=== PATIENT | female | born 1970 | race Caucasian/White ===

== ENCOUNTER 2020-04-28 15:59 | Outpatient (REF) | payer MEDICAID, SELFPAY ==
--- NOTE | ~2020-04-28 | MM_ITS ---
EXAMINATION: MM SCREENING DIGITAL BREAST TOMOSYNTHESIS, BILATERAL CLINICAL INFORMATION: Screening. Asymptomatic. The lifetime risk of breast cancer based on the Tyrer-Cuzick Model is 9%. COMPARISON: Mammography: 04/23/2019, 03/06/2018 TECHNIQUE: Digital breast tomosynthesis is performed in both the craniocaudal and mediolateral oblique views along with computer-aided detection (CAD). Synthesized 2D images are generated from the tomosynthesis. FINDINGS: The breasts are heterogeneously dense, which may obscure small masses (ACR BI-RADS breast composition Category c). The left CC view has subtle parenchymal asymmetry inner quadrant 5.5 cm from nipple. There is no correlate on MLO view. Finding may be related to incompletely compressed glandular tissue and/or summation artifact. Patient will be recalled for additional imaging. The remainder of the bilateral breasts are unremarkable with no significant changes right breast shows no developing density or interval mass. Neither breast shows abnormal calcifications. The low right axillary node on MLO view is stable from 2018. The skin contours are smooth. MM/MM tomosynthesis screening BI IMPRESSION: 1. Left: Asymmetric density inner quadrant on CC view, possibly summation artifact or incompletely compressed glandular tissue. 2. Right: No mammographic evidence of malignancy. ASSESSMENT: BI-RADS 0: Incomplete - Need Additional Imaging Evaluation RECOMMENDATION: 1. Additional views of the left breast (3-D spot CC, 3-D rolled CC x2). 2. Targeted ultrasound if warranted after review of the additional views. 3. Radiology department staff will contact the patient for additional imaging. This patient's information was entered into a reminder system with a target due date for their next mammogram.
== END 2020-04-28 16:00 | disposition home or self-care (01) ==
LOC: HO.MAMMO 15:59
PROVIDERS: PCP Internal Medicine; Visit Provider Internal Medicine
DX: Z12.31 Encounter for screening mammogram for malignant neoplasm of breast (principal)
CPT/HCPCS: 77063; 77067

== ENCOUNTER 2020-05-31 14:32 | Outpatient (REF) | payer MEDICAID, SELFPAY ==
--- NOTE | ~2020-05-31 | MM_ITS ---
EXAMINATION: MM DIAGNOSTIC DIGITAL BREAST TOMOSYNTHESIS, LEFT CLINICAL INFORMATION: Recall from screening for subtle asymmetric density inner left breast on CC view, possibly summation artifact or incompletely compressed glandular tissue. COMPARISON: Mammography: 04/28/2020, 04/23/2019, 03/06/2018 TECHNIQUE: Digital breast tomosynthesis is performed. 2D images are generated from the tomosynthesis. The following views are obtained: Spot CC, rolled CC x2. FINDINGS: The breasts are heterogeneously dense, which may obscure small masses (ACR BI-RADS breast composition Category c). Additional views show no persistent asymmetric density. There is no developing density or interval mass or architectural abnormality. No significant changes. Results are discussed with the patient at time of visit. MM/MM tomosynthesis added views L IMPRESSION: Additional views show no persistent asymmetric density. No significant changes. ASSESSMENT: BI-RADS 1: Negative RECOMMENDATION: Routine annual mammography screening. This patient's information was entered into a reminder system with a target due date for their next mammogram.
== END 2020-05-31 14:33 | disposition home or self-care (01) ==
LOC: HO.MAMMO 14:32
PROVIDERS: PCP Internal Medicine; Visit Provider Internal Medicine
DX: N64.89 Other specified disorders of breast (principal)
CPT/HCPCS: 77061; 77065

== ENCOUNTER 2021-07-17 13:04 | Outpatient (REF) | payer OTHER, MEDICAID, SELFPAY ==
--- NOTE | ~2021-07-17 | MM_ITS ---
EXAMINATION: MM SCREENING DIGITAL BREAST TOMOSYNTHESIS, BILATERAL CLINICAL INFORMATION: Screening. Asymptomatic. The lifetime risk of breast cancer based on the Tyrer-Cuzick Model is 9%. COMPARISON: Mammography: 05/31/2020, 04/28/2020, 04/23/2019, 03/06/2018 TECHNIQUE: Digital breast tomosynthesis is performed in both the craniocaudal and mediolateral oblique views along with computer-aided detection (CAD). Synthesized 2D images are generated from the tomosynthesis. FINDINGS: The breasts are heterogeneously dense, which may obscure small masses (ACR BI-RADS breast composition Category c). There are no significant masses, abnormal calcifications, or other abnormalities. Breast tissue composition borders on average fibroglandular. Parenchymal pattern is similar to prior studies. The axilla and skin contours are unremarkable. MM/MM tomosynthesis screening BI IMPRESSION: No mammographic evidence of malignancy. ASSESSMENT: BI-RADS 1: Negative RECOMMENDATION: Routine annual mammography screening. This patient's information was entered into a reminder system with a target due date for their next mammogram.
== END 2021-07-17 13:05 | disposition home or self-care (01) ==
LOC: HO.MAMMO 13:04
PROVIDERS: PCP Internal Medicine; Visit Provider Internal Medicine
DX: Z12.31 Encounter for screening mammogram for malignant neoplasm of breast (principal)
CPT/HCPCS: 77063; 77067

== ENCOUNTER 2022-01-07 09:51 | Day surgery (SDC) | payer OTHER, MEDICAID, SELFPAY ==
[2022-01-03 09:28] VITALS: BMI 25.3
[2022-01-07 10:18] VITALS: BP 129/89; PULSE 64; RESP 16; TEMP 36.3; O2SAT 99
[2022-01-07] MEDS: Lactated Ringers 1,000 ML 100 ML IVCONT (10:25)
[2022-01-07 10:28] LABS: UPreg QC Valid YES; Urine Pregnancy NEGATIVE (NEGATIVE)
--- NOTE | 2022-01-07 11:06 | HO.ANESPROP2 ---
HPI - Anesthesia Eval Consult details Narrative: Colon surveillance [facility] Past Medical History Medical History delivery delivered Family History Family History Father Pre-diabetes HTN (hypertension) Maternal Grandmother Lung cancer Mother AC (acromioclavicular) arthritis Maternal Grandfather Colon cancer Family history of problems with anesthesia: No Surgical History Surgical History Hx of section Hx of eye surgery History of Problems with Anesthesia: No Social History Social History Household Members: Spouse Alcohol intake: current Alcohol intake frequency: does not drink Patient Tobacco Use Status: Never used Tobacco e-Cigarette/Vaping Use: Never Used Second Hand Smoke Exposure: No Use of substances other than those prescribed or required for medical reasons: No Are you DNR?: No Advance Directives: No Advance Directives Information Provided: Yes Advance Directives on File: No Meds Allergies Allergy/AdvReac Type Severity Reaction Status Date / Time No Known Allergies Allergy Verified 08/30/21 15:00 Active Medications: Current Medications Lactated Ringer's (Lr) 1,000 mls @ 100 mls/hr IVCONT .Q10H TINY Last Admin: 01/07/22 10:25 Dose: 100 mls/hr Home Medications Medication Instructions Recorded Confirmed Last Taken Type buspirone 10 mg tablet 10 mg PO BID 08/30/21 Unknown History fluticasone propionate 110 2 puff PO BID 08/30/21 Unknown History mcg/actuation HFA aerosol inhaler (Flovent HFA) fluticasone propionate 50 2 spray intranasal DAILY 08/30/21 Unknown History mcg/actuation nasal spray,suspension hydrochlorothiazide 25 mg tablet 25 mg PO DAILY 08/30/21 Unknown History trazodone 50 mg tablet 50 mg PO BEDTIME 08/30/21 Unknown History Exam Exam Date and Time: January 07, 2022 1106 Height,Weight and Vital Signs: Height 5 ft 7 in Weight 73.482 kg Last Vital Signs Temp 97.4 F 01/07/22 10:18 Pulse 64 01/07/22 10:18 Resp 16 01/07/22 10:18 BP 129/89 01/07/22 10:18 Pulse Ox 99 01/07/22 10:18 O2 Del Method 01/07/22 10:18 Pertinent Lab Results Pertinent Lab Results: Laboratory Tests 01/07/22 10:03 Urine Test NEGATIVE Airway Mallampati Class: II TM Dist: >3cm Neck ROM: Full Loose/Missing/Broken Teeth: No Heart: [id number] Lungs: cta b/l Assessment and Plan Assessment Anesthesia Assessment: Anesthesia Plan Discussed and Chart Reviewed Final Anesthetic Review Family History of Problems with Anesthesia: No History of Problems with Anesthesia: No NPO: Yes ASA Class: II Final Preanesthetic Review: No Changes in Pt Med Stat, Meds/Allgs Chart Reviewed, Consent Obtained/Reviewed and Anes Risks/Benef Reviewed Patient Risk: Intermediate Procedure Risk: Low Assessment/Block/Sedation in SS: Assess/Block/Sedation-SS Anesthetic Plan Anesthetic Plan: MAC: and Agree w/ Assess. and Plan Disposition: Standard PACU
--- NOTE | 2022-01-07 11:24 | MHC.SHP ---
Pre-Procedural Eval Section A Date of Service: 01/07/22 Section B Chief Complaint: screening Details of Present Illness: Colon cancer screening Relevant Family History (Specify if Yes): No Relevant Social History: None Present Medications: see Short Stay Collaborative assessment Medical History: No relevant PMH History of Previous Operations: Relevant previous surgery/procedure and date(s) (Hx of section Hx of eye surgery) Allergies: Allergies Allergy/AdvReac Type Severity Reaction Status Date / Time No Known Allergies Allergy Verified 08/30/21 15:00 Review of Systems Sugical H&P ROS: Negative: Constitution, Cardiovascular, Respiratory and Gastrointestinal Exam Surgical H&P Exam: Normal: Heart, Normal: Lungs, Normal: Extremities and Normal: Abdomen Plan Diagnosis/Plan: Unchanged I have reviewed the history and physical and performed a pertinent physical examination on my patient. No changes have occurred unless specified.
--- NOTE | 2022-01-07 11:28 | P.BOP_ITS ---
Brief Operative Note Date of Service: 01/07/22 Pre-op diagnosis: Colon cancer screening, FH of colon cancer - Patient reports paternal grandfather diagnosed with colorectal cancer in late 50s.? Patient reports that he only lived for around 9 months after the diagnosis.? Post-op diagnosis: other (Diverticulosis, hemorrhoids) Procedure: COLONOSCOPY TO CECUM Surgeon: Saige Watts MD Anesthesia: MAC Was an Wax Machine Operator used for this Procedure?: Yes Wax Machine Operator: Zaire Calvo Estimated blood loss (mL): 0 Pathology: none sent Condition: stable Disposition: PACU
--- NOTE | 2022-01-07 11:28 | W.PM.OPN ---
Operative Note Operative Note Date of Service: 01/07/22 Narrative: Pre-op diagnosis: Colon cancer screening, FH of colon cancer -?Patient reports paternal grandfather diagnosed with colorectal cancer in late 50s.? Patient reports that he only lived for around 9 months after the diagnosis.? Post-op diagnosis:?other (Diverticulosis, hemorrhoids) Surgeon: Saige Watts MD Anesthesia:?MAC COLONOSCOPY TILL CECUM Consent: Indications for the procedure and potential complications of bleeding, perforation, reaction to medications and missed diagnosis were discussed with the patient and informed consent was obtained. Instrument: Olympus PCF H 190 L variable stiffness pediatric colonoscope Monitoring: Vital signs and clinical assessment, intermittent blood pressure monitoring, continuous EKG monitoring, Pulse oximetry and Carbon Dioxide monitoring were done throughout the procedure. Colon withdrawl time was 18 minutes. Procedure: The patient was placed in the left lateral decubitis position and pre-procedure medications were administered. After a digital rectal examination of the ano-rectum, the video colonoscope was inserted into the rectum and advanced through the colon to the cecum. The colonoscope was slowly withdrawn in a retrograde panoramic fashion and the colon mucosa was carefully examined including a retroflexed view of the rectum. Findings and interventions are described below. Procedure Difficulty: Without difficulty Findings: Terminal Ileum: Not evaluated Cecum: Normal Ascending Colon: Normal Transverse Colon: Normal Descending Colon: Normal Sigmoid Colon: Moderate diverticulosis Rectum: Normal Ano-rectum: Small internal hemorrhoids Colon preparation: Good Impression and Post Procedure Diagnosis: Colonoscopy Findings: No polyps were detected Moderate diverticulosis seen in the sigmoid colon Small hemorrhoids on retroflexed exam. Plan: Patient has an appointment on 01/21/22 in the [facility] with Carolyn Pozo FNP-BC - advised to cancel since no polyps were removed . Repeat Colonoscopy in 5 years due to positive family hx. Above findings were reviewed with the patient and diverticulosis handout was given in the discharge area
[2022-01-07 12:05] VITALS: BP 104/65; PULSE 68; RESP 16; TEMP 36.1; O2SAT 98
[2022-01-07 12:11] VITALS: BP 104/65; PULSE 68; RESP 18; TEMP 36.1; O2SAT 98
[2022-01-07 12:26] VITALS: BP 125/83; PULSE 62; RESP 18; TEMP 36.1; O2SAT 98
== END 2022-01-07 13:07 | disposition home or self-care (01) ==
PROVIDERS: Anesthesiology; PCP Internal Medicine; Visit Provider Internal Medicine Gastroenterology
PROC: 0DJD8ZZ Inspection of Lower Intestinal Tract, Via Natural or Artificial Opening Endoscopic (ICD-10-PCS; CPT 45378; principal; 2022-01-07 11:00)
DX: Z12.11 Encounter for screening for malignant neoplasm of colon (principal); K57.30 Diverticulosis of large intestine without perforation or abscess without bleeding; K64.8 Other hemorrhoids
CPT/HCPCS: 45378; 81025

== ENCOUNTER 2022-07-23 12:49 | Outpatient (REF) | payer MEDICAID, SELFPAY ==
--- NOTE | ~2022-07-23 | MM_ITS ---
EXAMINATION: MM SCREENING DIGITAL BREAST TOMOSYNTHESIS, BILATERAL CLINICAL INFORMATION: Screening. Asymptomatic. The lifetime risk of breast cancer based on the Tyrer-Cuzick Model is 10%. COMPARISON: Mammography: 07/17/2021, 05/31/2020, 04/28/2020, 04/23/2019 TECHNIQUE: Digital breast tomosynthesis is performed in both the craniocaudal and mediolateral oblique views along with computer-aided detection (CAD). Synthesized 2D images are generated from the tomosynthesis. FINDINGS: The breasts are heterogeneously dense, which may obscure small masses (ACR BI-RADS breast composition Category c). There are no significant masses, abnormal calcifications, or other abnormalities. Parenchymal pattern is similar to prior studies. There is no developing density or architectural abnormality. The axilla and skin contours are unremarkable. No significant changes. MM/MM tomosynthesis screening BI IMPRESSION: No mammographic evidence of malignancy. ASSESSMENT: BI-RADS 1: Negative RECOMMENDATION: Routine annual mammography screening. This patient's information was entered into a reminder system with a target due date for their next mammogram.
== END 2022-07-23 12:50 | disposition home or self-care (01) ==
LOC: HO.MAMMO 12:49
PROVIDERS: PCP Internal Medicine; Visit Provider Internal Medicine
DX: Z12.31 Encounter for screening mammogram for malignant neoplasm of breast (principal)
CPT/HCPCS: 77063; 77067

== ENCOUNTER 2023-04-10 16:00 | Outpatient (RCR) | payer OTHER, SELFPAY | END 2023-04-22 13:37 | disposition home or self-care (01) | LOC: HO.PT 16:00 | PROVIDERS: PCP Internal Medicine; Visit Provider Internal Medicine | DX: M25.552 Pain in left hip (principal) | CPT/HCPCS: 97110; 97112; 97140; 97162 ==

== ENCOUNTER 2023-07-14 06:26 | Outpatient (REF) | payer OTHER, SELFPAY ==
[2023-07-14 06:48] LABS: MANUAL DIFF FLAG NO
[2023-07-14 07:53] LABS: Basophils Absolute Auto 0.1 X10*3/uL (0.0-0.2); Eosinophils Absolute Auto 0.2 X10*3/uL (0.0-0.4); Eosinophils Percent Auto 3.3 % (0-4); Hematocrit 37.2 % (37.0-47.0); Hemoglobin 12.3 g/dl (12.0-16.0); Imm Gran Abs Auto 0.01 X10*3/uL (0.00-0.03); Imm Gran Pct Auto 0.2 % (0.0-0.4); Lymphocytes Absolute Auto 1.3 X10*3/uL (1.2-4.9); Lymphocytes Percent Auto 25.5 % (20-40); Mean Corpuscular HGB Conc 33.1 g/dl (31.0-35.0); Mean Corpuscular Hemoglobin 28.3 pg (27.0-33.0); Mean Corpuscular Volume 85.5 fL (80.0-98.0); Mean Platelet Volume 10.2 fL (9.4-12.3); Monocytes Absolute Auto 0.4 X10*3/uL (0.1-1.2); Monocytes Percent Auto 8.1 % (2-11); Neutrophils Percent Auto 61.9 % (45-73); Platelet Count 358 X10*3/uL (160-400); Red Blood Count 4.35 X10*6/uL (4.20-5.50); Red Cell Distribution Width 13.1 % (11.0-16.0); White Blood Count 4.9 X10*3/uL (4.8-10.8)
[2023-07-14 08:31] LABS: Alanine Aminotransferase 16 U/L (0-31); Albumin Level 4.2 g/dL (3.5-5.0); Alkaline Phosphatase 49 U/L (39-117); Anion Gap 12 (12-20); Aspartate Amino Transferase 26 U/L (5-31); Bilirubin Direct 0.1 mg/dL (0.0-0.5); Bilirubin Total 0.4 mg/dL (0.0-1.0); Blood Urea Nitrogen 15 mg/dL (9-16); Calcium 9.9 mg/dL (8.4-10.2); Carbon Dioxide 26 mmol/L (22-29); Chloride 107 mmol/L (96-108); Cholesterol 171 mg/dL (<200); Estimated Glomerular Filt Rate > 60; Glucose Random 93 mg/dL (60-115); HDL Cholesterol 52 mg/dL (>40); LDL Cholesterol Calculated 102 mg/dL (<100); Potassium 3.5 mmol/L (3.3-5.1); Sodium 141 mmol/L (135-145); Total Protein 7.2 g/dL (6.5-8.0); Triglycerides 85 mg/dL (<150)
== END 2023-07-14 06:27 | disposition home or self-care (01) ==
LOC: HO.LAB 06:26
PROVIDERS: PCP Internal Medicine; Visit Provider Internal Medicine
DX: I10 Essential (primary) hypertension (principal)
CPT/HCPCS: 36415; 80048; 80061; 80076; 85025

== ENCOUNTER 2023-08-25 15:11 | Outpatient (REF) | payer OTHER, SELFPAY | END 2023-08-25 15:12 | disposition home or self-care (01) | LOC: HO.MAMMO 15:11 | PROVIDERS: PCP Internal Medicine; Visit Provider Internal Medicine | DX: Z12.31 Encounter for screening mammogram for malignant neoplasm of breast (principal) | CPT/HCPCS: 77063; 77067 ==

== ENCOUNTER → 2023-08-25 15:15 | Outpatient (BNV) | payer OTHER, SELFPAY | PROVIDERS: PCP Internal Medicine; Visit Provider Radiology Diagnostic Radiology | DX: Z12.31 Encounter for screening mammogram for malignant neoplasm of breast (principal) | CPT/HCPCS: 77063; 77067 ==

== ENCOUNTER → 2023-09-15 12:53 | Outpatient (REF) | payer OTHER, SELFPAY | LOC: HO.SL 12:53 | PROVIDERS: PCP Internal Medicine; Visit Provider Internal Medicine | DX: R06.83 Snoring (principal); R06.81 Apnea, not elsewhere classified | CPT/HCPCS: 95806 ==

== ENCOUNTER → 2023-09-15 19:00 | Outpatient (BNV) | payer OTHER, SELFPAY | PROVIDERS: PCP Internal Medicine; Visit Provider Internal Medicine | DX: R06.83 Snoring (principal) | CPT/HCPCS: 95806 ==

== ENCOUNTER 2023-11-19 12:34 | Emergency (ER) | payer OTHER, SELFPAY ==
--- NOTE | ~2023-11-19 | CT_ITS ---
EXAMINATION: CT HEAD WITHOUT CONTRAST CT FACIAL BONES WITHOUT CONTRAST CT CERVICAL SPINE WITHOUT CONTRAST CLINICAL INFORMATION: Fall. Head strike. COMPARISON: None. TECHNIQUE: Imaging was performed from the skull base to vertex without intravenous administration of contrast. In addition, helical noncontrast CT imaging was acquired through the cervical spine and facial bones and source images were reviewed along with axial reconstructions and sagittal and coronal MPRs. [This CT examination was performed using dose optimization techniques as appropriate, variously including the following: *Automated exposure control *Adjustment of mA and/or kV according to patient size (this includes techniques or standardized protocols for targeted exams where dose is matched to indication/reason for exam; i.e. extremities or head) *Use of iterative reconstruction technique] DLP: 263+258+692 mGy-cm FINDINGS: HEAD: No intracranial mass, hemorrhage, or midline shift is visualized. The ventricles and sulci are normal. No extra-axial collections are identified. FACIAL BONES: There is no evidence of an acute facial bone fracture. The orbits are unremarkable in appearance. Moderate mucosal thickening in the inferior left maxillary sinus. CERVICAL SPINE: There is no evidence of acute cervical spine fracture. Vertebral bodies remain normal in height. Mild to moderate degenerative spondylosis of disc height narrowing, vertebral endplate spurring and facet joint arthrosis. No pre- or paravertebral soft tissue abnormality is identified. Limited assessment of the lung apices is unremarkable. CT/CT head/brain wo IV con IMPRESSION: 1. No acute intracranial process or discrete facial bone fracture. 2. No acute cervical spine fracture or traumatic subluxation. Electronically signed by: Vijay Genao MD 11/19/2023 03:53 PM EDT
--- NOTE | ~2023-11-19 | CT_ITS ---
EXAMINATION: CT HEAD WITHOUT CONTRAST CT FACIAL BONES WITHOUT CONTRAST CT CERVICAL SPINE WITHOUT CONTRAST CLINICAL INFORMATION: Fall. Head strike. COMPARISON: None. TECHNIQUE: Imaging was performed from the skull base to vertex without intravenous administration of contrast. In addition, helical noncontrast CT imaging was acquired through the cervical spine and facial bones and source images were reviewed along with axial reconstructions and sagittal and coronal MPRs. [This CT examination was performed using dose optimization techniques as appropriate, variously including the following: *Automated exposure control *Adjustment of mA and/or kV according to patient size (this includes techniques or standardized protocols for targeted exams where dose is matched to indication/reason for exam; i.e. extremities or head) *Use of iterative reconstruction technique] DLP: 263+258+692 mGy-cm FINDINGS: HEAD: No intracranial mass, hemorrhage, or midline shift is visualized. The ventricles and sulci are normal. No extra-axial collections are identified. FACIAL BONES: There is no evidence of an acute facial bone fracture. The orbits are unremarkable in appearance. Moderate mucosal thickening in the inferior left maxillary sinus. CERVICAL SPINE: There is no evidence of acute cervical spine fracture. Vertebral bodies remain normal in height. Mild to moderate degenerative spondylosis of disc height narrowing, vertebral endplate spurring and facet joint arthrosis. No pre- or paravertebral soft tissue abnormality is identified. Limited assessment of the lung apices is unremarkable. CT/CT facial bones wo IV con IMPRESSION: 1. No acute intracranial process or discrete facial bone fracture. 2. No acute cervical spine fracture or traumatic subluxation. Electronically signed by: Vijay Genao MD 11/19/2023 03:53 PM EDT
--- NOTE | ~2023-11-19 | CT_ITS ---
EXAMINATION: CT HEAD WITHOUT CONTRAST CT FACIAL BONES WITHOUT CONTRAST CT CERVICAL SPINE WITHOUT CONTRAST CLINICAL INFORMATION: Fall. Head strike. COMPARISON: None. TECHNIQUE: Imaging was performed from the skull base to vertex without intravenous administration of contrast. In addition, helical noncontrast CT imaging was acquired through the cervical spine and facial bones and source images were reviewed along with axial reconstructions and sagittal and coronal MPRs. [This CT examination was performed using dose optimization techniques as appropriate, variously including the following: *Automated exposure control *Adjustment of mA and/or kV according to patient size (this includes techniques or standardized protocols for targeted exams where dose is matched to indication/reason for exam; i.e. extremities or head) *Use of iterative reconstruction technique] DLP: 263+258+692 mGy-cm FINDINGS: HEAD: No intracranial mass, hemorrhage, or midline shift is visualized. The ventricles and sulci are normal. No extra-axial collections are identified. FACIAL BONES: There is no evidence of an acute facial bone fracture. The orbits are unremarkable in appearance. Moderate mucosal thickening in the inferior left maxillary sinus. CERVICAL SPINE: There is no evidence of acute cervical spine fracture. Vertebral bodies remain normal in height. Mild to moderate degenerative spondylosis of disc height narrowing, vertebral endplate spurring and facet joint arthrosis. No pre- or paravertebral soft tissue abnormality is identified. Limited assessment of the lung apices is unremarkable. CT/CT cervical spine wo IV con IMPRESSION: 1. No acute intracranial process or discrete facial bone fracture. 2. No acute cervical spine fracture or traumatic subluxation. Electronically signed by: Vijay Genao MD 11/19/2023 03:53 PM EDT
[2023-11-19 13:12] VITALS: BP 137/90; PULSE 53; RESP 17; TEMP 36.3; O2SAT 99; BMI 22.9
--- NOTE | 2023-11-19 13:15 | ECG_ITS ---
Test Reason : CP Blood Pressure : / mmHG Vent. Rate : 052 BPM Atrial Rate : 052 BPM P-R Int : 160 ms QRS Dur : 080 ms QT Int : 506 ms P-R-T Axes : 042 034 011 degrees QTc Int : 470 ms Sinus bradycardia Nonspecific T wave abnormality Prolonged QT Abnormal ECG No previous ECGs available Referred By: Amador Kern Electronically Signed By:ROSS CID
--- NOTE | 2023-11-19 13:15 | ED_ITS ---
HPI - General Adult General Chief complaint: Fall Stated complaint: Fall T-1 doesnt remember it Time Seen by Provider: 11/19/23 14:18 Related Data Home Medications ?Medication ?Instructions ?Recorded ?Confirmed buspirone 10 mg tablet 10 mg PO BID 08/30/21 fluticasone propionate 110 2 puff PO BID 08/30/21 mcg/actuation HFA aerosol inhaler (Flovent HFA) fluticasone propionate 50 2 spray intranasal DAILY 08/30/21 mcg/actuation nasal spray,suspension hydrochlorothiazide 25 mg tablet 25 mg PO DAILY 08/30/21 trazodone 50 mg tablet 50 mg PO BEDTIME 08/30/21 Allergies Allergy/AdvReac Type Severity Reaction Status Date / Time No Known Allergies Allergy Verified 11/19/23 13:15 PMFSH Past Medical History Medical History delivery delivered Surgical History Hx of colonoscopy Hx of section Hx of eye surgery Family History Family History Father Pre-diabetes HTN (hypertension) Maternal Grandmother Lung cancer Mother AC (acromioclavicular) arthritis Maternal Grandfather Colon cancer Social History Social History Household Members: Spouse Alcohol intake: current Alcohol intake frequency: does not drink Patient Tobacco Use Status: Never used Tobacco e-Cigarette/Vaping Use: Never Used Second Hand Smoke Exposure: No Advance Directives: No Do you have a plan to hurt others: No Plan Physical Exam ED Vital Signs: Vital Signs - 24 hr 11/19/23 13:12 11/19/23 14:18 Temperature 97.3 F Pulse Rate 53 55 Respiratory Rate 17 18 Blood Pressure 137/90 H 149/85 H Pulse Oximetry 99 100 Oxygen Delivery Method Room Air Room Air BMI result Body Mass Index 22.9 Course Course Course Narrative: This is an RME done by PHILLIP Kern: Additional HPI, ROS, PE not included below will be deferred to primary provider. 52 yo f denies pmhx presents sp fall vs syncope yesterday. Reports she woke up on the bathroom floor and doesnt recall going into the bathroom. Recently covid + and just not feeling well. Not on thinners. Appearance: Alert.? Oriented X3.? No acute cardiopulmonary distress distress.? Head: Normocephalic, + TTP to nose, w/ mild swelling CVS: Pulses normal.? Respiratory: No respiratory distress.? Abdomen: Soft and nontender.? Skin: ? Normal skin color. Extremities: 5/5 strength to bilateral upper and lower extremities Neuro: Oriented X 3.? No motor deficit.? No sensory deficit. No focal neuro deficits. Ambulatory into triage Medications Administered Discontinued Medications Generic Name Dose Route Start Last Admin Trade Name Freq PRN Reason Stop Dose Admin Sodium Chloride 1,000 mls @ 999 mls/hr 11/19/23 14:45 11/19/23 15:11 Ns IV 11/19/23 15:45 999 mls/hr .Q1H1M TINY Administration Medical Decision Making Lab Data 11/19/23 13:46 11/19/23 13:46 Labs: Lab Results 11/19/23 Range/Units 13:46 WBC 4.0 L (4.8-10.8) X10*3/uL RBC 4.74 (4.20-5.50) X10*6/uL Hgb 13.7 (12.0-16.0) g/dl Hct 40.6 (37.0-47.0) % MCV 85.7 (80.0-98.0) fL MCH 28.9 (27.0-33.0) pg MCHC 33.7 (31.0-35.0) g/dl RDW 12.5 (11.0-16.0) % Plt Count 347 (160-400) X10*3/uL MPV 10.0 (9.4-12.3) fL Immature Gran % (Auto) 0.3 (0.0-0.4) % Neut % (Auto) 67.5 (45-73) % Lymph % (Auto) 23.4 (20-40) % [place] % (Auto) 6.5 (2-11) % Eos % (Auto) 2.0 (0-4) % Baso % (Auto) 0.3 (0-2) % Lymph # (Auto) 0.9 L (1.2-4.9) X10*3/uL [place] # (Auto) 0.3 (0.1-1.2) X10*3/uL Eos # (Auto) 0.1 (0.0-0.4) X10*3/uL Baso # (Auto) 0.0 (0.0-0.2) X10*3/uL Abs Immat Gran (auto) 0.01 (0.00-0.03) X10*3/uL Absolute Neuts (auto) 2.7 (2.0-8.3) x10*3/uL Absolute Nucleated RBC 0.000 (0.0-0.012) X10*3/uL Nucleated RBC % (auto) 0.0 (0.0-0.2) /100WBC Sodium 143 (135-145) mmol/L Potassium 3.1 L (3.3-5.1) mmol/L Chloride 104 (96-108) mmol/L Carbon Dioxide 29 (22-29) mmol/L Anion Gap 13 (12-20) BUN 18 H (9-16) mg/dL Creatinine 0.92 (0.5-1.4) mg/dL Estim Creat Clear Calc 71.1 Estimated GFR > 60 Random Glucose 124 H (60-115) mg/dL Calcium 10.0 (8.4-10.2) mg/dL Magnesium 2.3 (1.6-2.6) mg/dL Total Bilirubin 0.3 (0.0-1.0) mg/dL AST 20 (5-31) U/L ALT 14 (0-31) U/L Alkaline Phosphatase 56 (39-117) U/L Total Creatine Kinase 132 (26-140) U/L Troponin I High Sens < 2.7 (<3.5-17.0) ng/L Total Protein 7.7 (6.5-8.0) g/dL Albumin 4.3 (3.5-5.0) g/dL Influenza Type A (PCR) NEGATIVE (Negative) Influenza Type B (PCR) NEGATIVE (Negative) RSV RNA Qual (PCR) NEGATIVE (Negative) SARS-CoV-2 RNA (RT-PCR) POSITIVE A (Negative) Discharge Plan Discharge Clinical Impression: Syncope, Head injury, COVID Patient Disposition: Home, Self-Care Instructions: Syncope (DC), Head Injury (ED), COVID-19 (Coronavirus Disease 2019) (ED) Prescriptions: No Action buspirone 10 mg tablet 10 mg PO BID trazodone 50 mg tablet 50 mg PO BEDTIME hydrochlorothiazide 25 mg tablet 25 mg PO DAILY fluticasone propionate [Flovent HFA] 110 mcg/actuation HFA aerosol inhaler 2 puff PO BID fluticasone propionate 50 mcg/actuation spray,suspension 2 spray intranasal DAILY Referrals: Nilam Henry MD [Primary Care Provider] - 11/21/23 Print Language: [place]ian
[2023-11-19 13:52] LABS: MANUAL DIFF FLAG NO
[2023-11-19 13:54] LABS: Basophils Percent Auto 0.3 % (0-2); Eosinophils Absolute Auto 0.1 X10*3/uL (0.0-0.4); Hematocrit 40.6 % (37.0-47.0); Hemoglobin 13.7 g/dl (12.0-16.0); Imm Gran Abs Auto 0.01 X10*3/uL (0.00-0.03); Imm Gran Pct Auto 0.3 % (0.0-0.4); Lymphocytes Absolute Auto 0.9 X10*3/uL (1.2-4.9); Lymphocytes Percent Auto 23.4 % (20-40); Mean Corpuscular HGB Conc 33.7 g/dl (31.0-35.0); Mean Corpuscular Hemoglobin 28.9 pg (27.0-33.0); Mean Corpuscular Volume 85.7 fL (80.0-98.0); Monocytes Absolute Auto 0.3 X10*3/uL (0.1-1.2); Monocytes Percent Auto 6.5 % (2-11); Neutrophils Absolute Auto 2.7 x10*3/uL (2.0-8.3); Neutrophils Percent Auto 67.5 % (45-73); Platelet Count 347 X10*3/uL (160-400); Red Blood Count 4.74 X10*6/uL (4.20-5.50); Red Cell Distribution Width 12.5 % (11.0-16.0)
[2023-11-19 14:09] LABS: Alanine Aminotransferase 14 U/L (0-31); Albumin Level 4.3 g/dL (3.5-5.0); Alkaline Phosphatase 56 U/L (39-117); Anion Gap 13 (12-20); Aspartate Amino Transferase 20 U/L (5-31); Bilirubin Total 0.3 mg/dL (0.0-1.0); Blood Urea Nitrogen 18 mg/dL (9-16); Carbon Dioxide 29 mmol/L (22-29); Chloride 104 mmol/L (96-108); Creatinine Clr Calc Pharmacy 71.1; Estimated Glomerular Filt Rate > 60; Glucose Random 124 mg/dL (60-115); Magnesium 2.3 mg/dL (1.6-2.6); Potassium 3.1 mmol/L (3.3-5.1); Sodium 143 mmol/L (135-145); Total Protein 7.7 g/dL (6.5-8.0)
[2023-11-19 14:18] VITALS: BP 149/85; PULSE 55; RESP 18; O2SAT 100
[2023-11-19 14:21] LABS: Troponin-I High Sensitivity < 2.7 ng/L (<3.5-17.0)
[2023-11-19 14:34] LABS: Influenza A PCR NEGATIVE (Negative); Influenza B PCR NEGATIVE (Negative); Resp Syncy Virus RNA Qual PCR NEGATIVE (Negative); SARS COV2 PCR INHOUSE POSITIVE (Negative)
--- NOTE | 2023-11-19 14:46 | ED_ITS ---
HPI - Fall General Chief Complaint: Fall Stated Complaint: Fall T-1 doesnt remember it Time Seen by Provider: 11/19/23 14:18 History of Present Illness HPI Narrative: Patient is a 52-year-old female presented today with having generalized malaise weakness. Patient had some coughing congestion also have some diarrhea. Tested positive for COVID on Friday night. Started on Paxlovid on Friday. Patient on Friday night into Friday had an episode she was found on the ground. She might have hit her head and complaining of pain to her face and her nose. Patient did not come to the ED. Got some rest and elected to come to the ED on Friday. Patient positive generalized malaise. Denies any focal weakness. Denies any diaphoresis. Denies any chest pain. Positive subjective fever on and off. Patient from home. Positive history of hypertension currently is on amlodipine and hydrochlorothiazide. Positive history of anxiety. Not on blood thinners. No history of high cholesterol, smoking, mi. no family history of MO. no leg swelling. No history of blood clots. Related Data Home Medications ?Medication ?Instructions ?Recorded ?Confirmed buspirone 10 mg tablet 10 mg PO BID 08/30/21 fluticasone propionate 110 2 puff PO BID 08/30/21 mcg/actuation HFA aerosol inhaler (Flovent HFA) fluticasone propionate 50 2 spray intranasal DAILY 08/30/21 mcg/actuation nasal spray,suspension hydrochlorothiazide 25 mg tablet 25 mg PO DAILY 08/30/21 trazodone 50 mg tablet 50 mg PO BEDTIME 08/30/21 Allergies Allergy/AdvReac Type Severity Reaction Status Date / Time No Known Allergies Allergy Verified 11/19/23 13:15 Review of Systems 2 Review of Systems: Positive generalized malaise weakness positive swelling to the bridge of the nose and to the lips. Yes all other systems are reviewed and are negative PMFSH Past Medical History Attestation statement: The following information was validated with the patient. Medical History delivery delivered Surgical History Hx of colonoscopy Hx of section Hx of eye surgery Family History Family History Father Pre-diabetes HTN (hypertension) Maternal Grandmother Lung cancer Mother AC (acromioclavicular) arthritis Maternal Grandfather Colon cancer Social History Social History Household Members: Spouse Alcohol intake: current Alcohol intake frequency: does not drink Patient Tobacco Use Status: Never used Tobacco e-Cigarette/Vaping Use: Never Used Second Hand Smoke Exposure: No Advance Directives: No Do you have a plan to hurt others: No Plan Physical Exam 2 Vital Signs: Vital Signs: Last Vital Signs Temp 97.3 F 11/19/23 13:12 Pulse 55 11/19/23 14:18 Resp 18 11/19/23 14:18 BP 149/85 H 11/19/23 14:18 Pulse Ox 100 11/19/23 14:18 O2 Del Method Room Air 11/19/23 14:18 BMI result Body Mass Index 22.9 Appearance: Alert. Oriented X3. No acute distress. Eyes: Pupils equal, round and reactive to light. ENT: Pharynx normal. There is no midface tenderness. There is no malocclusion. There is mild swelling to the bilateral upper and lower lips. There is no grewal sign is no raccoon eyes. Neck: Normal inspection. Neck supple. No lymph nodes noted. No crepitus CVS: Normal heart rate and rhythm. Pulses normal. Normal S1 and S2 Respiratory: Clear bilaterally to auscultation Abdomen: Soft and nontender. No rigidity. No distention. good BS x4 Skin: Skin warm and dry. Normal skin color. Normal skin turgor. Extremities: No lower extremity edema. Neurovascular intact to all extremities. No Lacerations. No Rash Neuro: Oriented X 3. No motor deficit. No sensory deficit. Moving all extermities. No slurred speech Medications Administered Generic Name Dose Route Start Last Admin Trade Name Freq PRN Reason Stop Dose Admin Sodium Chloride 1,000 mls @ 999 mls/hr 11/19/23 14:45 11/19/23 15:11 Ns IV 11/19/23 15:45 999 mls/hr .Q1H1M TINY Administration Medical Decision Making Medical Decision Making MDM Narrative: Patient's COVID test came back positive. My interpretation of patient's EKG showed a sinus rhythm heart rate is 50 [place] QRS QTC normal no acute ST segment elevation neurologically patient is intact. Question etiology of the fall more likely vasovagal although 1 can not be sure. Enzymes ordered there were negative. Patient's EKG showed no signs of ACS. Has no risk for PE. Patient's electrolytes are normal. LFTs are normal. COVID test is positive. IV fluids ordered. No acute distress O2 sat is 99-100% on room air lung exam is clear. Differential Diagnosis Differential Diagnoses: The differential diagnosis associated with the presentation includes Arrhythmia, syncope, ACS, dehydration, COVID Admission/Observation Consideration of admission/observation: Escalation of care including admission/observation considered Lab Data MDM Lab Attestation statement: I reviewed the patient's lab results. 11/19/23 13:46 11/19/23 13:46 Labs: Lab Results 11/19/23 Range/Units 13:46 WBC 4.0 L (4.8-10.8) X10*3/uL RBC 4.74 (4.20-5.50) X10*6/uL Hgb 13.7 (12.0-16.0) g/dl Hct 40.6 (37.0-47.0) % MCV 85.7 (80.0-98.0) fL MCH 28.9 (27.0-33.0) pg MCHC 33.7 (31.0-35.0) g/dl RDW 12.5 (11.0-16.0) % Plt Count 347 (160-400) X10*3/uL MPV 10.0 (9.4-12.3) fL Immature Gran % (Auto) 0.3 (0.0-0.4) % Neut % (Auto) 67.5 (45-73) % Lymph % (Auto) 23.4 (20-40) % Latimer % (Auto) 6.5 (2-11) % Eos % (Auto) 2.0 (0-4) % Baso % (Auto) 0.3 (0-2) % Lymph # (Auto) 0.9 L (1.2-4.9) X10*3/uL [place]imer # (Auto) 0.3 (0.1-1.2) X10*3/uL Eos # (Auto) 0.1 (0.0-0.4) X10*3/uL Baso # (Auto) 0.0 (0.0-0.2) X10*3/uL Abs Immat Gran (auto) 0.01 (0.00-0.03) X10*3/uL Absolute Neuts (auto) 2.7 (2.0-8.3) x10*3/uL Absolute Nucleated RBC 0.000 (0.0-0.012) X10*3/uL Nucleated RBC % (auto) 0.0 (0.0-0.2) /100WBC Sodium 143 (135-145) mmol/L Potassium 3.1 L (3.3-5.1) mmol/L Chloride 104 (96-108) mmol/L Carbon Dioxide 29 (22-29) mmol/L Anion Gap 13 (12-20) BUN 18 H (9-16) mg/dL Creatinine 0.92 (0.5-1.4) mg/dL Estim Creat Clear Calc 71.1 Estimated GFR > 60 Random Glucose 124 H (60-115) mg/dL Calcium 10.0 (8.4-10.2) mg/dL Magnesium 2.3 (1.6-2.6) mg/dL Total Bilirubin 0.3 (0.0-1.0) mg/dL AST 20 (5-31) U/L ALT 14 (0-31) U/L Alkaline Phosphatase 56 (39-117) U/L Total Creatine Kinase 132 (26-140) U/L Troponin I High Sens < 2.7 (<3.5-17.0) ng/L Total Protein 7.7 (6.5-8.0) g/dL Albumin 4.3 (3.5-5.0) g/dL Influenza Type A (PCR) NEGATIVE (Negative) Influenza Type B (PCR) NEGATIVE (Negative) RSV RNA Qual (PCR) NEGATIVE (Negative) SARS-CoV-2 RNA (RT-PCR) POSITIVE A (Negative) Independent Interpretation I performed an independent interpretation of an: EKG (Sinus heart rate is 50 [place] QRS QTC within normal limits there is diffuse T-wave flattening noted.) Independent Historian Clinical information obtained from an independent historian. History obtained from or confirmed by: Spouse Chronic Conditions History of hypertension and anxiety Discharge Plan Discharge Clinical Impression: Syncope, Head injury, COVID Patient Disposition: Still a Patient Instructions: Syncope (DC), Head Injury (ED), COVID-19 (Coronavirus Disease 2019) (ED) Prescriptions: No Action buspirone 10 mg tablet 10 mg PO BID trazodone 50 mg tablet 50 mg PO BEDTIME hydrochlorothiazide 25 mg tablet 25 mg PO DAILY fluticasone propionate [Flovent HFA] 110 mcg/actuation HFA aerosol inhaler 2 puff PO BID fluticasone propionate 50 mcg/actuation spray,suspension 2 spray intranasal DAILY Referrals: Nilam Henry MD [Primary Care Provider] - 11/21/23 Print Language: Bahamian
[2023-11-19] MEDS: 0.9 % Sodium Chloride 1,000 ML 999 ML IV ×2 (15:11→16:09)
[2023-11-19 16:48] VITALS: BP 130/80; PULSE 61; RESP 18; TEMP 37; O2SAT 97
== END 2023-11-19 16:51 | disposition home or self-care (01) ==
PROVIDERS: Physician Assistant; Emergency Provider Emergency Medicine Emergency Medical Services; PCP Internal Medicine
DX: U07.1 COVID-19 (principal); R55 Syncope and collapse; S09.90XA Unspecified injury of head, initial encounter; W19.XXXA Unspecified fall, initial encounter; Y93.9 Activity, unspecified; Y92.9 Unspecified place or not applicable; Y99.9 Unspecified external cause status; R53.1 Weakness; R53.81 Other malaise; R05.9 Cough, unspecified; R19.7 Diarrhea, unspecified; R07.9 Chest pain, unspecified
CPT/HCPCS: 0241U; 36415; 70450; 70486; 72125; 80053; 82550; 83735; 84484; 85025; 93005; 96360; 96361; 99284

== ENCOUNTER 2024-01-21 14:51 | Outpatient (REF) | payer OTHER, SELFPAY ==
--- NOTE | 2024-01-21 14:54 | EMG_ITS ---
Chief complaint: Left hand pain Reason for referral: Evaluate for Carpal Tunnel Syndrome Referred by: Dr. Hopper Procedure done: Left upper extremity NCS/EMG Precautions and/or limitations: None The limb temperature was monitored continuously and remained between 32-36 degrees C during the performance of the NCS. Nerve Conduction Studies Anti Sensory Summary Table ?Stim Site NR Onset (ms) Norm Onset (ms) Peak (ms) Norm Peak (ms) O-P Amp (?V) Norm O-P Amp Site1 Site2 Delta-0 (ms) Dist (cm) Alen (m/s) Norm Alen (m/s) Left Median Anti Sensory (2nd Digit) Wrist ? 3.9 4.9 <3.6 2.9 >10 Wrist 2nd Digit 3.9 14.0 36 Left Radial Anti Sensory (Thumb) Forearm ? 1.4 2.5 <3.1 13.0 Forearm Thumb 1.4 0.0 Left Ulnar Anti Sensory (5th Digit) Wrist ? 0.3 3.7 <3.7 16.4 >15.0 Wrist 5th Digit 0.3 14.0 467 Motor Summary Table ?Stim Site NR Onset (ms) Norm Onset (ms) O-P Amp (mV) Norm O-P Amp iAmp (mV) Amp (1st) (%) Site1 Site2 Delta-0 (ms) Dist (cm) Alen (m/s) Norm Alen (m/s) Left Median Motor (Abd Poll Brev) Wrist ? 4.7 <3.9 6.9 >4.5 8.1 100.0 Elbow Wrist 5.0 20.5 41 >45 Elbow ? 9.7 6.4 7.6 92.8 Left Ulnar Motor (Abd Dig Minimi) Wrist ? 2.4 <3.0 5.0 >5 6.3 100.0 B Elbow Wrist 3.9 18.0 46 >45 B Elbow ? 6.3 3.6 5.1 78.3 A Elbow B Elbow 1.7 10.0 59 >45 A Elbow ? 8.0 5.2 7.3 113.0 EMG ?Side Muscle Nerve Root Ins Act Fibs Psw Amp Dur Poly Recrt Int Pat Comment Left 1stDorInt Ulnar C8-T1 Nml Nml Nml Nml Nml 0 Nml Complete Left FlexCarRad Median C6-7 Nml Nml Nml Nml Nml 0 Nml Complete Left Biceps Musculocut C5-6 Nml Nml Nml Nml Nml 0 Nml Complete Left Triceps Radial C6-7-8 Nml Nml Nml Nml Nml 0 Nml Complete Left Deltoid Axillary C5-6 Nml Nml Nml Nml Nml 0 Nml Complete FINDINGS: Left median motor nerve showed prolonged distal latency, normal amplitude and slow conduction velocity. Left median sensory nerve showed prolonged peak latency and small amplitude. All other nerves tested were within normal. Concentric needle EMG was performed in selected muscles of the left upper extremity. Study did not reveal signs of electric abnormalities as shown in the table above. IMPRESSION: 1. This is an abnormal study. 2. There is electrodiagnostic evidence for left moderate-severe median neuropathy at the wrist, consistent with carpal tunnel syndrome. 3. There is no electrodiagnostic evidence for ulnar neuropathy, brachial plexopathy, or cervical radiculopathy. Thank you for your kind referral. Soumya Hernandes MD, HAROON Board Certified, [place] [employer] and [employer] (ABPMR) Board Certified, [place] Board [employer] Electro[employer]ostic [employer] (ABEM) [place] [id number] [facility]
== END 2024-01-21 14:52 | disposition home or self-care (01) ==
LOC: HO.NEURO 14:51
PROVIDERS: PCP Internal Medicine; Visit Provider Internal Medicine
DX: R20.0 Anesthesia of skin (principal); R20.2 Paresthesia of skin
CPT/HCPCS: 95886; 95909

== ENCOUNTER → 2024-01-21 14:54 | Outpatient (BNV) | payer OTHER, SELFPAY | PROVIDERS: PCP Internal Medicine; Visit Provider Physical Medicine & Rehabilitation | DX: G56.02 Carpal tunnel syndrome, left upper limb (principal) | CPT/HCPCS: 95886; 95909 ==

== ENCOUNTER 2024-05-13 17:39 | Outpatient (REF) | payer MEDICAID, SELFPAY ==
--- OUTSIDE RECORDS SUMMARY | 2024-05-13 19:39 | XMS_ITS | Encounter Summary ---
Author Organization [employer] Address [address] [facility] [address] [place] [address] Care Team Providers Care Machinist General Name Role Phone Nilam Henry MD Primary Care Provide r Encounter Details Date Type Department Care Team (Late st Contact Info) Description 05/13/2024 1:20 PM EST Office Visit [facility] [address] [place] [address] Kristen Cooper DO [address] [place] [address] Labial lesion (Primary Dx) Social History Tobacco Use Types Packs/Day Years Used Date Smoking Tobacco: Never Passive Smoke Exposure: Never Smokeless Tobacco: Never Alcohol Use Standard Drinks/Week Comments Never 0 (1 standard drink = 0.6 oz pur e alcohol) Alcohol Answer Date Recorded Frequency of Alcohol Consumption Not on file 12/29/2023 Average Number of Drinks Not on file 024 Frequency of Binge Drinking Not on file 12/09 Score 0 12/29/2023 Depression Answer Date Recorded Patient Health Questionnaire-9 Score 12 11/27/2023 Patient Health Questionnaire-9 Score 12 11/27/2023 Last PHQ-9: Questionnaire Data Not on file 0 11/27/2023 Housing Stability Answer Date Recorded What is your housing situation today? I have anjalichato rehman 10/29/[address] you li ve. Do you have problems with any of the following? Mold 10/29/2023 Food Insecurity Answer Date Recorded Within the past 12 months, y ou worried that your food would run out before you got money to buy more: Never True 10/29/2023 Within the past 12 months,th e food you bought just didn't last and you didn't have enough money to get more: Never True Transportation Answer Date Recorded In the past 12 months, has l ack of transportation kept you from medical appts, meetings, work or from getting things needed for daily living? No 10/29/2023 Utilities Answer Date Recorded In the past 12 months, has t he electric, gas, oil or water company threatened to shut off services in your home? No 10/29/2023 Depression Answer Date Recorded Patient Health Questionnaire-2 Score 3 11/27/2023 Internet Access Answer Date Recorded Internet Access Q1 Yes 11/07/2023 Internet Access Q2 Not on file 11/07/2023 Comments Unknown Sex and Gender Information Value Date Recorded Sex Assigned at Female 01/07/2022 10:33 AM EDT Legal Sex Female 10:33 AM EDT Gender Identity Female 01/07/2022 10:33 AM EDT Sexual Orientation Straight 01/07/2022 10 :33 AM EDT documented as of this encounter Last Filed Vital Signs Vital Sign Reading Time Taken Comments Blood Pressure 124/88 05/13/2024 1:15 PM EST Pulse 84 05/13/2024 1:15 PM EST Temperature 37.1 ??C (98.7 ??F) 05/13/2024 1:15 PM ES T Respiratory Rate 19 05/13/2024 1:15 PM EST Oxygen Saturation 98% 05/13/2024 1:15 PM EST Inhaled Oxygen Concentration - - Weight 67.3 kg (148 lb 6 oz) 05/13/2024 1:15 PM EST Height 170.2 cm (5' 7 ) 05/13/2024 1:15 PM EST Body Mass Index 23.24 05/13/2024 1:15 PM EST documented in this encounter Progress Notes * Kristen Cooper, DO - 05/13/2024 1:20 PM EST JEANETH Fabian Melara is a 53 y.o. female who presents for Sick Visit. She presents to [place] today c/o vaginal blisters. She says that the blisters started about 5 days ago. She has never had vaginal blisters or lesions previously. She says that she took and shower last night and felt the bumps so she had her take a look. She says that he told her that there were 6 blisters with white center and a red ring around the outside of each. She has not noticed any bleeding or discharge from the blisters. She denies any pain or burning at the blister site. 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 She says that the blisters burn when she urinates. She does not feel that she has a UTI. She drinksa lot of water. She denies any urinary frequency. No hematuria or frequency. She denies any abnormal vaginal discharge. She does shave but has not done so in a couple of weeks. She and her were sexually active while they were in [place] on vacation last week. Her blisters appeared a couple days after returning home. She denies any other lifetime sexual partners and her has told her the same. 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 The problem is unchanged. The affected locations include the groin. The rash is characterized by burning and blistering. She was exposed to nothing. Pertinent negatives include no cough, diarrhea, fever, shortness of breath or vomiting. Past treatments include nothing. Review of Systems Constitutional: Negative for activity change, appetite change, chills, fever and unexpected weight change. Respiratory: Negative for cough and shortness of breath. Cardiovascular: Negative for chest pain, palpitations and leg swelling. Gastrointestinal: Negative for abdominal pain, diarrhea, nausea and vomiting. Genitourinary: Positive for dysuria and genital sores. Skin: Positive for rash. Neurological: Negative for weakness and headaches. Patient Active Problem List Diagnosis Allergic rhinitis Anxiety Apnea Essential hypertension Hypertensive disorder Insomnia Mild intermittent asthma Mood disorder (CMS/HCC) Persistent hypersomnia Recurrent major depression (CMS/HCC) Snoring Visual impairment Numbness and tingling in left hand Encounter for physical examination Left hip pain Chronic sinusitis Discoloration of skin No Known Allergies OBJECTIVE Visit Vitals BP 124/88 (BP Location: Right arm, Patient Position: Sitting, BP Cuff Size: Adult) Pulse 84 Temp 98.7 ??F (37.1 ??C) (Oral) Resp 19 Ht 5' 7 (1.702 m) Wt 148 lb 6 oz (67.3 kg) SpO2 98% BMI 23.24 kg/m?? Smoking Status Never BSA 1.78 m?? Physical Exam Constitutional: General: She is not in acute distress. Appearance: Normal appearance. Cardiovascular: Rate and Rhythm: Normal rate and regular rhythm. Heart sounds: Normal heart sounds. No murmur heard. Pulmonary: Effort: Pulmonary effort is normal. Breath sounds: Normal breath sounds. No wheezing or rhonchi. Genitourinary: Labia: Right: Lesion present. Comments: Multiple small round vesicles lower R labia minora with couple unroofed Neurological: General: No focal deficit present. Mental Status: She is alert and oriented to person, place, and time. Cranial Nerves: No cranial nerve deficit. Motor: No weakness. Gait: Gait normal. Psychiatric: Mood and Affect: Mood normal. 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 -send herpes culture -reviewed HSV epidemiology and infection with pt -she defers treatment with valtrex, given onset of sx >5 days ago -encouraged vaseline use to keep open lesions covered -consider STI/HIV testing -advised contact [facility] if sx change or do not resolve, she agrees with plans --Follow-up with PCP as scheduled or sooner prn-- Current Outpatient Medications: amLODIPine (Norvasc) 2.5 MG tablet, TAKE 1 TABLET BY MOUTH EVERY DAY, Disp: 90 tablet, Rfl: 1 busPIRone (Buspar) 15 MG tablet, Take 1 tablet by mouth 2 times daily., Disp: , Rfl: hydroCHLOROthiazide (HYDRODiuril) 25 MG tablet, TAKE 1 TABLET BY MOUTH EVERY DAY IN THE MORNING, Disp: 90 tablet, Rfl: 1 loratadine (Claritin) 10 MG tablet, TAKE 1 TABLET BY MOUTH EVERY MORNING, Disp: 90 tablet, Rfl: 3 fymarhbs-kefmdgvjfz-bfnepcjeo (Neosporin) 5-400-5000 ointment, Apply topically if needed in the morning, at noon, and at bedtime for irritation., Disp: 28 g, Rfl: 2 Scribe Attestation: Rory Browne, am serving as a scribe to document services personally performed by Kristen Patino, based on the patient's response to questions by provider and provider's statements to me. 05/13/24 3:00 PM Physicians Attestation: Kristen Browne DO, have reviewed the information by the scribe, Rory Briceno, for accuracy and agree with its content. documented in this encounter Plan of Treatment Scheduled Orders Name Type Priority Associated Diagnoses Orde r Schedule Herpes Simplex Virus Culture with Reflex Typing Microbiology Routine Labial lesion Expected: 05/13/2024, Expires: 05/13/2025 documented as of this encounter Visit Diagnoses Diagnosis Labial lesion- Primary Other specified noninflammatory disorder of vulva and perineum documented in this encounter Additional Health Concerns Assessment Noted Time PHQ-9 Depression Total Score: 12 11/26/ 024 11:11 AM EDT documented as of this encounter Care Teams Machinist General Relationship Specialty Start Date End Date Nilam Henry MD [address] [place] [address] PCP - General Family Medicine 02/26/19 documented as of this encounter
--- OUTSIDE RECORDS SUMMARY | 2024-05-13 19:39 | XMS_ITS | Encounter Summary ---
Author Organization [employer] Address [address] [facility] [address] [place] [address] Care Team Providers Care Hub Lead Name Role Phone Nilam Henry MD Primary Care Provide r Reason for Visit * Reason Comments Med Refill Encounter Details Date Type Department Care Team (Late st Contact Info) Description 12/03/2023 Refill [facility] [address] [place] [address] Nilam Henry MD [address] [place] [address] Essential hypertension Social History Tobacco Use Types Packs/Day Years Used Date Smoking Tobacco: Never Passive Smoke Exposure: Never Smokeless Tobacco: Never Alcohol Use Standard Drinks/Week Comments Never 0 (1 standard drink = 0.6 oz pur e alcohol) Depression Answer Date Recorded Patient Health Questionnaire-9 [...] AM EDT documented as of this encounter Plan of Treatment Not on file documented as of this encounter Visit Diagnoses Diagnosis Essential hypertension Unspecified essential hypertension documented in this encounter Additional Health Concerns Assessment Noted Time PHQ-9 Depression Total Score: 12 024 11:11 AM EDT documented as of this encounter Care Teams Hub Lead Relationship Specialty Start Date End Date Nilam Henry MD [address] [place] [address] PCP - General Family Medicine 02/26/19 documented as of this encounter
--- OUTSIDE RECORDS SUMMARY | 2024-05-13 19:39 | XMS_ITS | Clinical Summary ---
Author Organization [employer] Address [address] [facility] [address] [place] [address] Care Team Providers Care Labor Service Representative Name Role Phone Nilam Henry MD Primary Care Provide r Allergies No known active allergies Medications loratadine (Claritin) 10 MG tablet TAKE 1 TABLET BY MOUTH EVERY MORNING 90 tablet 3 11/13/19 23 Active hydroCHLOROthia zide (HYDRODiuril) 25 MG tabletIndicatio ns:Essential hypertension TAKE 1 TABLET BY MOUTH EVERY DAY IN THE MORNING 90 tablet 1 12/18/19 24 Active busPIRone (Buspar) 15 MG tablet Take 1 tablet by mouth 2 times daily. 12/05/19 24 Active amLODIPine (Norvasc) 2.5 MG tabletIndicatio ns:Essential hypertension TAKE 1 TABLET BY MOUTH EVERY DAY 90 tablet 1 03/11/19 25 Active neomycin-bacitr acin-polymyxin (Neosporin) 5-400-5000 ointment Apply topically if needed in the morning, at noon, and at bedtime for irritation. 28 g 2 05/14/19 25 Active Dextromethorpha n-guaiFENesin (Mucinex DM) 30-600 MG tablet sustained-relea se 12 hour Use 1 tab TID 28 tablet 11/17/19 24 025 Discontinued Paxlovid, 300/100, 20 x 150 MG & 10 x 100MG tablet therapy pack TAKE 3 TABLETS BY MOUTH TWICE DAILY DIRECTED ON BOX FOR 5 DAYS 30 each 11/17/19 24 025 Discontinued(Th erapy completed) Active Problems Problem Noted Date Diagnosed Date Discoloration of skin 07/22/2023 Chronic sinusitis 06/20/2023 Left hip pain 02/19/2023 Encounter for physical examination 09/17/2022 Assessment & Plan (12/29/2023 4:39 PM EDT): No concern at this visit Patient update on covid and flu vaccine Next physical assessment 2024 Assessment & Plan (09/17/2022 10:13 AM EDT): Pelvic exam done, samples send to lab patient will be contacted with results RTC 1 year PE Numbness and tingling in left hand 07/19/2022 Assessment & Plan (12/29/2023 4:34 PM EDT): Awaiting for nerve conduction studies Wear wrist brace as recommended Assessment & Plan (02/19/2023 4:52 PM EST): Waiting for nerve conduction studies Wrist brace recommended Assessment & Plan (09/17/2022 10:13 AM EDT): Patient will be contacted with results Allergic rhinitis 07/18/2022 Assessment & Plan (07/22/2023 2:07 PM EDT): C/w loratadine daily Apnea 07/18/2022 Essential hypertension 07/18/2022 Assessment & Plan (07/22/2023 2:07 PM EDT): - Aerobic exercise to reduce BP. Initial goal of 30 min walk 3-5x/week. Increase as tolerated. - low-sodium diet (goal: <2g/day) and heart healthy diet such as DASH to reduce BP and prevent ASCVD. - Home BP monitoring 1-2 x day with goal of <140/90. - Seek immediate medical attention for chest pain, palpitations, SOB, syncope, or sudden changes in mental status. - Do not change or discontinue current prescriptions without first consulting health care provider Assessment & Plan (06/20/2023 4:22 PM EDT): I advise: - Aerobic exercise to reduce BP. Initial goal of 30 min walk 3-5x/week. Increase as tolerated. - low-sodium diet (goal: <2g/day) and heart healthy diet such as DASH to reduce BP and prevent ASCVD. - Home BP monitoring 1-2 x day with goal of <140/90. - Seek immediate medical attention for chest pain, palpitations, SOB, syncope, or sudden changes in mental status. - Do not change or discontinue current prescriptions without first consulting health care provider Assessment & Plan (02/19/2023 4:52 PM EST): - Aerobic exercise to reduce BP. Initial goal of 30 min walk 3-5x/week. Increase as tolerated. - low-sodium diet (goal: <2g/day) and heart healthy diet such as DASH to reduce BP and prevent ASCVD. - Home BP monitoring 1-2 x day with goal of <140/90. - Seek immediate medical attention for chest pain, palpitations, SOB, syncope, or sudden changes in mental status. - Do not change or discontinue current prescriptions without first consulting health care provider Assessment & Plan (07/19/2022 12:28 PM EDT): Maintenance: BMP: ordered Lipid Panel: ordered ASCVD Risk: Calculate pending updated labs - Aerobic exercise to reduce BP. Initial goal of 30 min walk 3-5x/week. Increase as tolerated. - low-sodium diet (goal: <2g/day) and heart healthy diet such as DASH to reduce BP and prevent ASCVD. - Home BP monitoring 1-2 x day with goal of <140/90. - Seek immediate medical attention for chest pain, palpitations, SOB, syncope, or sudden changes in mental status. -I re-start hydrochlorothiazide - Do not change or discontinue current prescriptions without first consulting health care provider Insomnia 07/18/2022 Mild intermittent asthma 07/18/2022 Mood disorder 07/18/2022 Persistent hypersomnia 07/18/2022 Snoring 07/18/2022 Assessment & Plan (07/22/2023 2:07 PM EDT): Awaiting for sleep studies Visual impairment 07/18/2022 Hypertensive disorder 11/07/2017 Anxiety 04/07/2017 Recurrent major depression 04/07/2017 Encounters Date Type Department Care Team Description 05/13/2024 1:20 PM EST Office Visit [facility] [address] [place] [address] Kristen Cooper DO Labial lesion (Primary Dx) 03/11/2024 Refill [facility] [address] [place], [place] [phone] Nilam Henry MD Essential hypertension from Last 3 Months Immunizations Name Administration Dates Next Due INFLUENZA VACCINE QUADRIVALE NT RECOMBINANT PRESERVATIVE FREE RIV4 01/05/2019 Influenza Injectable Quadriv alant Preservative Free IIV4 MDCK 01/30/2021,01/04/2020 Influenza injectable quadriv alent preservative free 11/14/2022,12/16/2021,03/05/2018 Influenza, seasonal, injecta ble, preservative free 12/19/2023 Pfizer Covid-19 Vaccine 12+ 12/19/2023 Tdap 04/07/2017 Family History Medical History Relation Name Comments Pulmonary embolism Mother Relation Name Status Comments Mother Social History Tobacco Use Types Packs/Day Years Used Date Smoking Tobacco: Never Passive Smoke Exposure: Never Smokeless Tobacco: Never Tobacco Cessation:Counseling Given: Not Answered Alcohol Use Standard Drinks/Week Comments Never 0 [...] is your housing situation today? I have anjali rehman 10/29/[address] you [...] Orientation Straight 01/07/2022 10 :33 AM EDT Last Filed Vital Signs Vital Sign Reading [...] Mass Index 23.24 05/13/2024 1:15 PM EST Plan of Treatment Health Maintenance Due Date Last Done Comments CT Colonography 1972 FIT DNA/Cologuard 1972 FIT 1972 FOBT 1972 HIV Screening 1972 Sigmoidoscopy 1972 Family Planning (PISQ) 12/09/1987 Hepatitis C Screening 1990 Hepatitis B Vaccines (1 of 3 - 19+ 3-dose series) 12/09/1991 Pneumococcal Vaccine: 50+ Years (1 of 2 - PCV) 12/09/1991 Zoster Vaccines (1 of 2) 2022 Depression Monitoring (PHQ-9) 05/26/2024 11/27/2023, 11/27/2023 Mammogram 08/24/2024 08/25/2023, 07/08, 07/23/2022, Additional history exists SDOH Screening 10/28/2024 10/29/2023 Depression Screening 11/26/2024 11/27/2023, 11/27/19 24 Alcohol/Substance Use Screening 12/28/2024 12/29/2023 Tobacco Screening 05/13/2025 05/13/2024 Colonoscopy 01/07/2027 Colorectal Cancer Screening 01/07/2027 DTaP/Tdap/Td Vaccines (2 - Td or Tdap) 04/07/2027 04/07/2017 Cervical Cancer Screening 09/18/2027 HPV/Cotest 09/18/2027 09/17/2022, 11/07/2017 Pap Smear 09/18/2027 09/17/2022 Lipid Panel 07/13/2028 07/14/2023, 07/08, 07/06/2021 RSV Patients and Patients Aged 60 years or older (1 - 1-dose 75+ series) 12/09/2047 COVID-19 Vaccine Completed 12/19/2023, 12/2021, 05/05/2020, Additional history exists Influenza Vaccine Completed 12/19/2023, , 12/16/2021, Additional history exists HIB Vaccines Aged Out No longer eligi ble based on patient's age to complete this topic HPV Vaccines Aged Out No longer eligi ble based on patient's age to complete this topic Hepatitis A Vaccines Aged Out No long er eligible based on patient's age to complete this topic IPV Vaccines Aged Out No longer eligi ble based on patient's age to complete this topic Meningococcal Vaccine Aged Out No flavia varinder eligible based on patient's age to complete this topic RSV under 20 months Aged Out No longe r eligible based on patient's age to complete this topic Rotavirus Vaccines Aged Out No longer eligible based on patient's age to complete this topic Procedures Procedure Name Priority Date/Time Associated Diagnosis Comments BI MAMMOGRAM SCREENING TOMOSYNTHESIS BILATERAL Routine 08/25/2023 3:45 PM EDT LIPID PANEL, STANDARD Routine 07/14/2023 6:44 AM EDT Essential hypertension HM PAP/HPV Routine 09/17/2022 from Last 3 Months or Most Recently Relevant to Health Maintenance Results * BI Mammogram Screening Tomosynthesis Bilateral (08/25/2023 3:45 PM EDT) Anatomical Region Laterality Modality Breast Bilateral Mammography 08/25/2023 3:45 PM EDT Narrative 09/22/2023 4:43 PM EDT ? [facility] ? [address] ?[place] [address] ? Mammography Report ? Signed ? Patient: Venkata Julio ?MR#: M ?? [id number] ? : 1970 ?Acct:[id number] ? Age/Sex: 52 / F ?ADM Date: 08/24/ ? Loc: HO.MAMMO ? Attending Dr: Nilam Hopper MD ? Ordering Physician: Nilam Henry MD ?Results: ?? 1Negative ? Date of Service: 08/24/ ?Follow Up: 1 Year From Orig ?? inal Mammogram ? Procedure(s): MM tomosynthesis screening BI ?? Accession Number(s): [id number] ? cc: Nilam Henry MD ? EXAMINATION: ?? MM SCREENING DIGITAL BREAST TOMOSYNTHESIS, BILATERAL ? CLINICAL INFORMATION: ? Screening. Asymptomatic. ? COMPARISON: ?? Mammography: This study is compared with prior exams dating back to ?? 2019. ? TECHNIQUE: ?? Digital breast tomosynthesis is performed in both the craniocaudal and ?? mediolateral oblique views along with computer-aided detection (CAD). ?? Synthesized 2D images are generated from the tomosynthesis. ? FINDINGS: ?? The breasts are heterogeneously dense, which may obscure small masses ?? (ACR BI-RADS breast composition Category c). ? There are no significant masses, abnormal calcifications, or other ?? abnormalities. ? MM/MM tomosynthesis screening BI ?? IMPRESSION: ?? No mammographic evidence of malignancy. ? ASSESSMENT: ? BI-RADS BI-RADS 1 - Negative ? RECOMMENDATION: ?? Routine annual mammography screening. ? 1 year F/U ? This examination should not preclude the clinical evaluation of a ?? suspicious palpable abnormality. ? This patient's information was entered into a reminder system with a ?? target due date for their next mammogram. ? Dictated By: ?Kandice Mckeon MD ? Signed By: ?<Electronically signed by Kandice Mckeon MD in OV> ? 09/22/23 1640 ? DD/ 1545 ? TD/TT: ? Tape Recording Machine Operator: ? Procedure Note Alisa, Image - 09/22/2023 [facility] [facility] [address] [place] [address] [place] [address] Mammography Report Signed Patient: Venkata Julio MMR#: M [id number] : 1970Acct:[id number] Age/Sex: 52 / FADM Date: 08/25/23 Loc: MAMMO Attending Dr: Nilam Hopper MD Ordering Physician: Nilam Henry MDResults: 1Negative Date of Service: 08/25/23Follow Up: 1 Year From Orig inal Mammogram Procedure(s): MM tomosynthesis screening BI Accession Number(s): [id number] cc: Nilam Henry MD EXAMINATION: MM SCREENING DIGITAL BREAST TOMOSYNTHESIS, BILATERAL CLINICAL INFORMATION: Screening. Asymptomatic. COMPARISON: Mammography: This study is compared with prior exams dating back to 2019. TECHNIQUE: Digital breast tomosynthesis is performed in both the craniocaudal and mediolateral oblique views along with computer-aided detection (CAD). Synthesized 2D images are generated from the tomosynthesis. FINDINGS: The breasts are heterogeneously dense, which may obscure small masses (ACR BI-RADS breast composition Category c). There are no significant masses, abnormal calcifications, or other abnormalities. MM/MM tomosynthesis screening BI IMPRESSION: No mammographic evidence of malignancy. ASSESSMENT: BI-RADS BI-RADS 1 - Negative RECOMMENDATION: Routine annual mammography screening. 1 year F/U This examination should not preclude the clinical evaluation of a suspicious palpable abnormality. This patient's information was entered into a reminder system with a target due date for their next mammogram. Dictated By: Kandice Mckeon MD Signed By: <Electronically signed by Kandice Mckeon MD in OV> 09/22/23 1640 DD/ 1545 TD/TT: Tape Recording Machine Operator: Nilam Hopper MD IMG BI PROCEDURES Fin al Result * (ABNORMAL) Lipid Panel, Standard (07/14/2023 6:44 AM EDT) Triglycerides 85 <150 mg/dL [facility] Comment:Desirable Triglyceri de: less than 150 mg/dLBorderline High Triglyceride 150-199 mg/dLHigh Triglyceride: 200-499 mg/dLVery High Triglyceride: greater than or equal to 5OO mg/dL Cholesterol 171 <200 mg/dL [facility] Comment:Desirable Cholestero l: less than 200 mg/dLBorderline High Cholesterol: 200-239 mg/dLHigh Cholesterol: greater than 239 mg/dL LDL Cholesterol Calculated 102(H) <100 mg/dL [facility] Comment:Desirable LDL: less than 100 mg/dLNear Optimal/Above Optimal LDL: 110- 129 mg/dLBorderline High LDL: 130-159 mg/dLHigh LDL: 160-189 mg/dLVery High LDL: greater than or equal to 190 mg/dL HDL Cholesterol 52 >40 mg/dL [facility] Comment:Desirable HDL: great er than 40 mg/dL Note: This HDL assay may give artificially low results in patients with liver disease. Blood Venous blood specimen / Unknown 07/14/2023 6:44 AM EDT 07/14/2023 6:46 AM EDT Nilam Hopper MD LAB BLOOD ORDERABLES Final Result [facility] [address] [place] [address] [phone] * Pap Smear (09/17/2022) Pap Negative for intraephithelial lesion or malignancy Negative for intraephithelial lesion or malignancy, Other HPV Undetected Undetected, Indeterminate, Quantitative, Not Detected Historical Provider HEALTH MAINTENANCE Final Result from Last 3 Months or Most Recently Relevant to Health Maintenance Insurance [facility] , [address] [place] [address] [place] [phone] * Guarantor: Venkata Julio Account Type Relation to Patient Date of Phone Billing Address Personal/Family Self [address] Care Teams Labor Service Representative Relationship Specialty Start Date End Date Nilam Henry MD [address] [place] [id number] PCP - General Family Medicine 02/26/19
--- OUTSIDE RECORDS SUMMARY | 2024-05-13 19:39 | XMS_ITS | Continuity of Care Document ---
Author Organization [place] - [facility], Allergy Address [address] [place] [address] Care Team Providers Care Corn Cutter Operator Name Role Phone SHIRADarlin SINCERE ELY Primary Care Provider [phone] Assessment Encounter Date Assessment Date Assessment LastModified by Organization Details LastModified Time 04/23/2024 04/23/2024 Visit With: KM Bradley Use of Antihistamine s: Yes If yes: Vial Test Change in medications: No If yes ? ? ? Increase in asthma symptoms If yes, inhaler use: Reaction to last injections: No If yes: ? ? ? Allergy Symptoms: Other: ? ? ? Missed: Dose Aware of Vial Test Notes:? ? ? [email or web address] Not available 04/23/2024 10:51:57 Plan of Treatment Reminders Order Date Submit Date Provider Last Modified By Organization Details Last Modified Time Details Appointments [facility]- Allergy f-up 6mon 2024 09:30A M EMILI MILES MD Not available Not available Not available Lab None recorded . Referral None recorded . Procedures None recorded . Surgeries None recorded . Imaging None recorded . Medication Orders None recorded . Patient TargetsNo targets recorded. Patient InstructionsNo instructions recorded. Reason for Referral None Reported. Problems Name Problem SNOMED Code Status Onset Date Resolution Date Notes Provider Name and Address Organization Details Recorded Time Nasal congestion 71823448 Active 2023 EMILI MILES MD [address] [place] [address], [phone] [place] - [facility] 4 14:36:00 Allergic rhinitis 56487698 Active 2023 EMILI MILES MD [address] [place] [address] 100, [place], [address], [place] [facility] [place] 4 14:36:09 Mild intermittent asthma 257499214 Active 2023 EMILI MILES MD 100 [facility] [place], [place], [address], [place] [facility] [place] 4 14:36:25 Chronic rhinitis 96349693 Active 2023 EMILI MILES MD 100 [facility],[address], [place], [address], [place] [facility] [place] 4 08:53:38 Perennial allergic rhinitis 692175998 Active 2023 ALMA AHN, [facility] [address] [facility] [place], [place], [address], [place] [facility] [place] 4 09:37:53 Problem Notes None recorded. Procedures Surgical History Date Name Laterality Status Provider Name and Address Organization Details Recorded Time 05/07/19 25 Allergy Immunotherapy Injections completed BECCA EVANS RN 100 [facility],[address], [address], [facility] - [facility] [place] 05/07/2024 11:12:00 04/27/19 25 Allergy Immunotherapy Injections completed BECCA EVANS RN 100 [facility],[address], [address], [facility] - [facility] [place] 04/27/2024 13:26:05 04/23/19 25 Allergy Immunotherapy Injections completed ALMA AHN [facility] [address] [facility] [place] [address], [place], [address], [facility] - [facility] [place] 04/23/2024 10:51:49 04/16/19 25 Allergy Immunotherapy Injections completed ALMA AHN A [address],[place] [address], [place], [address], [facility] - [facility] [place] 04/16/2024 12:50:47 04/09/19 25 Allergy Immunotherapy Injections completed BECCA EVANS RN [address] [address], [place], [address], [place] [facility] [place] 04/09/2024 09:50:33 04/02/19 25 Allergy Immunotherapy Injections completed BECCA EVANS RN [address],[place] [address], [place], [address], [place] [facility] [place] 04/02/2024 10:46:40 03/26/19 25 Allergy Immunotherapy Injections completed ALMA AHN, RMA [address],[place] [address], [place], [address], [place] [facility] [place] 03/26/2024 10:16:19 03/16/19 25 Allergy Immunotherapy Injections completed MAMIE ACEA [address],[place] [address], [place], [address], [place] [facility] [place] 03/16/2024 12:04:12 03/09/20 24 Allergy Immunotherapy Injections completed KM ACE [address],[place] [address] [place] [address], [address], [place] [facility] 03/09/2024 10:26:16 03/02/20 24 Allergy Immunotherapy Injections completed MAMIE ACEA [address],[place] [address] [place] [address], [address], [facility] - [facility] [place] 03/02/2024 12:04:34 02/24/20 24 Allergy Immunotherapy Injections completed ALMA AHN, RMA [address],[place] [address], [place], [address], [facility] - [facility] 02/24/2024 11:20:06 02/16/20 24 Allergy Immunotherapy Injections completed ALMA AHN, RMA [address],[place] [address] [place] [address], [address], [place] [facility] [place] 02/16/2024 09:38:03 01/02/20 24 Allergy Testing-Full completed ALMA AHN, RMA [address],[place] [address], [place], [address], [place] [facility] 01/02/2024 14:13:04 12/05/19 24 JMSNasal/Sinus Endoscopy completed EMILI ELMORE MD 100 [facility],[place] [address], [place], [address], [facility] - [facility] 12/05/2023 14:35:53 Imaging Results None recorded. Procedure Notes None recorded. Medical Equipment None Reported. Allergies No known drug allergies Medications Name Sig Start Date Stop Date Status Note LastModified by Organization Details LastModified Time amoxicillin 500 mg capsule TAKE 1 CAPSULE BY MOUTH 3 TIMES A DAY FOR 7 DAYS 12/04 completed Not Available Not Available Not Available trazodone 50 mg tablet TAKE 1 TABLET BY MOUTH EVERY DAY AT BEDTIME NEEDED FOR SLEEP active Not Available Not Available No t Available amlodipine 2.5 mg tablet TAKE 1 TABLET BY MOUTH EVERY DAY active Not Available Not Available No t Available montelukast 10 mg tablet TAKE 1 TABLET BY MOUTH EVERY DAY active Not Available Not Available No t Available hydrochloro thiazide 25 mg tablet TAKE 1 TABLET BY MOUTH EVERY DAY IN THE MORNING active Not Available Not Available No t Available azelastine 137 mcg (0.1 %) nasal spray [place] 2 sprays twice a day by intranasa l route for 30 days. active Not Available Not Available No t Available epinephrine 0.3 mg/0.3 mL injection, auto-inject or Take 1 auto by injection route for 180 days, for anaphylax is. active Not Available Not Available No t Available loratadine 10 mg tablet TAKE 1 TABLET BY MOUTH DAILY IN THE MORNING active Not Available Not Available No t Available buspirone 15 mg tablet TAKE 1 TABLET BY MOUTH TWICE A DAY active Not Available Not Available No t Available chlorhexidi ne gluconate 0.12 % mouthwash SWISH AND SPIT 15 ML'S BY MOUTH FOR ABOUT A MINUTE THEN SPIT TWICE A DAY active Not Available Not Available No t Available Paxlovid 300 mg (150 mg x 2)-100 mg tablets in a dose pack TAKE 3 TABLETS BY MOUTH TWICE DAILY DIRECTED ON BOX FOR 5 DAYS 12/04 completed Not Available Not Available Not Available Vitals None Recorded Social History None recorded. Functional Status None recorded. Mental Status None recorded. Family History Nothing Reported. Medical History Condition Response Allergies/Hayfever Y Heart Problems N Anxiety Y Tonsil Infections N Emphysema N Migraines N Thyroid Problems N Glaucoma N Depression Y COPD N Developmental Delay N Nasal or Sinus Problems Y Anemia N Immune System Disorder N Anesthesia Complications N Heart Attack ([place]) N Other Skin Condition N Diabetes N Rhinitis N Bleeding Disorder N Food Allergy N Arthritis N Hearing Loss N Hyperlipidemia N Cancer N Stroke N Dementia N Nasal polyps N Asthma Y Sleep Disorder Y GERD/Reflux N High Cholesterol Y Liver Disease N Headaches Y Fibromyalgia N Hypertension Y Speech Delay N Kidney Disease N Gynecological HistoryNo gynecological history recorded. Obstetrics History GPAL:G 0 P 0 0 0 0 Past Encounters Encounter ID Performer Location Encounter Start Date Encounter Closed Date Diagnosis/Indication Diagnosis SNOMED-CT Code Diagnosis ICD10 Code Diagnosis Note [id number] KM BRADLEY Allergy [address] [place] [address],[place] [address] [place] [address] 03/26/2024 10:15:02 03/26/2024 10:17:04 Perennial allergic rhinitis 084827275 J30.89 Patient presents to begin immunother apy injections . Reviewed injection hours, importance of compliance and of reporting any changes in medication s. Also reviewed importance of reporting any local reactions to immunother apy injections . For patients of child bearing age, reviewed importance of reporting . Follow up with MD made in 6 months. [id number] BECCA EVANS RN Allergy [address] [place] [address], [address] [place] [address] 04/02/2024 10:45:59 04/02/2024 11:00:20 Perennial allergic rhinitis [id number] J30.89 [id number] BECCA EVANS RN Allergy [address] [place] [address],[place] [address] [place] [address] 04/09/2024 09:47:25 04/09/2024 09:51:32 Perennial allergic rhinitis [id number] J30.89 [id number] KM BRADLEY All[facility] [address] [place] [address],[place] [address] [place] [address] 04/16/2024 12:49:55 04/16/2024 12:51:18 Perennial allergic rhinitis 113567429 J30.89 Patient presents to begin immunother apy injections . Reviewed injection hours, importance of compliance and of reporting any changes in medication s. Also reviewed importance of reporting any local reactions to immunother apy injections . For patients of child bearing age, reviewed importance of reporting . Follow up with MD made in 6 months. [id number] KM BRADLEY Allergy 100 [facility] 100 [facility] [place] [address] 04/23/2024 10:51:04 04/23/2024 11:09:05 Perennial allergic rhinitis 870972960 J30.89 Patient presents to begin immunother apy injections . Reviewed injection hours, importance of compliance and of reporting any changes in medication s. Also reviewed importance of reporting any local reactions to immunother apy injections . For patients of child bearing age, reviewed importance of reporting . Follow up with MD made in 6 months. Health Concerns Section Related Observation LastModified by Organization Detai ls LastModified Time None Recorded Concern Status LastModified by Organization Details LastModified Time None Recorded Payers Encounter Date Sequence Insurance Name Policy Number Policy Pardo Covered Member ID Pardo Member ID Guarantor Name 04/23/2024 1 [place] Venkata Fabian [id number] Venkata Melara 04/23/2024 2 [place] [facility] (MEDICAID) Venkata Fabian [id number] Venkata Melara OBGyn Episode No OBEpisode recorded.
--- OUTSIDE RECORDS SUMMARY | 2024-05-13 19:40 | XMS_ITS | Encounter Summary ---
Author Organization [employer] Address [address] [place] [address] Care Team Providers Care Test Bore Helper Name Role Phone Nilam Henry MD Primary Care Provide r Encounter Details Date Type Department Care Team (Late st Contact Info) Description 02/05/2023 Abstract [facility] [address] [place] [address] Nilam Henry MD [address] [place] [address] Social History Tobacco Use Types Packs/Day Years Used Date Smoking Tobacco: Never Passive Smoke Exposure: Never Smokeless Tobacco: Never Alcohol Use Standard Drinks/Week Comments Never 0 (1 standard drink = 0.6 oz pur e alcohol) Depression Answer Date Recorded Patient Health Questionnaire-9 Score 0 07/19/2022 Housing Stability Answer Date Recorded What is your housing situation today? I have anjalichato rehman 01/01/[address] you li ve. Do you have problems with any of the following? None of the above 01/01/2023 Food Insecurity Answer Date Recorded Within the past 12 months, y ou worried that your food would run out before you got money to buy more: Never True 01/01/2023 Within the past 12 months,th e food you bought just didn't last and you didn't have enough money to get more: Never True Transportation Answer Date Recorded In the past 12 months, has l ack of transportation kept you from medical appts, meetings, work or from getting things needed for daily living? No 01/01/2023 Utilities Answer Date Recorded In the past 12 months, has t he electric, gas, oil or water company threatened to shut off services in your home? No 01/01/2023 Depression Answer Date Recorded Patient Health Questionnaire-2 Score 0 07/19/2022 Comments Unknown Sex and Gender Information Value Date Recorded Sex Assigned at Female 01/07/2022 10:33 AM EDT Legal Sex Female 10:33 AM EDT Gender Identity Female 01/07/2022 10:33 AM EDT Sexual Orientation Straight 01/07/2022 10 :33 AM EDT documented as of this encounter Plan of Treatment Not on file documented as of this encounter Procedures Procedure Name Priority Date/Time Associated Diagnosis Comments PAP/HPV Routine 09/17/2022 documented in this encounter Results * Pap Smear (09/17/2022) Pap Negative for intraephithelial lesion or malignancy Negative for intraephithelial lesion or malignancy, Other HPV Undetected Undetected, Indeterminate, Quantitative, Not Detected us Historical Provider HEALTH MAINTENANCE Final Result documented in this encounter Visit Diagnoses Not on filedocumented in this encounter Additional Health Concerns Assessment Noted Time PHQ-9 Depression Total Score: 0 07/20/19 23 11:28 AM EDT documented as of this encounter Care Teams Test Bore Helper Relationship Specialty Start Date End Date Nilam Henry MD [address] [place] [address] PCP - General Family Medicine 02/26/19 documented as of this encounter
--- OUTSIDE RECORDS SUMMARY | 2024-05-13 19:40 | XMS_ITS | Encounter Summary ---
Author Organization [employer] Address [address] [place] [address] Care Team Providers Care Heel Coverer Name Role Phone Nilam Henry MD Primary Care Provide r Encounter Details Date Type Department Care Team (Latest Contact Info) Description 10/30/2018 Abstract [facility] CONVERSIONS Dental, Provider, DDS Social History Tobacco Use Types Packs/Day Years Used Date Smoking Tobacco: Never Assessed Comments Unknown Sex and Gender Information Value Date Recorded Sex Assigned at Female 01/07/2022 10:33 AM EDT Legal Sex Female 10:33 AM EDT Gender Identity Female 01/07/2022 10:33 AM EDT Sexual Orientation Straight 01/07/2022 10 :33 AM EDT documented as of this encounter Plan of Treatment Not on file documented as of this encounter Visit Diagnoses Not on filedocumented in this encounter Care Teams Heel Coverer Relationship Specialty Start Date End Date Nilam Henry MD [address] [place] [address] PCP - General Family Medicine 02/26/19 documented as of this encounter
--- OUTSIDE RECORDS SUMMARY | 2024-05-13 19:40 | XMS_ITS | Continuity of Care Document ---
Author Organization [place] - [facility], Allergy Address [address] [place] [address] Care Team Providers Care Exercise Equipment Repair Technician Name Role Phone ELSIE ELYSINCERE Primary Care Provider Assessment Encounter Date Assessment Date Assessment LastModified by Organization Details LastModified Time 04/27/2024 04/27/2024 Visit With: Becca Evans RN Use of Antihistamine s: Yes If yes: Vial Test Change in medications: No If yes ? ? ? Increase in asthma symptoms No If yes, inhaler use: Reaction to last injections: No If yes: ? ? ? Allergy Symptoms: Other: ? ? ? Missed: Dose Aware of Vial Test Notes:? ? ? [email or web address] Not available 04/27/2024 13:26:19 Plan of Treatment Reminders Order Date Submit Date Provider Last Modified By Organization Details Last Modified Time Details Appointments [facility]- Allergy f-up 6mon 2024 09:30A M EMILI [...] Address Organization Details Recorded Time Nasal congestion 24932776 Active 2023 EMILI MILES MD [address] [place] [address], [address] [place] [facility] 4 14:36:00 Allergic rhinitis 77898136 Active 2023 EMILI MILES MD [address] [place] [address] 100, [place], [address], [place] [facility] [place] 4 14:36:09 Mild intermittent asthma 349569425 Active 2023 EMILI MILES MD 100 [facility],[address], [place], [address], [place] [facility] [place] 4 14:36:25 Chronic rhinitis 58911340 Active 2023 EMILI MILES MD 100 [facility],[address], [place], [address], [place] [facility] [place] 4 08:53:38 Perennial allergic rhinitis 852517766 Active 2023 ALMA AHN, [facility] [address] [facility] [place],[address], [place], [address], [place] [facility] [place] 4 09:37:53 Problem Notes None recorded. Procedures Surgical History Date Name Laterality Status Provider Name and Address Organization Details Recorded Time 05/07/19 25 Allergy Immunotherapy Injections completed BECCA EVANS RN 100 [facility],[address], [address], [facility] - [facility] [place] 05/07/2024 11:12:00 04/27/19 25 Allergy Immunotherapy Injections completed BECCA EVANS RN 100 [facility],[address], [address], [facility] - [facility] [place] 04/27/2024 13:26:05 04/23/19 25 Allergy Immunotherapy Injections completed ALMA AHN [facility] 100 [facility],[place] [address], [place], [address], [facility] - [facility] [place] 04/23/2024 10:51:49 04/16/19 25 Allergy Immunotherapy Injections completed ALMA AHN A [address],[place] [address], [place], [address], [facility] - [facility] [place] 04/16/2024 12:50:47 04/09/19 25 Allergy Immunotherapy Injections completed BECCA EVANS RN [address], [place], [address], [place] [facility] [place] 04/09/2024 09:50:33 04/02/19 25 Allergy Immunotherapy Injections completed BECCA EVANS RN [address],[place] [address], [place], [address], [place] [facility] [place] 04/02/2024 10:46:40 03/26/19 25 Allergy Immunotherapy Injections completed ALMA AHN, RMA [address],[place] [address], [place], [address], [place] [facility] [place] 03/26/2024 10:16:19 03/16/19 25 Allergy Immunotherapy Injections completed MAMIE ACEA [address],[place] [address], [place], [address], [place] [facility] [place] 03/16/2024 12:04:12 03/09/20 24 Allergy Immunotherapy Injections completed KM ACE [address],[place] [address] [place] [address], [address], [place] [facility] 03/09/2024 10:26:16 03/02/20 24 Allergy Immunotherapy Injections completed MAMIE ACEA [address],[place] [address] [place] [address], [address], [facility] - [facility] [place] 03/02/2024 12:04:34 02/24/20 24 Allergy Immunotherapy Injections completed ALMA AHN, RMA [address],[place] [address], [place], [address], [facility] - [facility] 02/24/2024 11:20:06 02/16/20 24 Allergy Immunotherapy Injections completed ALMA AHN, RMA [address],[place] [address] [place] [address], [address], [place] [facility] [place] 02/16/2024 09:38:03 01/02/20 24 Allergy Testing-Full completed ALMA AHN, RMA [address],[place] [address], [place], [address], [place] [facility] 01/02/2024 14:13:04 12/05/19 24 JMSNasal/Sinus Endoscopy completed EMILI ELMORE MD 100 [facility],[place] [address], [place], [address], [facility] - [facility] 12/05/2023 14:35:53 Imaging Results None recorded. [...] azelastine 137 mcg (0.1 %) nasal spray [place] 2 sprays twice a day by intranasa [...] Disorder N Anesthesia Complications N Heart Attack ([place]) N Other Skin Condition N Diabetes N Rhinitis N Bleeding Disorder N Food Allergy N Arthritis N Hearing Loss N Hyperlipidemia N Cancer N Stroke N Dementia N Nasal polyps N Asthma Y High Cholesterol Y Sleep Disorder Y GERD/Reflux N Liver Disease N Headaches Y Fibromyalgia N Hypertension Y Speech Delay N Kidney Disease N Gynecological HistoryNo gynecological history recorded. Obstetrics History GPAL:G 0 P 0 0 0 0 Past Encounters Encounter ID Performer Location Encounter Start Date Encounter Closed Date Diagnosis/Indication Diagnosis SNOMED-CT Code Diagnosis ICD10 Code Diagnosis Note [id number] BECCA EVANS RN Allergy [address] [place] [address],[place] [address] [place] [address] 04/02/2024 10:45:59 04/02/2024 11:00:20 Perennial allergic rhinitis [id number] J30.89 [id number] BECCA EVANS RN Allergy [address] [place] [address],[place] [address] [place] [address] 04/09/2024 09:47:25 04/09/2024 09:51:32 Perennial allergic rhinitis [id number] J30.89 [id number] ALMA PAPPAS, [facility] Allergy [address] [place] [address],[place] [address] [place] [address] 04/16/2024 12:49:55 04/16/2024 12:51:18 Perennial allergic rhinitis 605443875 J30.89 Patient presents to begin immunother apy injections . Reviewed injection hours, importance of compliance and of reporting any changes in medication s. Also reviewed importance of reporting any local reactions to immunother apy injections . For patients of child bearing age, reviewed importance of reporting . Follow up with MD made in 6 months. [id number] ALMA PAPPAS, [facility] Allergy [address] [place] [address],[place] [address] [place] [address] 04/23/2024 10:51:04 04/23/2024 11:09:05 Perennial allergic rhinitis 124445435 J30.89 Patient presents to begin immunother apy injections . Reviewed injection hours, importance of compliance and of reporting any changes in medication s. Also reviewed importance of reporting any local reactions to immunother apy injections . For patients of child bearing age, reviewed importance of reporting . Follow up with MD made in 6 months. [id number] BECCA EVANS RN Allergy 100 [facility] 100 [facility] [place] [address] 04/27/2024 13:25:28 04/27/2024 13:26:35 Perennial allergic rhinitis 170388578 J30.89 Health Concerns Section Related Observation LastModified by Organization Detai ls LastModified Time None Recorded Concern Status LastModified by Organization Details LastModified Time None Recorded Payers Encounter Date Sequence Insurance Name Policy Number Policy Pardo Covered Member ID Pardo Member ID Guarantor Name 04/27/2024 1 [place] [facility] Venkata Fabian [id number] Venkata Melara 04/27/2024 2 [place] [facility] (MEDICAID) Venkata Fabian [id number] Venkata Melara OBGyn Episode No OBEpisode recorded.
--- OUTSIDE RECORDS SUMMARY | 2024-05-13 19:40 | XMS_ITS | Continuity of Care Document ---
Author Organization [place] - [facility], Allergy Address [address] [place] [address] Care Team Providers Care Construction Representative Name Role Phone SINCERE VALLE Primary Care Provider [phone] Assessment Encounter Date Assessment Date Assessment LastModified by Organization Details LastModified Time 04/16/2024 04/16/2024 Visit With: KM Bradley Use of Antihistamine s: Yes If yes: Vial Test Change in medications: No If yes ? ? ? Increase in asthma symptoms If yes, inhaler use: Reaction to last injections: No If yes: ? ? ? Allergy Symptoms: Other: ? ? ? Missed: Dose Aware of Vial Test Notes:? ? ? [email or web address] Not available 04/16/2024 12:50:56 Plan of Treatment Reminders Order Date Submit Date Provider Last Modified By Organization Details Last Modified Time Details Appointments [facility]- Allergy f-up 6mon 2024 09:30A M EMILI [...] Address Organization Details Recorded Time Nasal congestion 10372805 Active 2023 EMILI MILES MD [address] [place] [address], [address] [facility] [place] - [facility] 14:36:00 Allergic rhinitis 90899997 Active 2023 EMILI MILES MD [address] [place] [address] 100, [place], [address], [place] - [facility] [place] 4 14:36:09 Mild intermittent asthma 477103880 Active 2023 EMILI MILES MD [address] [facility], [place], [address], [place] [facility] [place] 4 14:36:25 Chronic rhinitis 84471669 Active 2023 EMILI MILES MD 100 [facility],[address], [place], [address], [place] [facility] [place] 4 08:53:38 Perennial allergic rhinitis 720758625 Active 2023 ALMA AHN, [facility] [address] [facility], [place], [address], [place] [facility] [place] 4 09:37:53 Problem Notes None recorded. Procedures Surgical History Date Name Laterality Status Provider Name and Address Organization Details Recorded Time 05/07/19 25 Allergy Immunotherapy Injections completed BECCA EVANS RN 100 [facility],[address], [address], [facility] - [facility] [place] 05/07/2024 11:12:00 04/27/19 25 Allergy Immunotherapy Injections completed BECCA EVANS RN 100 [facility],[address], [address], [facility] - [facility] [place] 04/27/2024 13:26:05 04/23/19 25 Allergy Immunotherapy Injections completed ALMA AHN [facility] [address] [facility],[place] [address], [place], [address], [facility] - [facility] [place] 04/23/2024 10:51:49 04/16/19 25 Allergy Immunotherapy Injections completed ALMA AHN A [address],[place] [address], [place], [address], [facility] - [facility] [place] 04/16/2024 12:50:47 04/09/19 25 Allergy Immunotherapy Injections completed BECCA EVANS RN [address] [address], [place], [address], [place] [facility] 04/09/2024 09:50:33 04/02/19 25 Allergy Immunotherapy Injections completed BECCA EVANS RN [address],[place] [address], [place], [address], [place] [facility] 04/02/2024 10:46:40 03/26/19 25 Allergy Immunotherapy Injections completed ALMA AHN, RMA [address],[place] [address], [place], [address], [place] [facility] 03/26/2024 10:16:19 03/16/19 25 Allergy Immunotherapy Injections completed MAMIE ACEA [address],[place] [address], [place], [address], [place] [facility] 03/16/2024 12:04:12 03/09/20 24 Allergy Immunotherapy Injections completed KM ACE [address],[place] [address] [place] [address], [address], [place] [facility] 03/09/2024 10:26:16 03/02/20 24 Allergy Immunotherapy Injections completed MAMIE ACEA [address],[place] [address] [place] [address], [address], [facility] - [facility] [place] 03/02/2024 12:04:34 02/24/20 24 Allergy Immunotherapy Injections completed ALMA AHN, RMA [address],[place] [address], [place], [address], [facility] - [facility] 02/24/2024 11:20:06 02/16/20 24 Allergy Immunotherapy Injections completed ALMA AHN, RMA [address],[place] [address] [place] [address], [address], [place] [facility] 02/16/2024 09:38:03 01/02/20 24 Allergy Testing-Full completed ALMA AHN, RMA [address],[place] [address], [place], [address], [place] [facility] 01/02/2024 14:13:04 12/05/19 24 JMSNasal/Sinus Endoscopy completed EMILI ELMORE MD 100 [facility],[place] [address], [place], [address], [facility] - [facility] 12/05/2023 14:35:53 Imaging Results None recorded. [...] azelastine 137 mcg (0.1 %) nasal spray [place] 2 sprays twice a day by intranasa [...] Migraines N Thyroid Problems N Glaucoma N Developmental Delay N Depression Y COPD N Nasal or Sinus Problems Y Anemia N Immune System Disorder N Anesthesia Complications N Heart Attack ([place]) N Other Skin Condition N Diabetes N Rhinitis N Bleeding Disorder N Food Allergy N Hearing Loss N Arthritis N Hyperlipidemia N Cancer N Stroke N Dementia N Nasal polyps N Asthma Y Sleep Disorder Y High Cholesterol Y GERD/Reflux N Liver Disease N Headaches Y Fibromyalgia N Hypertension Y Speech Delay N Kidney Disease N Gynecological HistoryNo gynecological history recorded. Obstetrics History GPAL:G 0 P 0 0 0 0 Past Encounters Encounter ID Performer Location Encounter Start Date Encounter Closed Date Diagnosis/Indication Diagnosis SNOMED-CT Code Diagnosis ICD10 Code Diagnosis Note [id number] MARITA HARTLEY [facility] Allergy [address] [place] [address] 100 [facility] [place] [address] 03/16/2024 12:03:10 03/16/2024 12:04:45 Perennial allergic rhinitis 588978810 J30.89 [id number] ALMA PAPPAS [facility] Allergy [address] [place] [address] 100 [facility] [place] [address] 03/26/2024 10:15:02 03/26/2024 10:17:04 Perennial allergic rhinitis 510720104 J30.89 Patient presents to begin immunother apy injections . Reviewed injection hours, importance of compliance and of reporting any changes in medication s. Also reviewed importance of reporting any local reactions to immunother apy injections . For patients of child bearing age, reviewed importance of reporting . Follow up with MD made in 6 months. [id number] BECCA EVANS RN Allergy [address] [place] [address] 100 [facility] [place] [address] 04/02/2024 10:45:59 04/02/2024 11:00:20 Perennial allergic rhinitis 169796536 J30.89 [id number] BECCA EVANS RN Allergy [address] [place] [address] 100 [facility] [place] [address] 04/09/2024 09:47:25 04/09/2024 09:51:32 Perennial allergic rhinitis 394789276 J30.89 [id number] ALMA PAPPAS [facility] Allergy [address] [place] [address], it 100 [facility] [place] [address] 04/16/2024 12:49:55 04/16/2024 12:51:18 Perennial allergic rhinitis 031372607 J30.89 Patient presents to begin immunother apy [...] Member ID Pardo Member ID Guarantor Name 04/16/2024 1 [place] [facility] Venkata Fabian [id number] Venkata Melara 04/16/2024 2 [place] [facility] (MEDICAID) Venkata Fabian [id number] Venkata Melara OBGyn Episode No OBEpisode recorded.
--- OUTSIDE RECORDS SUMMARY | 2024-05-13 19:40 | XMS_ITS | Encounter Summary ---
Author Organization [employer] Address [address] [place] [address] Care Team Providers Care Licensed Electrician Name Role Phone Nilam Henry MD Primary Care Provide r Reason for Visit * Reason Comments Med Refill Encounter Details Date Type Department Care Team (Late st Contact Info) Description 07/15/2023 Refill [facility] MEDICINE [address] [place] [address] Nilam Henry MD [address] [place] [address] Essential hypertension Social History Tobacco Use Types [...] documented as of this encounter Care Teams Licensed Electrician Relationship Specialty Start Date End Date Nilam Henry MD [address] [place] [address] PCP - General Family Medicine 02/26/19 documented as of this encounter
--- OUTSIDE RECORDS SUMMARY | 2024-05-13 19:40 | XMS_ITS | Data Portability ---
Author Organization [place] - [facility], Allergy Address [address] [place] [address] Care Team Providers Care City Carrier Assistant Name Role Phone SINCERE VALLE Primary Care Provider Assessment Encounter Date Assessment Date Assessment LastModified by Organization Details LastModified Time 04/09/2024 04/09/2024 Visit With: Becca Evans RN Use of Antihistamine s: Yes If yes: Daily Vial Test Change in medications: No If yes ? ? ? Increase in asthma symptoms No If yes, inhaler use: Reaction to last injections: Yes If yes: ? ? ?R lower 10mm Allergy Symptoms: Other: ? ? ? Missed: Dose Decreased Aware of Vial Test Notes:? ? ? [email or web address] Not available 04/09/2024 09:51:10 04/16/2024 04/16/2024 Visit With: KM Bradley Use of Antihistamine s: Yes If yes: Vial Test Change in medications: No If yes ? ? ? Increase in asthma symptoms If yes, inhaler use: Reaction to last injections: No If yes: ? ? ? Allergy Symptoms: Other: ? ? ? Missed: Dose Aware of Vial Test Notes:? ? ? greg Not available 04/16/2024 12:50:56 04/23/2024 04/23/2024 Visit With: KM Bradley Use of Antihistamine s: Yes If yes: Vial Test Change in medications: No If yes ? ? ? Increase in asthma symptoms If yes, inhaler use: Reaction to last injections: No If yes: ? ? ? Allergy Symptoms: Other: ? ? ? Missed: Dose Aware of Vial Test Notes:? ? ? greg Not available 04/23/2024 10:51:57 04/27/2024 04/27/2024 Visit With: Becca Evans RN [...] ? ? [email or web address] Not available 04/27/2024 13:26:19 05/07/2024 05/07/2024 Visit With: KM Bradley Use of Antihistamine s: Yes If yes: Vial Test Change in medications: No If yes ? ? ? Increase in asthma symptoms No If yes, inhaler use: Reaction to last injections: No If yes: ? ? ? Allergy Symptoms: Other: ? ? ? Missed: Dose Aware of Vial Test Notes:? ? ? [email or web address] Not available 05/07/2024 11:12:11 Plan of Treatment Reminders Order Date Submit Date Provider Last Modified By Organization Details Last Modified Time Details Appointments [facility] Allergy f-up 6mon 2024 09:30A M EMILI [...] Address Organization Details Recorded Time Nasal congestion 39665608 Active 2023 EMILI MILES MD [address] [place] [address], [place], [address], [facility] - [facility] [place] 4 14:36:00 Allergic rhinitis 69995813 Active 2023 EMILI MILES MD [address] [place] [address], [place], [address], [facility] - [facility] 4 14:36:09 Mild intermittent asthma 399868674 Active 2023 EMILI MILES MD [address] [place] [address], [place], [address], [facility] - [facility] [place] 4 14:36:25 Chronic rhinitis 67690167 Active 2023 EMILI MILES MD 100 [facility], [address], [place], [address], [facility] - [facility] [place] 4 08:53:38 Perennial allergic rhinitis 062076054 Active 2023 [facility], [facility] 100 [facility], [address], [place], [address], [facility] - [facility] [place] 09:37:53 Problem Notes None recorded. Procedures Surgical History Date Name Laterality Status Provider Name and Address Organization Details Recorded Time 05/07/19 25 Allergy Immunotherapy Injections completed BECCA EVANS RN 100 [facility],[address], [address], [facility] - [facility] [place] 05/07/2024 11:12:00 04/27/19 25 Allergy Immunotherapy Injections completed BECCA EVANS RN 100 [facility],[address], [address], [facility] - [facility] [place] 04/27/2024 13:26:05 04/23/19 25 Allergy Immunotherapy Injections completed ALMA AHN, [facility] 100 [facility] [place],[address], [address], [facility] - [facility] [place] 04/23/2024 10:51:49 04/16/19 25 Allergy Immunotherapy Injections completed ALMA AHN [facility] 100 [facility],[address], [address], [facility] - [facility] [place] 04/16/2024 12:50:47 04/09/19 25 Allergy Immunotherapy Injections completed BECCA EVANS RN 100 [facility],[address], [address], [facility] - [facility] [place] 04/09/2024 09:50:33 04/02/19 25 Allergy Immunotherapy Injections completed BECCA EVANS RN 100 [facility],[address], [address], [place] - [facility] [place] [facility] 04/02/2024 10:46:40 03/26/19 25 Allergy Immunotherapy Injections completed ALMA ANABELLE, RMA [address],[place] [address] [place] [address], [address], [facility] - [facility] 03/26/2024 10:16:19 03/16/19 25 Allergy Immunotherapy Injections completed MARITA HARTLEY RMA [address],[place] [address], [place], [address], [place] [facility] 03/16/2024 12:04:12 03/09/20 24 Allergy Immunotherapy Injections completed MARITA HARTLEY RMA 100 [facility] [address], [place], [address], [place] [facility] 03/09/2024 10:26:16 03/02/20 24 Allergy Immunotherapy Injections completed MARITA HARTLEY RMA 100 [facility],[place] [address] [place] [address], [address], [facility] - [facility] 03/02/2024 12:04:34 02/24/20 24 Allergy Immunotherapy Injections completed ALMA ELYSEC, RMA 100 [facility],[place] [address] [place] [address], [address], [facility] - [facility] 02/24/2024 11:20:06 02/16/20 24 Allergy Immunotherapy Injections completed ALMA FREYJOLENEC, RMA 100 [facility] [address],[place] [address] [place] [address], [address], [facility] - [facility] 02/16/2024 09:38:03 01/02/20 Allergy Testing-Full completed ALMA ELYSEC, RMA 100 [facility],[place] [address] [place] [address], [address], [facility] - [facility] 01/02/2024 14:13:04 12/05/19 JMSNasal/Sinus Endoscopy completed EMILI ELMORE MD [address],[place] [address] [place] [address], [address], [facility] - [facility] 12/05/2023 14:35:53 Imaging Results None recorded. Procedure [...] azelastine 137 mcg (0.1 %) nasal spray [place] 2 sprays twice a day by intranasa [...] Disorder N Anesthesia Complications N Heart Attack ([place]) N Other Skin Condition N Diabetes N [...] SNOMED-CT Code Diagnosis ICD10 Code Diagnosis Note [id number] EMILI MENEZES MD [facility] 100 [place] [address] 12/05/2023 13:55:58 12/05/2023 14:57:50 Nasal congestion 28008954 R09.81 Allergic rhinitis 465319 04 J30.9 Mild inter mittent asthma 511725767 J45.20 [id number] [facility] Allergy [address] [place] [address],[facility] 100 [place] [address] 12/05/2023 14:39:15 12/05/2023 15:38:00 Mild intermittent asthma 861198444 J45.20 [id number] [facility], [facility] Allergy [address] [place] [address],[facility] 100 [place] [address] 01/02/2024 12:55:00 01/02/2024 14:16:16 Allergic rhinitis 62504384 J30.9 [id number] EMILI MENEZES MD [facility] 100 [place] [address] 01/30/2024 08:27:23 01/30/2024 08:56:28 Allergic rhinitis 48504952 J30.89 We discussed that given the significan t environmen yonny exposures at home with the And her severe cat allergy, I would strongly recommend considerat ion for immunother apy. We discussed there is a risk of reactions from the injections and that this is a long-term process. I do also consider starting with the addition of Astelin nasal spray. I think the risk of nasal steroids is quite small but we can add that as a last resort. We also discussed the role of immunother apy. I explained that this is instituted for the most significan t of allergies and involves the introducti on of increasing ly graduated dosages of the appropriat e allergens by subcutaneo us injection to facilitate tolerance. I explained about the likelihood of some improvemen t usually within a three to six month time period provided that the patient is compliant with therapy. It may take substantia lly longer for patients with severe allergy. We spoke about the duration of therapy, which typically lasts from three to five years though at times can be indefinite . We also discussed the risk of anaphylaxi s with therapy. Use of an Epipen discussed. Nasal congestion 2467241 0 R09.81 Chronic rhinitis 7445546 6 J31.0 [id number] ALMA AHN A Allergy 100 [facility],[place] [address] [place], [place] [address] 02/16/2024 09:25:53 02/16/2024 09:39:29 Perennial allergic rhinitis 647149871 J30.89 Patient presents to begin immunother apy injections . Reviewed injection hours, importance of compliance and of reporting any changes in medication s. Also reviewed importance of reporting any local reactions to immunother apy injections . For patients of child bearing age, reviewed importance of reporting . Follow up with MD made in 6 months. [id number] ALMA PAPPAS [facility] Allergy [address] [place] [address], [address] [place] [address] 02/24/2024 11:19:07 02/24/2024 11:20:43 Perennial allergic rhinitis 091809895 J30.89 Patient presents to begin immunother apy injections . Reviewed injection hours, importance of compliance and of reporting any changes in medication s. Also reviewed importance of reporting any local reactions to immunother apy injections . For patients of child bearing age, reviewed importance of reporting . Follow up with MD made in 6 months. [id number] KM ACE Allergy [address] [place] [address],[place] [address] [place] [address] 03/02/2024 12:02:58 03/02/2024 12:05:15 Perennial allergic rhinitis 958488145 J30.89 [id number] MARITA HARTLEY A Allergy [address] [place] [address],[place] [address] [place] [address] 03/09/2024 10:13:13 03/09/2024 10:51:08 Perennial allergic rhinitis 975888927 J30.89 [id number] MARITA HARTLEY A Allergy [address] [place] [address],[place] [place] [address] 03/16/2024 12:03:10 03/16/2024 12:04:45 Perennial allergic rhinitis 504681984 J30.89 [id number] ALMA AHN [facility] 100 [facility],[place] [address] [place] [address] 03/26/2024 10:15:02 03/26/2024 10:17:04 Perennial allergic rhinitis 632979287 J30.89 Patient presents to begin immunother apy injections . Reviewed injection hours, importance of compliance and of reporting any changes in medication s. Also reviewed importance of reporting any local reactions to immunother apy injections . For patients of child bearing age, reviewed importance of reporting . Follow up with MD made in 6 months. [id number] BECCA EVANS RN Allergy [address] [place] [address],[place] [address] [place] [address] 04/02/2024 10:45:59 04/02/2024 11:00:20 Perennial allergic rhinitis 502059193 J30.89 [id number] BECCA EVANS RN Allergy [address] [place] [address], [address] [place] [address] 04/09/2024 09:47:25 04/09/2024 09:51:32 Perennial allergic rhinitis 971576611 J30.89 [id number] ALMA PAPPAS [facility] Allergy 100 [facility],[place] [address] [place] [address] 04/16/2024 12:49:55 04/16/2024 12:51:18 Perennial allergic rhinitis 163595765 J30.89 Patient presents to begin immunother apy injections . Reviewed injection hours, importance of compliance and of reporting any changes in medication s. Also reviewed importance of reporting any local reactions to immunother apy injections . For patients of child bearing age, reviewed importance of reporting . Follow up with MD made in 6 months. [id number] ALMA PAPPAS [facility] Allergy 100 [facility],[place] [address] [place] [address] 04/23/2024 10:51:04 04/23/2024 11:09:05 Perennial allergic rhinitis 289913940 J30.89 Patient presents to begin immunother apy injections . Reviewed injection hours, importance of compliance and of reporting any changes in medication s. Also reviewed importance of reporting any local reactions to immunother apy injections . For patients of child bearing age, reviewed importance of reporting . Follow up with MD made in 6 months. [id number] BECCA EVANS RN Allergy 100 [facility],[place] [address] [place] [address] 04/27/2024 13:25:28 04/27/2024 13:26:35 Perennial allergic rhinitis 835575786 J30.89 [id number] BECCA EVANS RN Allergy 100 [facility], [address] [place] [address] 05/07/2024 11:11:07 05/07/2024 11:12:27 Perennial allergic rhinitis 169961410 J30.89 Patient presents to begin immunother apy [...] by Organization Details LastModified Time None Recorded Advance Directives Directive None Recorded Payers Encounter Date Sequence Insurance Name Policy Number Policy Pardo Covered Member ID Pardo Member ID Guarantor Name 04/09/2024 1 [place] [facility] Venkata Fabian [id number] Irza Bigas Melara 04/09/2024 2 [place] [facility] (MEDICAID) Irza Bigas [id number] Irza Bigas Melara 04/16/2024 1 [place] [facility] Venkata Rod Bigas [id number] Irza Bigas Melara 04/16/2024 2 [place] [facility] ([place]) Irza Bigas [id number] Irza Bigas Melara 04/23/2024 1 [place] [facility] Venkata Rod Bigas [id number] Irza Bigas Melara 04/23/2024 2 [place] [facility] ([place]ICAID) Irza Bigas [id number] Irza Bigas Melara 04/27/2024 1 [place] [facility] Venkata Rod Bigas [id number] Irza Bigas Melara 04/27/2024 2 MEDICAID-[facility] (MEDICAID) Venkata Fabian [id number] Venkata Melara 05/07/2024 1 [place] [facility] Venkata Fabian [id number] Venkata Melara 05/07/2024 2 [place] [facility] (MEDICAID) Venkata Fabian [id number] Venkata Melara OBGyn Episode No OBEpisode recorded.
--- OUTSIDE RECORDS SUMMARY | 2024-05-13 19:40 | XMS_ITS | Continuity of Care Document ---
Author Organization [place] - [facility], Allergy Address [address] [place] [address] Care Team Providers Care Longwall Shearer Operator Name Role Phone SINCERE VALLE Primary Care Provider Assessment Encounter Date Assessment Date Assessment LastModified by Organization Details LastModified Time 05/07/2024 05/07/2024 Visit With: KM Bradley Use [...] Organization Details Last Modified Time Details Appointments [facility]- Allergy f-up 6mon 2024 09:30A M EMILI [...] Address Organization Details Recorded Time Nasal congestion 91875465 Active 2023 EMILI MILES MD [address] [place] [address], [address] [place] [facility] 4 14:36:00 Allergic rhinitis 83457568 Active 2023 EMILI MILES MD [address] [place] [address] 100, [place], [address], [place] [facility] [place] 4 14:36:09 Mild intermittent asthma 727008067 Active 2023 EMILI MILES MD 100 [facility], [facility] [place], [address], [place] [facility] [place] 4 14:36:25 Chronic rhinitis 14013298 Active 2023 EMILI MILES MD 100 [facility],[address], [place], [address], [place] [facility] [place] 4 08:53:38 Perennial allergic rhinitis 471403714 Active 2023 ALMA AHN, [facility] 100 [facility], [facility] [place], [address], [place] [facility] [place] 4 09:37:53 Problem Notes None recorded. Procedures Surgical History Date Name Laterality Status Provider Name and Address Organization Details Recorded Time 05/07/19 25 Allergy Immunotherapy Injections completed BECCA EVANS RN 100 [facility],[address], [address], [facility] - [facility] [place] 05/07/2024 11:12:00 04/27/19 25 Allergy Immunotherapy Injections completed BECCA EVANS RN 100 [facility],[address], [address], [facility] - [facility] [place] 04/27/2024 13:26:05 04/23/19 25 Allergy Immunotherapy Injections completed ALMA AHN [facility] 100 [facility],[address], [address], [facility] - [facility] [place] 04/23/2024 10:51:49 04/16/19 25 Allergy Immunotherapy Injections completed ALMA AHN A [address] [facility] [address] [address],[place] [address], [address], [facility] - [facility] [place] 04/16/2024 12:50:47 04/09/19 25 Allergy Immunotherapy Injections completed BECCA EVANS RN [address], [place], [address], [place] [facility] [place] 04/09/2024 09:50:33 04/02/19 25 Allergy Immunotherapy Injections completed BECCA EVANS RN [address],[place] [address], [address], [place] [facility] [place] 04/02/2024 10:46:40 03/26/19 25 Allergy Immunotherapy Injections completed ALMA AHN, RMA [address],[place] [address], [address], [place] [facility] [place] 03/26/2024 10:16:19 03/16/19 25 Allergy Immunotherapy Injections completed MAMIE ACEA [address],[place] [address], [address], [place] [facility] [place] 03/16/2024 12:04:12 03/09/20 24 Allergy Immunotherapy Injections completed KM ACE [address] [facility] [address],[place] [place] [address], [address], [place] [facility] 03/09/2024 10:26:16 03/02/20 24 Allergy Immunotherapy Injections completed MAMIE ACEA [address] [facility] [address],[place] [address] [place] [address], [address], [facility] - [facility] [place] 03/02/2024 12:04:34 02/24/20 24 Allergy Immunotherapy Injections completed ALMA AHN, RMA [address],[place] [address], [address], [facility] - [facility] 02/24/2024 11:20:06 02/16/20 24 Allergy Immunotherapy Injections completed ALMA AHN, RMA [address],[place] [address] [place] [address], [address], [place] [facility] [place] 02/16/2024 09:38:03 01/02/20 24 Allergy Testing-Full completed ALMA AHN, RMA [address],[place] [address], [address], [place] [facility] 01/02/2024 14:13:04 12/05/19 24 JMSNasal/Sinus Endoscopy completed EMILI ELMORE MD 100 [facility],[place] [address], [place], [address], [facility] - [facility] 12/05/2023 14:35:53 Imaging Results None recorded. [...] azelastine 137 mcg (0.1 %) nasal spray [place] 2 sprays twice a day by intranasa [...] Disorder N Anesthesia Complications N Heart Attack (ND) N Other Skin Condition N Diabetes N [...] SNOMED-CT Code Diagnosis ICD10 Code Diagnosis Note [id number] BECCA EVANS RN Allergy [address] [place] [address],[place] [address] 100 [place] [address] 04/09/2024 09:47:25 04/09/2024 09:51:32 Perennial allergic rhinitis 437473757 J30.89 [id number] ALMA AHN [facility] Allergy [address] [place] [address],[place] 100 [place] [address] 04/16/2024 12:49:55 04/16/2024 12:51:18 Perennial allergic rhinitis 282682779 J30.89 Patient presents to begin immunother apy injections . Reviewed injection hours, importance of compliance and of reporting any changes in medication s. Also reviewed importance of reporting any local reactions to immunother apy injections . For patients of child bearing age, reviewed importance of reporting . Follow up with MD made in 6 months. [id number] ALMA AHN [facility] Allergy 100 [facility],[place] [address] 100 [place] [address] 04/23/2024 10:51:04 04/23/2024 11:09:05 Perennial allergic rhinitis 460618892 J30.89 Patient presents to begin immunother apy injections . Reviewed injection hours, importance of compliance and of reporting any changes in medication s. Also reviewed importance of reporting any local reactions to immunother apy injections . For patients of child bearing age, reviewed importance of reporting . Follow up with MD made in 6 months. [address]195 BECCA EVANS RN Allergy [address] [place] [address],[place] [address] 100 [place] [address] 04/27/2024 13:25:28 04/27/2024 13:26:35 Perennial allergic rhinitis 786128829 J30.89 87811 BECCA EVANS RN Allergy 100 [facility] 100 [facility] [place] [address] 05/07/2024 11:11:07 05/07/2024 11:12:27 Perennial allergic rhinitis 714687500 J30.89 Patient presents to begin immunother apy [...] Member ID Pardo Member ID Guarantor Name 05/07/2024 1 [place] [facility] Venkata Fabian [id number] Venkata Melara 05/07/2024 2 [place] [facility] (MEDICAID) Venkata Fabian [id number] Venkata Melara OBGyn Episode No OBEpisode recorded.
== END 2024-05-13 17:40 | disposition home or self-care (01) ==
LOC: HO.HHCLNP 17:39
PROVIDERS: Visit Provider Family Medicine
DX: N90.89 Other specified noninflammatory disorders of vulva and perineum (principal)
CPT/HCPCS: 87255

== ENCOUNTER 2024-05-18 14:21 | Outpatient (REF) | payer MEDICAID, SELFPAY ==
--- OUTSIDE RECORDS SUMMARY | 2024-05-18 17:39 | XMS_ITS | Data Portability ---
Author Organization [place] - [facility], Allergy Address [address] [place] [address] Care Team Providers Care Machine Tool Technician Instructor Name Role Phone SINCERE VALLE Primary Care Provider [phone] Assessment Encounter Date Assessment Date Assessment LastModified [...] Aware of Vial Test Notes:? ? ? [email or web address] Not available 04/23/2024 10:51:57 04/27/2024 04/27/2024 Visit [...] ? ? [email or web address] Not available 05/07/2024 11:12:11 05/14/2024 05/14/2024 Visit With: Michelle Hartley Use of Antihistamine s: Yes If yes: Vial Test Change in medications: No If yes ? ? ? Increase in asthma symptoms If yes, inhaler use: Reaction to last injections: No If yes: ? ? ? Allergy Symptoms: Other: ? ? ? Missed: Dose Aware of Vial Test Notes:? ? ? [email or web address] Not available 05/14/2024 14:40:45 Plan of Treatment Reminders Order Date Submit Date Provider Last Modified By Organization Details Last Modified Time Details Appointments [facility]- Allergy f-up 6mon 2024 09:30A M [...] Address Organization Details Recorded Time Nasal congestion 44157073 Active 2023 EMILI MILES MD [address] [place] [address], [place], [address], [place] [facility] 4 14:36:00 Allergic rhinitis 21440090 Active 2023 EMILI MILES MD [address] [place], [place] [address] [place], [address], [place] [facility] 4 14:36:09 Mild intermittent asthma 198273591 Active 2023 EMILI MILES MD [address] [place] [address], [place], [address], [facility] - [facility] [place] 4 14:36:25 Chronic rhinitis 77569346 Active 2023 EMILI MILES MD 100 [facility],[address] [facility], [place], [address], [facility] - [facility] [place] 4 08:53:38 Perennial allergic rhinitis 589489837 Active 2023 ALMA ANABELLE, ON LICENSE OF [facility] 100 [facility], [address], [place], [address], [facility] - [facility] [place] 09:37:53 Problem Notes None recorded. Procedures Surgical History Date Name Laterality Status Provider Name and Address Organization Details Recorded Time 05/15/19 25 Allergy Immunotherapy Injections completed ALMA AHN ON LICENSE OF [facility] 100 [facility],[address], [address], [facility] - [facility] [place] 05/14/2024 14:40:25 05/07/19 25 Allergy Immunotherapy Injections completed BECCA EVANS RN 100 [facility],[address], [address], [facility] - [facility] [place] 05/07/2024 11:12:00 04/27/19 25 Allergy Immunotherapy Injections completed BECCA EVANS RN 100 [facility],[address], [address], [facility] - [facility] [place] 04/27/2024 13:26:05 04/23/19 25 Allergy Immunotherapy Injections completed ALMA AHN ON LICENSE OF [facility] 100 [facility],[address], [address], [facility] - [facility] [place] 04/23/2024 10:51:49 04/16/19 25 Allergy Immunotherapy Injections completed ALMA AHN ON LICENSE OF [facility] 100 [facility],[address], [address], [facility] - [facility] [place] 04/16/2024 12:50:47 04/09/19 25 Allergy Immunotherapy Injections completed BECCA EVANS RN 100 [facility],[address], [address], [facility] - [facility] [place] 04/09/2024 09:50:33 04/02/19 25 Allergy Immunotherapy Injections completed BECCA EVANS RN [address],[place] [address] [place] [address], [address], [place] [facility] [place] 04/02/2024 10:46:40 03/26/19 25 Allergy Immunotherapy Injections completed ALMA AHN, RMA [address],[place] [address], [place], [address], [place] [facility] [place] 03/26/2024 10:16:19 03/16/19 25 Allergy Immunotherapy Injections completed MICHELLE HARTLEY RMA [address], [place], [address], [place] [facility] [place] 03/16/2024 12:04:12 03/09/20 24 Allergy Immunotherapy Injections completed [facility]IE ACEA [address] [facility] [address],[place] [address] [place] [address], [address], [place] [facility] 03/09/2024 10:26:16 03/02/20 24 Allergy Immunotherapy Injections completed MICHELLE HARTLEY RMA [address],[place] [facility], [place], [address], [place] [facility] 03/02/2024 12:04:34 02/24/20 24 Allergy Immunotherapy Injections completed ALMA AHN, RMA [address] [facility],[place] [address] [place] [address], [address], [facility] - [facility] 02/24/2024 11:20:06 02/16/20 24 Allergy Immunotherapy Injections completed ALMA PAPPASC, RMA [address] [facility],[place] [address] [place] [address], [address], [facility] - [facility] 02/16/2024 09:38:03 01/02/20 24 Allergy Testing-Full completed ALMA AHN, RMA [address] [facility],[place] [address] [place] [address], [address], [place] [facility] [place] 01/02/2024 14:13:04 12/05/19 24 JMSNasal/Sinus Endoscopy completed EMILI ELMORE MD [address],[place] [address] [place] [address], [address], [place] [facility] [place] 12/05/2023 14:35:53 Imaging Results None recorded. Procedure [...] azelastine 137 mcg (0.1 %) nasal spray [place] 2 sprays twice a day by intranasa [...] Disorder N Anesthesia Complications N Heart Attack (DC) N Other Skin Condition N Diabetes N [...] SNOMED-CT Code Diagnosis ICD10 Code Diagnosis Note [id number] EMILI MENEZES MD [facility] [address] [address] 12/05/2023 13:55:58 12/05/2023 14:57:50 Nasal congestion 85466292 R09.81 Allergic rhinitis 906886 04 J30.9 Mild inter mittent asthma 233723877 J45.20 05612 ALMA ELYSE ON LICENSE OF [facility] Allergy [address] [place] [address] 12/05/2023 14:39:15 12/05/2023 15:38:00 Mild intermittent asthma 352097698 J45.[address] [facility] [address] [place] [address] 01/02/2024 12:55:00 01/02/2024 14:16:16 Allergic rhinitis 73290380 J30.9 64976 EMILI MENEZES MD [facility] [address] [address] 01/30/2024 08:27:23 01/30/2024 08:56:28 Allergic rhinitis 18460200 J30.89 We discussed that given the significan [...] Use of an Epipen discussed. Nasal congestion 2513303 0 R09.81 Chronic rhinitis 2749029 6 J31.0 03037 [facility] 100 [facility],[address] [address] [place] [address] 02/16/2024 09:25:53 02/16/2024 09:39:29 Perennial allergic rhinitis 142698523 J30.89 Patient presents to begin immunother apy injections . Reviewed injection hours, importance of compliance and of reporting any changes in medication s. Also reviewed importance of reporting any local reactions to immunother apy injections . For patients of child bearing age, reviewed importance of reporting . Follow up with MD made in 6 months. 09982 ALMA TKJOLENE ON LICENSE OF [facility] Allergy 100 [facility],[address] [address] [place] [address] 02/24/2024 11:19:07 02/24/2024 11:20:43 Perennial allergic rhinitis 332541029 J30.89 Patient presents to begin immunother apy injections . Reviewed injection hours, importance of compliance and of reporting any changes in medication s. Also reviewed importance of reporting any local reactions to immunother apy injections . For patients of child bearing age, reviewed importance of reporting . Follow up with MD made in 6 months. [address]07 KM ACE Allergy 100 [facility],[address] [address] [place] [address] 03/02/2024 12:02:58 03/02/2024 12:05:15 Perennial allergic rhinitis 214873430 J30.89 18771 KM ACE [facility]ergy 100 [facility] [place],[address] [place] [address] 03/09/2024 10:13:13 03/09/2024 10:51:08 Perennial allergic rhinitis 211991900 J30.89 18980 KM ACE Allergy [address] [place] [address], [address] [place] [address] 03/16/2024 12:03:10 03/16/2024 12:04:45 Perennial allergic rhinitis 255056036 J30.89 74225 ALMA PAPPAS, ON LICENSE OF [facility] Allergy [address] [place] [address],[address] [place] [address] 03/26/2024 10:15:02 03/26/2024 10:17:04 Perennial allergic rhinitis 525060216 J30.89 Patient presents to begin immunother apy injections . Reviewed injection hours, importance of compliance and of reporting any changes in medication s. Also reviewed importance of reporting any local reactions to immunother apy injections . For patients of child bearing age, reviewed importance of reporting . Follow up with MD made in 6 months. [address]902 BECCA EVANS RN Allergy [address] [place] [address] [address] [place] [address] 04/02/2024 10:45:59 04/02/2024 11:00:20 Perennial allergic rhinitis 506361978 J30.89 47166 BECCA EVANS RN Allergy [address] [place] [address], [address] [place] [address] 04/09/2024 09:47:25 04/09/2024 09:51:32 Perennial allergic rhinitis 409893008 J30[address] [facility] All[facility] [address] [place] [address],[place] [address] [place] [address] 04/16/2024 12:49:55 04/16/2024 12:51:18 Perennial allergic rhinitis 180245056 J30.89 Patient presents to begin immunother apy injections . Reviewed injection hours, importance of compliance and of reporting any changes in medication s. Also reviewed importance of reporting any local reactions to immunother apy injections . For patients of child bearing age, reviewed importance of reporting . Follow up with MD made in 6 months. 13547 ALMA PAPPAS ON LICENSE OF [facility] Allergy [address] [place] [address],[address] [place] [address] 04/23/2024 10:51:04 04/23/2024 11:09:05 Perennial allergic rhinitis 159004720 J30.89 Patient presents to begin immunother apy injections . Reviewed injection hours, importance of compliance and of reporting any changes in medication s. Also reviewed importance of reporting any local reactions to immunother apy injections . For patients of child bearing age, reviewed importance of reporting . Follow up with MD made in 6 months. 20346 BECCA EVANS RN Allergy 100 [facility],[place] [address] 100 [facility] [place] [address] 04/27/2024 13:25:28 04/27/2024 13:26:35 Perennial allergic rhinitis 761529612 J30.89 19764 BECCA EVANS RN Allergy 100 [facility], [address] 100 [facility] [place] [address] 05/07/2024 11:11:07 05/07/2024 11:12:27 Perennial allergic rhinitis 065234071 J30.89 Patient presents to begin immunother apy injections . Reviewed injection hours, importance of compliance and of reporting any changes in medication s. Also reviewed importance of reporting any local reactions to immunother apy injections . For patients of child bearing age, reviewed importance of reporting . Follow up with MD made in 6 months. [address]165 ALMA PAPPASMiriam, RMA Allergy 100 [facility], [address] 100 [facility] [place] [address] 05/14/2024 14:37:59 05/14/2024 14:41:12 Perennial allergic rhinitis 196586775 J30.89 Health Concerns Section Related Observation LastModified by Organization Detai ls LastModified Time None Recorded Concern Status LastModified by Organization Details LastModified Time None Recorded Advance Directives Directive None Recorded Payers Encounter Date Sequence Insurance Name Policy Number Policy Pardo Covered Member ID Pardo Member ID Guarantor Name 04/16/2024 1 [place] [facility] Venkata Rod Caren [id number] Venkata Newsomeendez 04/16/2024 2 [place] [facility] ([place]ICAID) Venkata Fabian [id number] Venkata Fabian Melara 04/23/2024 1 [place] [facility] Venkata Rod Caren [id number] Venkata Fabian Melara 04/23/2024 2 [place] [facility] ([place]ID) Venkata Fabian [id number] Irza Bigas Melara 04/27/2024 1 [place] [facility] Venkata Fabian [id number] Venkata Bigas Melara 04/27/2024 2 MEDICAID-[facility] (MEDICAID) Venkata Yorkas [id number] Venkata Bigas Melara 05/07/2024 1 [place] [facility] Venkata Fabian [id number] Venkata Chelaas Melara 05/07/2024 2 MEDICAID-[facility] (MEDICAID) Venkata Yorkas [id number] Venkata Bigas Melara 05/14/2024 1 [place] [facility] Venkata Fabian [id number] Iranabel Bigas Melara 05/14/2024 2 MEDICAID-[facility] (MEDICAID) Venkata Yorkas [id number] Venkata Yorkas Melara OBGyn Episode No OBEpisode recorded.
--- OUTSIDE RECORDS SUMMARY | 2024-05-18 17:39 | XMS_ITS | Encounter Summary ---
Author Organization [employer] Address [address] [place] [address] Care Team Providers Care Electric Motor Tester Assembler Name Role Phone Nilam Henry MD Primary Care Provide r Encounter Details Date Type Department Care Team (Late st Contact Info) Description 05/13/2024 1:20 PM EST Office Visit [facility] [address] [place] [address] Kristen Cooper DO [address] [place] [address] Labial lesion (Primary Dx) Social History Tobacco [...] were sexually active while they were in [place] on vacation last week. Her blisters appeared a couple days after returning home. She denies any other lifetime sexual partners and her has told her the same. 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
--- OUTSIDE RECORDS SUMMARY | 2024-05-18 17:39 | XMS_ITS | Encounter Summary ---
Author Organization [employer] Address [address] [place] [address] Care Team Providers Care Calender Inspector Name Role Phone Nilam Henry MD Primary Care Provide r Reason for Visit * Reason Comments Blister Encounter Details Date Type Department Care Team (Late st Contact Info) Description 05/14/2024 3:00 PM EST Office Visit [facility] [address] [place] [address] Nilam Henry MD [address] [place] [address] Labial lesion (Primary Dx) Social History Tobacco [...] Access Q2 Not on file 11/07/2023 Comments No Sex and Gender Information Value Date Recorded Sex Assigned at Female 01/07/2022 10:33 AM EDT Legal Sex Female 10:33 AM EDT Gender Identity Female 01/07/2022 10:33 AM EDT Sexual Orientation Straight 01/07/2022 10 :33 AM EDT documented as of this encounter Last Filed Vital Signs Vital Sign Reading Time Taken Comments Blood Pressure 132/87 05/14/2024 2:44 PM EST Pulse 59 05/14/2024 2:44 PM EST Temperature 36.6 ??C (97.9 ??F) 05/14/2024 2:44 PM ES T Respiratory Rate 16 05/14/2024 2:44 PM EST Oxygen Saturation 98% 05/14/2024 2:44 PM EST Inhaled Oxygen Concentration - - Weight 66.7 kg (147 lb) 05/14/2024 2:44 PM EST Height 170.2 cm (5' 7 ) 05/14/2024 2:44 PM EST Body Mass Index 23.02 05/14/2024 2:44 PM EST documented in this encounter Progress Notes * Nilam Hopper MD - 05/14/2024 3:00 PM EST Images from the original note were not included. SUBJECTIVE: Venkata Melara is a 53 y.o. year old female who presents for blisters in vaginal area . Acute Concerns: Patient was seen here yesterday (May 13, 2024) for same reason, patient tells me that the blistersand lesions appeared 3 days ago and not 5 days ago, she tells me she got confused with the days, she tells me it is burning when she pees and that the blisters extended now to the other side for thisreason she got concerned. Patient is upset and anxious about the herpes diagnosis in light she onlyhas been with 1 partner same for years and wanted a second opinion to see if it was herpes or other condition Social History Social History Narrative Not on file Patient Active Problem List Diagnosis Allergic rhinitis Anxiety Apnea Essential hypertension Hypertensive disorder Insomnia Mild intermittent asthma Mood disorder (CMS/HCC) Persistent hypersomnia Recurrent major depression (CMS/HCC) Snoring Visual impairment Numbness and tingling in left hand Encounter for physical examination Left hip pain Chronic sinusitis Discoloration of skin Labial lesion Family History Problem Relation Name Age of Onset Pulmonary embolism Mother Review of Systems Constitutional: Negative. HENT: Negative. Respiratory: Negative. Cardiovascular: Negative. Genitourinary: Vaginal lesions OBJECTIVE: Vitals: 05/14/24 1444 BP: 132/87 BP Location: Right arm Patient Position: Sitting BP Cuff Size: Adult Pulse: 59 Resp: 16 Temp: 97.9 ??F (36.6 ??C) TempSrc: Temporal SpO2: 98% Weight: 147 lb (66.7 kg) Height: 5' 7 (1.702 m) Physical Exam Constitutional: Appearance: Normal appearance. Cardiovascular: Rate and Rhythm: Normal rate and regular rhythm. Pulmonary: Effort: Pulmonary effort is normal. Breath sounds: Normal breath sounds. Abdominal: General: Abdomen is flat. Palpations: Abdomen is soft. Genitourinary: Comments: Multiple small vesicles located on both labia one of the lesions is open Neurological: Mental Status: She is alert. Follow Up: No follow-ups on file. Current Outpatient Medications on File Prior to Visit Medication Sig Dispense Refill amLODIPine (Norvasc) 2.5 MG tablet TAKE 1 TABLET BY MOUTH EVERY DAY 90 tablet 1 busPIRone (Buspar) 15 MG tablet Take 1 tablet by mouth 2 times daily. hydroCHLOROthiazide (HYDRODiuril) 25 MG tablet TAKE 1 TABLET BY MOUTH EVERY DAY IN THE MORNING 90 tablet 1 loratadine (Claritin) 10 MG tablet TAKE 1 TABLET BY MOUTH EVERY MORNING 90 tablet 3 tarwsmrh-jgqftuewzo-fexalvzqp (Neosporin) 5-400-5000 ointment Apply topically if needed in the morning, at noon, and at bedtime for irritation. 28 g 2 [DISCONTINUED] Dextromethorphan-guaiFENesin (Mucinex DM) 30-600 MG tablet sustained-release 12 hourUse 1 tab TID 28 tablet 0 [DISCONTINUED] Paxlovid, 300/100, 20 x 150 MG & 10 x 100MG tablet therapy pack TAKE 3 TABLETS BY MOUTH TWICE DAILY DIRECTED ON BOX FOR 5 DAYS 30 each 0 No current facility-administered medications on file prior to visit. Problem List Items Addressed This Visit Labial lesion - Primary Clinical picture possible genital herpes versus folliculitis I will treat patient with valacyclovir 1 g twice a day for 1 week I will cover also with antibiotics doxycycline 100 mg twice a day Patient will be contacted with results of the test done yesterday Relevant Medications valACYclovir (Valtrex) 1 g tablet doxycycline (Vibra-Tabs) 100 MG tablet documented in this encounter Miscellaneous Notes * Assessment & Plan Note - Nilam Hopper MD - 05/14/2024 4:27 PM EST Associated Problem(s): Labial lesion Clinical picture possible genital herpes versus folliculitis I will treat patient with valacyclovir 1 g twice a day for 1 week I will cover also with antibiotics doxycycline 100 mg twice a day Patient will be contacted with results of the test done yesterday documented in this encounter Plan of Treatment Not on file documented as of this encounter Visit Diagnoses Diagnosis Labial lesion- Primary Other specified noninflammatory disorder of vulva and perineum documented in this encounter Additional Health Concerns Assessment Noted Time PHQ-9 Depression Total Score: 12 11/26/ 024 11:11 AM EDT documented as of this encounter Care Teams Calender Inspector Relationship Specialty Start Date End Date Nilam Henry MD [address] [place] [address] PCP - General Family Medicine 02/26/19 documented as of this encounter
--- OUTSIDE RECORDS SUMMARY | 2024-05-18 17:39 | XMS_ITS | Encounter Summary ---
Author Organization [employer] Address [address] [place] [address] Care Team Providers Care Risk Control Manager Name Role Phone Nilam Henry MD Primary Care Provide r Reason for Visit * Reason Comments Med Refill Encounter Details Date Type Department Care Team (Late st Contact Info) Description 12/03/2023 Refill [facility] MEDICINE [address] [place] [address] Nilam Henry MD [address] [place] [address] Essential hypertension Social History Tobacco Use Types [...] documented as of this encounter Care Teams Risk Control Manager Relationship Specialty Start Date End Date Nilam Henry MD [address] [place] [address] PCP - General Family Medicine 02/26/19 documented as of this encounter
--- OUTSIDE RECORDS SUMMARY | 2024-05-18 17:39 | XMS_ITS | Continuity of Care Document ---
Author Organization [place] [facility] Address [address] [place] [phone] Care Team Providers Care Hearing Health Technician Name Role Phone ELSIE LEYSINCERE Primary Care Provider Assessment Encounter Date Assessment [...] Organization Details Last Modified Time Details Appointments [facility]- Allergy f-up 6mon 2024 09:30A M EMILI [...] Address Organization Details Recorded Time Nasal congestion 06524048 Active 2023 EMILI MILES MD [address] [place] [address], [phone] [place] [facility] 4 14:36:00 Allergic rhinitis 67860319 Active 2023 EMILI MILES MD [address] [place] [address] 100, [place], [address], [place] - [facility] 4 14:36:09 Mild intermittent asthma 989502883 Active 2023 EMILI MILES MD [address] [facility], [place], [address], [place] [facility] 4 14:36:25 Chronic rhinitis 91007771 Active 2023 EMILI MILES MD [address] [facility], [place], [address], [place] - [facility] 4 08:53:38 Perennial allergic rhinitis 878217407 Active 2023 ALMA [facility]N, RMA [address] [facility], [place], [address], [place] [facility] 4 09:37:53 Problem Notes None recorded. Procedures Surgical History Date Name Laterality Status Provider Name and Address Organization Details Recorded Time 05/15/19 25 Allergy Immunotherapy Injections completed [facility] [address] [facility],[place] [address] [place] [address], [phone], [facility] - [facility] 05/14/2024 14:40:25 05/07/19 25 Allergy Immunotherapy Injections completed BECCA EVANS RN [address] [facility],[address], [address], [facility] - [facility] 05/07/2024 11:12:00 04/27/19 25 Allergy Immunotherapy Injections completed BECCA EVANS RN 100 [facility],[place] [address], [place], [address], [facility] - [facility] 04/27/2024 13:26:05 04/23/19 25 Allergy Immunotherapy Injections completed ALMA AHN, RMA [address] [address], [place], [address], [facility] - [facility] 04/23/2024 10:51:49 04/16/19 25 Allergy Immunotherapy Injections completed ALMA AHN RMA [address],[place] [address], [place], [address], [place] [facility] 04/16/2024 12:50:47 04/09/19 25 Allergy Immunotherapy Injections completed BECCA EVANS RN [address],[place] [address], [place], [address], [place] [facility] 04/09/2024 09:50:33 04/02/19 25 Allergy Immunotherapy Injections completed BECCA EVANS RN [address],[place] [address], [place], [address], [place] [facility] 04/02/2024 10:46:40 03/26/19 25 Allergy Immunotherapy Injections completed ALMA AHN RMA [address] [address], [place], [address], [place] [facility] 03/26/2024 10:16:19 03/16/19 25 Allergy Immunotherapy Injections completed KM ACE [address],[place] [address] [place] [address], [address], [place] [facility] 03/16/2024 12:04:12 03/09/20 24 Allergy Immunotherapy Injections completed KM CAE [address],[place] [address] [place] [address], [address], [place] [facility] 03/09/2024 10:26:16 03/02/20 24 Allergy Immunotherapy Injections completed MAMIE ACEA [address],[place] [address], [place], [address], [place] [facility] 03/02/2024 12:04:34 02/24/20 24 Allergy Immunotherapy Injections completed ALMA AHN RMA [address],[place] [address], [place], [address], [place] [facility] 02/24/2024 11:20:06 02/16/20 24 Allergy Immunotherapy Injections completed ALMA AHN, RMA [address],[place] [address], [place], [address], [place] [facility] 02/16/2024 09:38:03 01/02/20 24 Allergy Testing-Full completed ALMA AHN, RMA [address],[facility] 100, [place], [address], [place] [facility] 01/02/2024 14:13:04 12/05/19 24 JMSNasal/Sinus Endoscopy completed EMILI ELMORE MD 100 [facility] 100, [place], [address], [facility] - [facility] 12/05/2023 14:35:53 Imaging Results None recorded. [...] azelastine 137 mcg (0.1 %) nasal spray Oxbow 2 sprays twice a day by intranasa [...] Disorder N Anesthesia Complications N Heart Attack (RI) N Other Skin Condition N Diabetes N [...] SNOMED-CT Code Diagnosis ICD10 Code Diagnosis Note [id number] BECCA EVANS RN Allergy [address] [place] [address] 100 [place] [address] 04/02/2024 10:45:59 04/02/2024 11:00:20 Perennial allergic rhinitis 343751095 J30.89 81429 BECCA EVANS RN Allergy [address] [place] [address] 04/09/2024 09:47:25 04/09/2024 09:51:32 Perennial allergic rhinitis 330257492 J30.89 [id number] [facility] [address] [place] [address] 100 [place] [address] 04/16/2024 12:49:55 04/16/2024 12:51:18 Perennial allergic rhinitis 375839617 J30.89 Patient presents to begin immunother apy injections . Reviewed injection hours, importance of compliance and of reporting any changes in medication s. Also reviewed importance of reporting any local reactions to immunother apy injections . For patients of child bearing age, reviewed importance of reporting . Follow up with made in 6 months. [id number] ALMA PAPPASMiriam[facility] [address] [place] [address] 100 [place] [address] 04/23/2024 10:51:04 04/23/2024 11:09:05 Perennial allergic rhinitis 739559938 J30.89 Patient presents to begin immunother apy injections . Reviewed injection hours, importance of compliance and of reporting any changes in medication s. Also reviewed importance of reporting any local reactions to immunother apy injections . For patients of child bearing age, reviewed importance of reporting . Follow up with MD made in 6 months. [id number] BECCA EVANS RN Allergy [address] [place] [address] [place], [place] [address] 04/27/2024 13:25:28 04/27/2024 13:26:35 Perennial allergic rhinitis 093040624 J30.89 Health Concerns Section Related Observation LastModified by Organization Detai ls LastModified Time None Recorded Concern Status LastModified by Organization Details LastModified Time None Recorded Payers Encounter Date Sequence Insurance Name Policy Number Policy Pardo Covered Member ID Pardo Member ID Guarantor Name 04/27/2024 1 [place] [facility] Venkata Fabian [id number] Venkata Melara 04/27/2024 2 [place] [facility] (MEDICAID) Venkata Fabian [id number] Venkata Melara OBGyn Episode No OBEpisode recorded.
--- OUTSIDE RECORDS SUMMARY | 2024-05-18 17:39 | XMS_ITS | Encounter Summary ---
Author Organization [employer] Address [address] [place] [address] Care Team Providers Care Cornice Maker Name Role Phone Nilam Henry MD Primary Care Provide r Encounter Details Date Type Department Care Team (Late st Contact Info) Description 05/13/2024 Orders Only [facility] [address] [place] [address] Kristen Cooper DO [address] [place] [address] Social History Tobacco Use Types Packs/Day Years [...] your housing situation today? I have anjali sing 10/29/[address] you li [...] Procedure Name Priority Date/Time Associated Diagnosis Comments HERPES SIMPLEX VIRUS CULTURE Routine 05/13/2024 1:55 PM EST documented in this encounter Results * (ABNORMAL) Herpes Simple Virus Culture (05/13/2024 1:55 PM EST) Herpes Virus Culture SEE NOTE(A) [facility] Comment:HERPES SIMPLEX VIRUS CULTURE Micro Number: [id number] Test Status: Final Specimen Source: Not given Specimen Quality: Adequate HSV Culture: IsolatedTHIS TEST WAS PERFORMED AT:[email or web address] [id number] MERATI,MD 05/13/2024 1:55 PM EST 05/13/2024 5:40 PM EST us Kristen Cooper DO LAB MICROBIOLOGY - GENERAL O RDERABLES Final Result [facility] [address] [place] [address] [phone] documented in this encounter Visit Diagnoses Not on filedocumented in this encounter Additional Health Concerns Assessment Noted Time PHQ-9 Depression Total Score: 12 11/26/ 024 11:11 AM EDT documented as of this encounter Care Teams Cornice Maker Relationship Specialty Start Date End Date Nilam Henry MD [address] [place] [address] PCP - General Family Medicine 02/26/19 documented as of this encounter
--- OUTSIDE RECORDS SUMMARY | 2024-05-18 17:39 | XMS_ITS | Clinical Summary ---
Author Organization [employer] Address [address] [place] [address] Care Team Providers Care Grain Oilseed Or Pasture Grower Name Role Phone Nilam Henry MD Primary [...] irritation. 28 g 2 05/14/19 25 Active valACYclovir (Valtrex) 1 g tabletIndicatio ns:Labial lesion Take 1 tablet (1,000 mg) by mouth 2 times daily for 7 days. 14 tablet 05/15/19 25 025 Active doxycycline (Vibra-Tabs) 100 MG tabletIndicatio ns:Labial lesion Take 1 tablet (100 mg) by mouth 2 times daily for 14 days. Take with a full glass of water and do not lie down for at least 30 minutes after. 28 tablet 05/15/19 25 025 Active Dextromethorpha n-guaiFENesin (Mucinex DM) 30-600 MG tablet sustained-relea se 12 hour Use 1 tab TID 28 tablet 11/17/19 24 025 Discontinued Paxlovid, 300/100, 20 x 150 MG & 10 x 100MG tablet therapy pack TAKE 3 TABLETS BY MOUTH TWICE DAILY DIRECTED ON BOX FOR 5 DAYS 30 each 11/17/19 24 025 Discontinued(Th erapy completed) Active Problems Problem Noted Date Diagnosed Date Labial lesion 05/14/2024 Assessment & Plan (05/14/2024 4:27 PM EST): Clinical picture possible genital herpes versus folliculitis I will treat patient with valacyclovir 1 g twice a day for 1 week I will cover also with antibiotics doxycycline 100 mg twice a day Patient will be contacted with results of the test done yesterday Discoloration of skin 07/22/2023 Chronic sinusitis 06/20/2023 [...] Encounters Date Type Department Care Team Description 05/17/2024 Orders Only [facility] MEDICINE [address] [place] [address] Nilam Henry MD Possible exposure to STI (Primary Dx) 05/14/2024 3:00 PM EST Office Visit [facility] WALKIN [address] [address] Nilam Henry MD Labial lesion (Primary Dx) 05/13/2024 1:20 PM EST Office Visit [facility] WALKIN [address] [address] Kristen Cooper DO Labial lesion (Primary Dx) 05/13/2024 Orders Only [facility] MEDICINE [address] [place] [address] Kristen Cooper DO 03/11/2024 Refill [facility] MEDICINE [address] [place] [address] Nilam Henry MD Essential hypertension from Last [...] Mass Index 23.02 05/14/2024 2:44 PM EST Plan of Treatment Health Maintenance [...] (PHQ-9) 05/26/2024 11/27/2023, 11/27/2023 Mammogram 08/24/2024 08/25/2023, 0508/2022, 07/23/2022, Additional history exists SDOH Screening 10/28/2024 10/29/2023 Depression Screening 11/26/2024 11/27/2023, 11/27/19 24 Alcohol/Substance Use Screening 12/28/2024 12/29/2023 Tobacco Screening 05/14/2025 05/14/2024 Colonoscopy 01/07/2027 Colorectal Cancer Screening 01/07/2027 DTaP/Tdap/Td Vaccines (2 - Td or Tdap) 04/07/2027 04/07/2017 Cervical Cancer Screening 09/18/2027 HPV/Cotest 09/18/2027 09/17/2022, 11/07/2017 Pap Smear 09/18/2027 09/17/2022 Lipid Panel 07/13/2028 07/14/2023, 0510/2022, 07/06/2021 RSV Patients and Patients Aged 60 [...] VIRUS CULTURE Routine 05/13/2024 1:55 PM EST BI MAMMOGRAM SCREENING TOMOSYNTHESIS BILATERAL Routine 08/25/2023 3:45 PM EDT LIPID PANEL, STANDARD Routine 07/14/2023 6:44 AM EDT Essential hypertension HM PAP/HPV Routine 09/17/2022 from Last 3 Months or Most Recently Relevant to Health Maintenance Results * (ABNORMAL) Herpes Simple Virus Culture (05/13/2024 1:55 PM EST) Herpes Virus Culture SEE NOTE(A) [facility] Comment:HERPES SIMPLEX VIRUS CULTURE Micro Number: [id number] Test Status: Final Specimen Source: Not given Specimen Quality: Adequate HSV Culture: IsolatedTHIS TEST WAS PERFORMED AT:[facility] [id number] MERATI,MD 05/13/2024 1:55 PM EST 05/13/2024 5:40 PM EST us Kristen Cooper DO LAB MICROBIOLOGY - GENERAL O RDERABLES Final Result [facility] [address] [place] [address] [phone] * BI Mammogram Screening Tomosynthesis Bilateral (08/25/2023 3:45 PM EDT) Anatomical Region Laterality Modality Breast Bilateral Mammography 08/25/2023 3:45 PM EDT Narrative 09/22/2023 4:43 PM EDT ? [facility] [place] ? [address] ?[place] [address] ? Mammography Report ? Signed ? Patient: Bigas Melara,Irza M ?MR#: M ?? [id number] ? : 1970 ?Acct:[id number] ? Age/Sex: 52 / F ?ADM Date: 06/17/24 ? Loc: HO.MAMMO ? Attending Dr: Nilam Hopper MD ? Ordering Physician: Nilam Henry MD ?Results: ?? 1Negative ? Date of Service: 08/25/23 ?Follow Up: 1 Year From Orig ?? inal Mammogram ? Procedure(s): MM tomosynthesis screening BI ?? Accession Number(s): [id number] ? cc: Nilam Henry MD ? EXAMINATION: [...] in OV> ? 09/22/23 1640 ? DD/ ? TD/TT: ? Marine Insulator: ? Procedure Note Alisa, Image - 09/22/2023 [facility] [address] [place] [address] Mammography Report Signed Patient: Venkata Julio MMR#: M [id number] : 1970Acct:[id number] Age/Sex: 52 / FADM Date: 08/25/23 Loc: HO.MAMMO Attending Dr: Nilam Hopper MD Ordering Physician: Nilam Henry MDResults: 1Negative Date of Service: 08/25/23Follow Up: 1 Year From Orig inal Mammogram Procedure(s): MM tomosynthesis screening BI Accession Number(s): [id number] cc: Nilam Henry MD EXAMINATION: MM SCREENING [...] in OV> 09/22/23 1640 DD/ 1545 TD/TT: Marine Insulator: us Nilam Hopper MD IMG BI PROCEDURES Fin al Result * (ABNORMAL) Lipid Panel, Standard (07/14/2023 6:44 AM EDT) Triglycerides 85 <150 mg/dL [facility] Comment:Desirable Triglyceri de: less than 150 mg/dLBorderline High Triglyceride 150-199 mg/dLHigh Triglyceride: 200-499 mg/dLVery High Triglyceride: greater than or equal to 5OO mg/dL Cholesterol 171 <200 mg/dL [facility] Comment:Desirable Cholestero l: less than 200 mg/dLBorderline High Cholesterol: 200-239 mg/dLHigh Cholesterol: greater than 239 mg/dL LDL Cholesterol Calculated 102(H) <100 mg/dL [facility] Comment:Desirable LDL: less than 100 mg/dLNear Optimal/Above Optimal LDL: 110- 129 mg/dLBorderline High LDL: 130-159 mg/dLHigh LDL: 160-189 mg/dLVery High LDL: greater than or equal to 190 mg/dL HDL Cholesterol 52 >40 mg/dL [facility] Comment:Desirable HDL: great er than 40 mg/dL Note: This HDL assay may give artificially low results in patients with liver disease. Blood Venous blood specimen / Unknown 07/14/2023 6:44 AM EDT 07/14/2023 6:46 AM EDT us Nilam Hopper MD LAB BLOOD ORDERABLES Final Result [facility] [address] [place] [phone] * Hm Pap Smear (09/17/2022) Pap Negative for intraephithelial lesion or malignancy Negative for intraephithelial lesion or malignancy, Other HPV Undetected Undetected, Indeterminate, Quantitative, Not Detected Historical Provider HEALTH MAINTENANCE Final Result from Last 3 Months or Most Recently Relevant to Health Maintenance Insurance [facility] , [address] [place] [address] [facility] Care Teams Grain Oilseed Or Pasture Grower Relationship Specialty Start Date End Date Nilam Henry MD [address] [place] [address] PCP - General Family Medicine 02/26/19
--- OUTSIDE RECORDS SUMMARY | 2024-05-18 17:39 | XMS_ITS | Continuity of Care Document ---
Author Organization [place] - [facility], Allergy Address [address] [place] [phone] Care Team Providers Care Punch Press Setter Name Role Phone SINCERE VALLE Primary Care Provider [phone] Assessment Encounter Date Assessment Date Assessment LastModified [...] Organization Details Last Modified Time Details Appointments [facility]- Allergy f-up 6mon 2024 09:30A M [...] Address Organization Details Recorded Time Nasal congestion [id number] Active 2023 EMILI MILES MD [address] [place] [address], [address] [place] [facility] 4 14:36:00 Allergic rhinitis 04145972 Active 2023 EMILI MILES MD [address] [place] [address] 100, [facility] [place], [address], [place] [facility] [place] 4 14:36:09 Mild intermittent asthma 942907844 Active 2023 EMILI MILES MD [address] [facility] [place], [facility] [place], [address], [place] [facility] [place] 4 14:36:25 Chronic rhinitis 90559116 Active 2023 EMILI MILES MD [address] [facility] [place], [facility] [place], [address], [place] [facility] [place] 4 08:53:38 Perennial allergic rhinitis 754374975 Active 2023 ALMA AHN, RMA [address] [facility] [place], [facility] [place], [address], [place] [facility] [place] 4 09:37:53 Problem Notes None recorded. Procedures Surgical History Date Name Laterality Status Provider Name and Address Organization Details Recorded Time 05/15/19 25 Allergy Immunotherapy Injections completed ALMA AHN [facility] [address] [facility] [place] [address] [place] [address], [address], [facility] - [facility] [place] 05/14/2024 14:40:25 05/07/19 25 Allergy Immunotherapy Injections completed BECCA EVANS RN [address] [facility] [place],[address], [address], [facility] - [facility] [place] 05/07/2024 11:12:00 04/27/19 25 Allergy Immunotherapy Injections completed BECCA EVANS RN 100 [facility],[place] [address], [address], [facility] - [facility] [place] 04/27/2024 13:26:05 04/23/19 25 Allergy Immunotherapy Injections completed ALMA AHN, RMA [address],[place] [address], [address], [facility] - [facility] [place] 04/23/2024 10:51:49 04/16/19 25 Allergy Immunotherapy Injections completed ALMA AHN RMA [address],[place] [address], [place], [address], [place] [facility] [place] 04/16/2024 12:50:47 04/09/19 25 Allergy Immunotherapy Injections completed BECCA EVANS RN [address],[place] [address], [place], [address], [place] [facility] 04/09/2024 09:50:33 04/02/19 25 Allergy Immunotherapy Injections completed BECCA EVANS RN [address],[place] [address], [place], [address], [place] [facility] 04/02/2024 10:46:40 03/26/19 25 Allergy Immunotherapy Injections completed ALMA AHN RMA [address],[place] [address], [address], [place] [facility] [place] 03/26/2024 10:16:19 03/16/19 25 Allergy Immunotherapy Injections completed KM ACE [address],[place] [address] [place] [address], [address], [place] [facility] [place] 03/16/2024 12:04:12 03/09/20 24 Allergy Immunotherapy Injections completed KM ACE [address],[place] [address] [place] [address], [address], [place] [facility] [place] 03/09/2024 10:26:16 03/02/20 24 Allergy Immunotherapy Injections completed MAMIE ACEA [address],[place] [address], [address], [place] [facility] [place] 03/02/2024 12:04:34 02/24/20 24 Allergy Immunotherapy Injections completed ALMA AHN RMA [address],[place] [address], [address], [place] [facility] [place] 02/24/2024 11:20:06 02/16/20 24 Allergy Immunotherapy Injections completed ALMA AHN, RMA [address],[place] [address], [place], [address], [place] [facility] 02/16/2024 09:38:03 01/02/20 24 Allergy Testing-Full completed ALMA AHN, RMA [address],[facility] 100, [place], [address], [place] [facility] 01/02/2024 14:13:04 12/05/19 24 JMSNasal/Sinus Endoscopy completed EMILI ELMORE MD 100 [facility] 100, [place], [address], [facility] - [facility] 12/05/2023 14:35:53 Imaging Results None recorded. [...] azelastine 137 mcg (0.1 %) nasal spray [place] 2 sprays twice a day by intranasa [...] Disorder N Anesthesia Complications N Heart Attack ([place]) N Other Skin Condition N Diabetes N [...] SNOMED-CT Code Diagnosis ICD10 Code Diagnosis Note [id number] K[facility] BRADLEY [facility] [address] [place] [address] 03/26/2024 10:15:02 03/26/2024 10:17:04 Perennial allergic rhinitis 915228328 J30.89 Patient presents to begin immunother apy injections . Reviewed injection hours, importance of compliance and of reporting any changes in medication s. Also reviewed importance of reporting any local reactions to immunother apy injections . For patients of child bearing age, reviewed importance of reporting . Follow up with MD made in 6 months. [id number] BECCA EVANS RN Allergy [address] [place] [address] 04/02/2024 10:45:59 04/02/2024 11:00:20 Perennial allergic rhinitis 317963036 J30.89 [id number] BECCA EVANS RN Allergy [address] [place] [address] 04/09/2024 09:47:25 04/09/2024 09:51:32 Perennial allergic rhinitis [id number] J30.89 [id number] ALMA AHN [facility] Allergy [address] [place] [address] [address] [place] [address] 04/16/2024 12:49:55 04/16/2024 12:51:18 Perennial allergic rhinitis 141350984 J30.89 Patient presents to begin immunother apy injections . Reviewed injection hours, importance of compliance and of reporting any changes in medication s. Also reviewed importance of reporting any local reactions to immunother apy injections . For patients of child bearing age, reviewed importance of reporting . Follow up with MD made in 6 months. [id number] [facility] 100 [facility], ite 100 [facility] [place] [address] 04/23/2024 10:51:04 04/23/2024 11:09:05 Perennial allergic rhinitis [id number] J30.89 Patient presents to begin immunother apy [...] Pardo Member ID Guarantor Name 04/23/2024 1 [place] [facility] Venkata Fabian [id number] Venkata Melara 04/23/2024 2 [place] [facility] (MEDICAID) Venkata Fabian [id number] Venkata Melara OBGyn Episode No OBEpisode recorded.
--- OUTSIDE RECORDS SUMMARY | 2024-05-18 17:39 | XMS_ITS | Encounter Summary ---
Author Organization [employer] Address [address] [place] [address] Care Team Providers Care Registered Land Surveyor Name Role Phone Nilam Henry MD Primary Care Provide r Encounter Details Date Type Department Care Team (Late st Contact Info) Description 05/17/2024 Orders Only [facility] [address] [place] [address] Nilam Henry MD [address] [place] [address] Possible exposure to STI (Primary Dx) Social History Tobacco Use Types [...] as of this encounter Plan of Treatment Scheduled Orders Name Type Priority Associated Diagnoses Orde r Schedule HIV-1/2 Antigen and Antibodies, Fourth Generation, with Reflexes Lab Routine Possible exposure to STI Expected: 05/17/2024 (Approximate), Expires: 05/17/2025 Hepatitis B Surface Antibody, Qualitative Lab Routine Possible exposure to STI Expected: 05/17/2024 (Approximate), Expires: 05/17/2025 Hepatitis B surface antigen, EIA Lab Routine Possible exposure to STI Expected: 05/17/2024 (Approximate), Expires: 05/17/2025 Hepatitis C Antibody with Reflex to HCV, RNA, Quantitative, Real-Time PCR Lab Routine Possible exposure to STI Expected: 05/17/2024, Expires: 05/17/2025 RPR (Monitor) with Reflex to??Titer Lab Routine Possible exposure to STI Expected: 05/17/2024, Expires: 05/17/2025 Chlamydia/N. Gonorrhoeae RNA, TMA, Urogenitial Microbiology Routine Possible exposure to STI Expected: 05/17/2024 (Approximate), Expires: 05/17/2025 documented as of this encounter Visit Diagnoses Diagnosis Possible exposure to STI- Primary documented in this encounter Additional Health Concerns Assessment Noted Time PHQ-9 Depression Total Score: 12 024 11:11 AM EDT documented as of this encounter Care Teams Registered Land Surveyor Relationship Specialty Start Date End Date Nilam Henry MD [address] [place] [address] PCP - General Family Medicine 02/26/19 documented as of this encounter
--- OUTSIDE RECORDS SUMMARY | 2024-05-18 17:40 | XMS_ITS | Continuity of Care Document ---
Author Organization [place] - [facility], Allergy Address [address] [place] [address] Care Team Providers Care Banquet Lead Name Role Phone SINCERE VALLE Primary Care Provider Assessment Encounter Date Assessment Date Assessment LastModified by Organization Details LastModified Time 05/14/2024 05/14/2024 Visit With: Michelle Malhotra Use of Antihistamine s: Yes If yes: Vial Test Change in medications: No If yes ? ? ? Increase in asthma symptoms If yes, inhaler use: Reaction to last injections: No If yes: ? ? ? Allergy Symptoms: Other: ? ? ? Missed: Dose Aware of Vial Test Notes:? ? ? [email or web address] Not available 05/14/2024 14:40:45 Plan of Treatment Reminders Order Date Submit Date Provider Last Modified By Organization Details Last Modified Time Details Appointments [facility]- Allergy f-up 6mon 2024 09:30A M [...] Address Organization Details Recorded Time Nasal congestion 16795016 Active 2023 EMILI MILES MD [address] [place] [address], [phone] [place] - [facility] 14:36:00 Allergic rhinitis 37672594 Active 2023 EMILI MILES MD [address] [place] [address], [address], [place] - [facility] [place] 4 14:36:09 Mild intermittent asthma 097620090 Active 2023 EMILI MILES MD [address] [facility], [facility] [place], [address], [place] [facility] [place] 4 14:36:25 Chronic rhinitis 28794865 Active 2023 EMILI MILES MD 100 [facility],[address], [facility] [place], [address], [place] [facility] [place] 4 08:53:38 Perennial allergic rhinitis 042969121 Active 2023 ALMA AHN, [facility] [address] [facility], [place], [address], [place] [facility] [place] 4 09:37:53 Problem Notes None recorded. Procedures Surgical History Date Name Laterality Status Provider Name and Address Organization Details Recorded Time 05/15/19 25 Allergy Immunotherapy Injections completed ALMA AHN [facility],[address], [address], [facility] - [facility] [place] 05/14/2024 14:40:25 05/07/19 25 Allergy Immunotherapy Injections completed BECCA EVANS RN [address] [facility],[address], [address], [facility] - [facility] [place] 05/07/2024 11:12:00 04/27/19 25 Allergy Immunotherapy Injections completed BECCA EVANS RN [address] [facility],[place] [facility], [place], [address], [facility] - [facility] [place] 04/27/2024 13:26:05 04/23/19 25 Allergy Immunotherapy Injections completed ALMA AHN RMA [address] [facility],[place] [address], [place], [address], [facility] - [facility] [place] 04/23/2024 10:51:49 04/16/19 25 Allergy Immunotherapy Injections completed ALMA AHN RMA [address] [facility],[place] [address], [place], [address], [place] [facility] [place] 04/16/2024 12:50:47 04/09/19 25 Allergy Immunotherapy Injections completed BECCA EVANS RN [address] [facility],[place] [address] [place] [address], [address], [place] [facility] [place] 04/09/2024 09:50:33 04/02/19 25 Allergy Immunotherapy Injections completed BECCA EVANS RN [address] [facility] [address],[place] [address], [place], [address], [place] [facility] [place] 04/02/2024 10:46:40 03/26/19 25 Allergy Immunotherapy Injections completed ALMA AHN RMA [address] [facility] [address],[place] [address] [place] [address], [address], [place] [facility] 03/26/2024 10:16:19 03/16/19 25 Allergy Immunotherapy Injections completed KM ACE [address] [facility] [address],[place] [address] [place] [address], [address], [place] [facility] 03/16/2024 12:04:12 03/09/20 24 Allergy Immunotherapy Injections completed KM ACE [address] [facility],[place] [address] [place] [address], [address], [place] [facility] 03/09/2024 10:26:16 03/02/20 24 Allergy Immunotherapy Injections completed MICHELLE MALHOTRA RMA [address] [facility] [address] [facility],[place] [address] [place] [address], [address], [place] [facility] [place] 03/02/2024 12:04:34 02/24/20 24 Allergy Immunotherapy Injections completed ALMA AHN RMA [address],[place] [address], [place], [address], [place] [facility] 02/24/2024 11:20:06 02/16/20 24 Allergy Immunotherapy Injections completed ALMA AHN, RMA [address],[place] [address], [place], [address], [place] [facility] [place] 02/16/2024 09:38:03 01/02/20 24 Allergy Testing-Full completed ALMA AHN, RMA [address],[place] [address], [place], [address], [facility] - [facility] 01/02/2024 14:13:04 12/05/19 24 JMSNasal/Sinus Endoscopy completed EMILI ELMORE MD [address] [facility] 100, [place], [address], [facility] - [facility] 12/05/2023 14:35:53 Imaging Results None recorded. Procedure [...] azelastine 137 mcg (0.1 %) nasal spray [place] 2 sprays twice a day by intranasa [...] History Nothing Reported. Medical History Condition Response Tonsil Infections N Emphysema N Glaucoma N Depression Y COPD N Nasal or Sinus Problems Y Anesthesia Complications N Arthritis N Hearing Loss N Cancer N Stroke N High Cholesterol Y Liver Disease N Headaches Y Fibromyalgia N Speech Delay N Kidney Disease N Allergies/Hayfever Y Heart Problems N Anxiety Y Migraines N Thyroid Problems N Developmental Delay N Anemia N Immune System Disorder N Heart Attack ([place]) N Other Skin Condition N Diabetes N Rhinitis N Bleeding Disorder N Food Allergy N Hyperlipidemia N Dementia N Nasal polyps N Asthma Y Sleep Disorder Y GERD/Reflux N Hypertension Y Gynecological HistoryNo gynecological history recorded. Obstetrics History GPAL:G 0 P 0 0 0 0 Past Encounters Encounter ID Performer Location Encounter Start Date Encounter Closed Date Diagnosis/Indication Diagnosis SNOMED-CT Code Diagnosis ICD10 Code Diagnosis Note [id number] KM MATIAS [facility] [address] [place] [address] it 100 [place] [address] 04/16/2024 12:49:55 04/16/2024 12:51:18 Perennial allergic rhinitis 274125799 J30.89 Patient presents to begin immunother apy injections . Reviewed injection hours, importance of compliance and of reporting any changes in medication s. Also reviewed importance of reporting any local reactions to immunother apy injections . For patients of child bearing age, reviewed importance of reporting . Follow up with MD made in 6 months. [id number] KM MATIAS [facility] [address] [place] [address] it 100 [place] [address] 04/23/2024 10:51:04 04/23/2024 11:09:05 Perennial allergic rhinitis 513190536 J30.89 Patient presents to begin immunother apy injections . Reviewed injection hours, importance of compliance and of reporting any changes in medication s. Also reviewed importance of reporting any local reactions to immunother apy injections . For patients of child bearing age, reviewed importance of reporting . Follow up with MD made in 6 months. [id number] BECCA EVANS RN Allergy [address] [place] [address],[place] [address] 100 [place] [address] 04/27/2024 13:25:28 04/27/2024 13:26:35 Perennial allergic rhinitis 113461666 J30.89 [id number] BECCA EVANS RN Allergy [address] [place] [address],[place] [address] 100 [place] [address] 05/07/2024 11:11:07 05/07/2024 11:12:27 Perennial allergic rhinitis 050341218 J30.89 Patient presents to begin immunother apy injections . Reviewed injection hours, importance of compliance and of reporting any changes in medication s. Also reviewed importance of reporting any local reactions to immunother apy injections . For patients of child bearing age, reviewed importance of reporting . Follow up with MD made in 6 months. [id number] ALMA AHN [facility] [address] [place] [address] [place] B[place]O [address] 05/14/2024 14:37:59 05/14/2024 14:41:12 Perennial allergic rhinitis 888508349 J30.89 Health Concerns Section Related Observation LastModified by Organization Detai ls LastModified Time None Recorded Concern Status LastModified by Organization Details LastModified Time None Recorded Payers Encounter Date Sequence Insurance Name Policy Number Policy Pardo Covered Member ID Pardo Member ID Guarantor Name 05/14/2024 1 [place] [facility] Venkata Fabian [id number] Venkata Melara 05/14/2024 2 [place] [facility] (MEDICAID) Venkata Fabian [id number] Venkata Melara OBGyn Episode No OBEpisode recorded.
--- OUTSIDE RECORDS SUMMARY | 2024-05-18 17:40 | XMS_ITS | Continuity of Care Document ---
Author Organization [place] - [facility], Allergy Address [address] [place] [address] Care Team Providers Care Emergency Medical Technician Name Role Phone SINCERE VALLE Primary Care [...] Organization Details Last Modified Time Details Appointments [facility]- Allergy f-up 6mon 2024 09:30A M [...] Address Organization Details Recorded Time Nasal congestion 79674923 Active 2023 EMILI MILES MD [address] [place] [address], [address] [place] [facility] 4 14:36:00 Allergic rhinitis 15808663 Active 2023 EMILI MILES MD [address] [place] [address] 100, [facility] [place], [address], [place] [facility] 4 14:36:09 Mild intermittent asthma 331481635 Active 2023 EMILI MILES MD 100 [facility], [facility] [place], [address], [place] [facility] [place] 4 14:36:25 Chronic rhinitis 18117075 Active 2023 EMILI MILES MD 100 [facility], [place], [address], [place] [facility] [place] 4 08:53:38 Perennial allergic rhinitis 209863338 Active 2023 ALMA AHN, RMA 100 [facility], [facility] [place], [address], [place] [facility] [place] 4 09:37:53 Problem Notes None recorded. Procedures Surgical History Date Name Laterality Status Provider Name and Address Organization Details Recorded Time 05/15/19 25 Allergy Immunotherapy Injections completed ALMA AHN [facility] 100 [facility],[place] [address] [place] [address], [address], [facility] - [facility] [place] 05/14/2024 14:40:25 05/07/19 25 Allergy Immunotherapy Injections completed BECCA EVANS RN 100 [facility],[address], [address], [facility] - [facility] [place] 05/07/2024 11:12:00 04/27/19 25 Allergy Immunotherapy Injections completed BECCA VEANS RN 100 [facility],[place] [address], [address], [facility] - [facility] [place] 04/27/2024 13:26:05 04/23/19 25 Allergy Immunotherapy Injections completed ALMA AHN, RMA [address],[place] [address], [address], [facility] - [facility] [place] 04/23/2024 10:51:49 04/16/19 25 Allergy Immunotherapy Injections completed ALMA AHN RMA [address],[place] [address], [place], [address], [place] [facility] 04/16/2024 12:50:47 04/09/19 25 Allergy Immunotherapy Injections completed BECCA EVANS RN [address],[place] [address], [place], [address], [place] [facility] 04/09/2024 09:50:33 04/02/19 25 Allergy Immunotherapy Injections completed BECCA EVANS RN [address],[place] [address], [place], [address], [place] [facility] 04/02/2024 10:46:40 03/26/19 25 Allergy Immunotherapy Injections completed ALMA AHN RMA [address] [facility] [address],[place], [address], [place] [facility] 03/26/2024 10:16:19 03/16/19 25 Allergy Immunotherapy Injections completed KM ACE [address],[place] [address] [place] [address], [address], [place] [facility] 03/16/2024 12:04:12 03/09/20 24 Allergy Immunotherapy Injections completed KM ACE [address],[place] [address] [place] [address], [address], [place] [facility] 03/09/2024 10:26:16 03/02/20 24 Allergy Immunotherapy Injections completed MAMIE ACEA [address],[place] [address], [address], [place] [facility] 03/02/2024 12:04:34 02/24/20 24 Allergy Immunotherapy Injections completed ALMA AHN RMA [address],[place] [address], [address], [place] [facility] 02/24/2024 11:20:06 02/16/20 24 Allergy Immunotherapy Injections completed ALMA AHN, RMA [address], [place], [address], [place] [facility] 02/16/2024 09:38:03 01/02/20 24 Allergy Testing-Full completed ALMA AHN, RMA [address],[facility] 100, [place], [address], [place] [facility] 01/02/2024 14:13:04 12/05/19 24 JMSNasal/Sinus Endoscopy completed EMILI ELMORE MD 100 [facility] 100, [place], [address], [facility] - [facility] [...] azelastine 137 mcg (0.1 %) nasal spray [place] 2 sprays twice a day by intranasa [...] Disorder N Anesthesia Complications N Heart Attack (AR) N Other Skin Condition N Diabetes N [...] SNOMED-CT Code Diagnosis ICD10 Code Diagnosis Note [id number] BECCA EVANS RN Allergy [address] [place] [address], it[address] 100 [place] [address] 04/09/2024 09:47:25 04/09/2024 09:51:32 Perennial allergic rhinitis [id number] J30.89 [id number] ALMA PAPPAS [facility] Allergy [address] [place] [address] it[address] 100 [place] [address] 04/16/2024 12:49:55 04/16/2024 12:51:18 Perennial allergic rhinitis 808846354 J30.89 Patient presents to begin immunother apy injections . Reviewed injection hours, importance of compliance and of reporting any changes in medication s. Also reviewed importance of reporting any local reactions to immunother apy injections . For patients of child bearing age, reviewed importance of reporting . Follow up with MD made in 6 months. [id number] ALMA PAPPAS [facility] Allergy [address] [place] [address], it[address] 100 [place] [address] 04/23/2024 10:51:04 04/23/2024 11:09:05 Perennial allergic rhinitis 721667870 J30.89 Patient presents to begin immunother apy injections . Reviewed injection hours, importance of compliance and of reporting any changes in medication s. Also reviewed importance of reporting any local reactions to immunother apy injections . For patients of child bearing age, reviewed importance of reporting . Follow up with MD made in 6 months. [id number] BECCA EVANS RN Allergy [address] [place] [address],[place] [address] [place] [address] 04/27/2024 13:25:28 04/27/2024 13:26:35 Perennial allergic rhinitis [id number] J30.89 [id number] BECCA EVANS RN Allergy [address] [place] [address] 100 [place] [address] 05/07/2024 11:11:07 05/07/2024 11:12:27 Perennial allergic rhinitis [id number] J30.89 Patient presents to begin immunother apy [...] Pardo Member ID Guarantor Name 05/07/2024 1 [place] [facility] Venkata Fabian [id number] Venkata Melara 05/07/2024 2 [place] [facility] (MEDICAID) Venkata Fabian [id number] Venkata Melara OBGyn Episode No OBEpisode recorded.
--- OUTSIDE RECORDS SUMMARY | 2024-05-18 17:40 | XMS_ITS | Encounter Summary ---
Author Organization [employer] Address [address] [facility] [address] [place] [address] Care Team Providers Care Radiation Therapist Name Role Phone Nilam Henry MD Primary Care Provide r Reason for Visit * Reason Comments Med Refill Encounter Details Date Type Department Care Team (Late st Contact Info) Description 07/15/2023 Refill [facility] MEDICINE [address] [place] [address] Nilam Henry MD [address] [place] [address] Essential hypertension Social History Tobacco Use Types [...] documented as of this encounter Care Teams Radiation Therapist Relationship Specialty Start Date End Date Nilam Henry MD [address] [place] [address] PCP - General Family Medicine 02/26/19 documented as of this encounter
--- OUTSIDE RECORDS SUMMARY | 2024-05-18 17:40 | XMS_ITS | Encounter Summary ---
Author Organization [facility] Address [address] [facility] [place] [address] Care Team Providers Care Operations Officer Afloat Name Role Phone Nilam Henry MD Primary Care Provide r Encounter Details Date Type Department Care Team (Latest Contact Info) Description 10/30/2018 Abstract [facility] CONVERSIONS Dental, Provider, DDS Social History [...] on filedocumented in this encounter Care Teams Operations Officer Afloat Relationship Specialty Start Date End Date Nilam Henry MD [address] [place] [address] PCP - General Family Medicine 02/26/19 documented as of this encounter
--- OUTSIDE RECORDS SUMMARY | 2024-05-18 17:40 | XMS_ITS | Encounter Summary ---
Author Organization [facility] [facility] Address [address] [place] [address] Care Team Providers Care Mechanical Product Design Engineer Name Role Phone Nilam Henry MD Primary Care Provide r Encounter Details Date Type Department Care Team (Late st Contact Info) Description 02/05/2023 Abstract [facility] MEDICINE [address] [place] [address] Nilam Henry MD [address] [place] [address] Social History Tobacco Use Types Packs/Day Years [...] documented as of this encounter Care Teams Mechanical Product Design Engineer Relationship Specialty Start Date End Date Nilam Henry MD [address] [place] [address] PCP - General Family Medicine 02/26/19 documented as of this encounter
[2024-05-19 04:11] LABS: HBS Num1 1.47 mIU/mL (0-7.99); HBsAGNum1 0.22 S/CO (0.00-0.99); HIV AB/AG Nonreactive (Nonreactive); HIV Num 1 0.05 S/CO (0.00-0.99); Hepatitis B Surface Antigen Negative (Negative); ~HepC Num1 0.24 S/CO (0.00-0.79); ~Hepatitis B Surface Antibody NONREACTIVE (Nonreactive); ~Hepatitis C Antibody Nonreactive (Nonreactive)
[2024-05-19 11:47] LABS: RPR Rapid Plasma Reagin NON-REACTIVE (NON-REACTIVE)
== END 2024-05-18 14:22 | disposition home or self-care (01) ==
LOC: HO.LAB 14:21
PROVIDERS: PCP Internal Medicine; Visit Provider Internal Medicine
DX: Z20.2 Contact with and (suspected) exposure to infections with a predominantly sexual mode of transmission (principal)
CPT/HCPCS: 36415; 86592; 86706; 86803; 87340; 87389

== ENCOUNTER 2024-08-30 15:26 | Outpatient (REF) | payer MEDICAID, SELFPAY ==
--- NOTE | ~2024-08-30 | MM_ITS ---
EXAMINATION: MM SCREENING DIGITAL BREAST TOMOSYNTHESIS, BILATERAL CLINICAL INFORMATION: Screening. Asymptomatic. COMPARISON: Mammography: Comparison is made with available priors TECHNIQUE: Digital breast mammography with tomosynthesis is performed in both the craniocaudal and mediolateral oblique views along with computer-aided detection (CAD). FINDINGS: The breasts are heterogeneously dense, which may obscure small masses (ACR BI-RADS breast composition Category c). There are no significant masses, abnormal calcifications, or other abnormalities. MM/MM tomosynthesis screening BI IMPRESSION: No mammographic evidence of malignancy. ASSESSMENT: BI-RADS BI-RADS 1 - Negative RECOMMENDATION: Routine annual mammography screening. 1 year F/U This examination should not preclude the clinical evaluation of a suspicious palpable abnormality. This patient's information was entered into a reminder system with a target due date for their next mammogram. Electronically signed by: Claudia Alanis DO 09/03/2024 03:20 PM EDT
--- OUTSIDE RECORDS SUMMARY | 2024-08-30 16:57 | XMS_ITS | Continuity of Care Document ---
Author Organization [place] - 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 [email or web address] Not available 08/27/2024 09:30:16 Plan of Treatment Reminders Order Date Submit Date Provider Last Modified By Organization Details Last Modified Time Details Appointments [facility]- Allergy f-up 6mon 2024 10:30A M EMILI MILES MD Not available Not [...] Address Organization Details Recorded Time Nasal congestion 88566627 Active 2023 EMILI MILES MD 100 [facility],[address], [address] [place] - [facility] 14:36:00 Allergic rhinitis 11166005 Active 2023 EMILI MILES MD [address] [place] [address] [place],[address], [place], [address], [place] - [facility] [place] 4 14:36:09 Mild intermittent asthma 356376073 Active 2023 EMILI MILES MD [facility] [place], [facility] [place], [address], [place] [facility] [place] 4 14:36:25 Chronic rhinitis 72530141 Active 2023 EMILI MILES MD [address] [facility] [place],[address], [place], [address], [place] [facility] [place] 4 08:53:38 Perennial allergic rhinitis 834648036 Active 2023 [facility] [place],[address], [facility] [place], [address], [place] [facility] [place] 09:37:53 Problem Notes None recorded. Procedures Surgical History Date Name Laterality Status Provider Name and Address Organization Details Recorded Time 08/28/19 25 Allergy Immunotherapy Injections completed KM ACE 100 [facility],[address], [address], [place] [facility] [place] 08/27/2024 09:30:02 08/21/19 25 Allergy Immunotherapy Injections completed BECCA EVANS RN 100 [facility],[address], [address], [place] [facility] [place] 08/20/2024 09:55:59 08/14/19 25 Allergy Immunotherapy Injections completed BECCA EVANS RN 100 [facility],[address], [address], [place] [facility] [place] 08/13/2024 10:22:32 08/07/19 25 Allergy Immunotherapy Injections completed BECCA EVANS RN 100 [facility],[place] [address] [place] [address], [address], [place] [facility] [place] 08/06/2024 09:54:17 07/31/19 25 Allergy Immunotherapy Injections completed KM ACE [address],[place] [address], [address], [place] [facility] [place] 07/30/2024 11:03:33 07/24/19 25 Allergy Immunotherapy Injections completed KM ACE [address],[place] [address] [place] [address], [address], [place] [facility] [place] 07/23/2024 10:43:37 07/10/19 25 Allergy Immunotherapy Injections completed BECCA EVANS RN 100 [facility] [place] [address] [place] [address], [address], [place] [facility] [place] 07/09/2024 11:36:13 07/03/19 25 Allergy Immunotherapy Injections completed BECCA EVANS RN 100 [facility] [place] [address] [place] [address], [address], [place] [facility] [place] 07/02/2024 10:57:37 06/26/19 25 Allergy Immunotherapy Injections completed BECCA EVANS RN 100 [facility],[place] [address] [place] [address], [address], [place] [facility] [place] 06/25/2024 09:50:15 06/19/19 25 Allergy Immunotherapy Injections completed KM ACE [address] [facility] [place] [address] [place] [address], [address], [place] [facility] [place] 06/18/2024 09:35:42 06/12/19 25 Allergy Immunotherapy Injections completed KM MATIAS [address] [facility] [place] [address] [place] [address], [address], [place] [facility] [place] 06/11/2024 13:25:19 06/05/19 25 Allergy Immunotherapy Injections completed BECCA EVANS RN [address] [facility] [place] [address] [place] [address], [address], [place] [facility] [place] 06/04/2024 13:12:38 05/29/19 25 Allergy Immunotherapy Injections completed KM MATIAS [address],[place] [address] [place] [address], [address], [place] [facility] [place] 05/28/2024 09:47:02 05/22/19 25 Allergy Immunotherapy Injections completed KM ACE [address] [address], [address], [place] [facility] [place] 05/21/2024 11:50:38 05/15/19 25 Allergy Immunotherapy Injections completed ALMA AHN RMA [address] [address], [address], [place] [facility] [place] 05/14/2024 14:40:25 05/07/19 25 Allergy Immunotherapy Injections completed BECCA EVANS RN [address], [address], [place] [facility] [place] 05/07/2024 11:12:00 04/27/19 25 Allergy Immunotherapy Injections completed BECCA EVANS RN [address],[place] [address] [place] [address], [address], [place] [facility] [place] 04/27/2024 13:26:05 04/23/19 25 Allergy Immunotherapy Injections completed ALMA AHN RMDarlin [address],[place] [address] [place] [address], [address], [place] [facility] [place] 04/23/2024 10:51:49 04/16/19 25 Allergy Immunotherapy Injections completed ALMA AHN RMA [address], [address], [place] [facility] [place] 04/16/2024 12:50:47 04/09/19 25 Allergy Immunotherapy Injections completed BECCA EVANS RN [address],[place] [address] [place] [address], [address], [place] [facility] [place] 04/09/2024 09:50:33 04/02/19 25 Allergy Immunotherapy Injections completed BECCA EVANS RN [address],[place] [address] [place] [address], [address], [place] [facility] [place] 04/02/2024 10:46:40 03/26/19 25 Allergy Immunotherapy Injections completed ALMA AHN RMDarlin [address], [address], [place] [facility] [place] 03/26/2024 10:16:19 03/16/19 25 Allergy Immunotherapy Injections completed MARITA HARTLEY KM [address], [place], [address], [facility] [facility] - [facility] 03/16/2024 12:04:12 03/09/20 24 Allergy Immunotherapy Injections completed MARITA HARTLEY KM [address], [place], [address], [facility] - [facility] 03/09/2024 10:26:16 03/02/20 24 Allergy Immunotherapy Injections completed MARITA HARTLEY KM [address], [place], [address], [facility] [facility] - [facility] 03/02/2024 12:04:34 02/24/20 24 Allergy Immunotherapy Injections completed ALMA AHN KM [address],[place] [facility], [place], [address], [facility] [facility] - [facility] 02/24/2024 11:20:06 02/16/20 24 Allergy Immunotherapy Injections completed ALMA AHN A [address] [facility] [place] [address] [place] [address], [address], [facility] [facility] - [facility] 02/16/2024 09:38:03 01/02/20 24 Allergy Testing-Full completed ALMA AHN [facility] [address] [facility] [place] [facility], [place], [address], [facility] 01/02/2024 14:13:04 12/05/19 24 JMSNasal/Sinus Endoscopy completed EMILI ELMORE MD 100 [facility] [place] [address] [place] [address], [address], [facility] - [facility] 12/05/2023 14:35:53 Imaging Results None recorded. [...] Not Available Not Available No t Available valacyclovi r 1 gram tablet TAKE 1 TABLET BY MOUTH TWICE A DAY FOR 7 DAYS active Not Available Not Available No t Available amlodipine 2.5 mg tablet TAKE 1 TABLET BY MOUTH EVERY DAY active Not Available Not Available No t Available montelukast 10 mg tablet TAKE 1 TABLET BY MOUTH EVERY DAY 2024 active Not Available Not Available Not Avai lable hydrochloro thiazide 25 mg tablet TAKE 1 TABLET BY MOUTH EVERY DAY IN THE MORNING active Not Available Not Available No t Available azelastine 137 mcg (0.1 %) nasal spray [place] 2 sprays twice a day by intranasa l route for 30 days. active Not Available Not Available No t Available epinephrine 0.3 mg/0.3 mL injection, auto-inject or Take 1 auto by injection route for 180 days, for anaphylax is. active Not Available Not Available No t Available doxycycline hyclate 100 mg tablet TAKE 1 TABLET BY MOUTH 2 TIMES DAILY FOR 14 DAYS WITH GLASS OF WATER AND DO NOT LIE DOWN FOR 30 MINS active Not Available Not Available No t [...] Disorder N Anesthesia Complications N Heart Attack (SD) N Other Skin Condition N Diabetes N [...] SNOMED-CT Code Diagnosis ICD10 Code Diagnosis Note [id number] KM ACE Allergy [address] [place] [address], it 100 [facility] [address] 07/30/2024 11:02:51 07/30/2024 11:18:51 Perennial allergic rhinitis 132199637 J30.89 [id number] BECCA EVANS RN Allergy [address] [place] [address],[facility] 100 [place] [address] 08/06/2024 09:53:14 08/06/2024 09:54:39 Perennial allergic rhinitis [id number] J30.89 [id number] BECCA EVANS RN Allergy [address] [place] [address], it 100 [place] [address] 08/13/2024 10:21:45 08/13/2024 10:22:52 Perennial allergic rhinitis 459154708 J30.89 48041 KM ACE Allergy [address] [place] [address],[facility] 100 [place] [address] 08/20/2024 09:53:21 08/20/2024 09:56:52 Perennial allergic rhinitis 532183012 J30.89 [id number] BECCA EVANS RN Allergy [address] [place] [address],[facility] 100 [place] [address] 08/27/2024 09:29:25 08/27/2024 09:30:47 Perennial allergic rhinitis [id number] J30.89 Health Concerns Section Related Observation LastModified by Organization Detai ls LastModified Time None Recorded Concern Status LastModified by Organization Details LastModified Time None Recorded Payers Encounter Date Sequence Insurance Name Policy Number Policy Pardo Covered Member ID Pardo Member ID Guarantor Name 08/27/2024 1 [place]: [facility] Venkata Fabian [id number] Venkata Melara OBGyn Episode No OBEpisode recorded.
== END 2024-08-30 15:27 | disposition home or self-care (01) ==
LOC: HO.MAMMO 15:26
PROVIDERS: PCP Internal Medicine; Visit Provider Internal Medicine
DX: Z12.31 Encounter for screening mammogram for malignant neoplasm of breast (principal)
CPT/HCPCS: 77063; 77067

== ENCOUNTER → 2024-08-30 15:30 | Outpatient (BNV) | payer MEDICAID, SELFPAY | PROVIDERS: PCP Internal Medicine; Visit Provider Internal Medicine | DX: Z12.31 Encounter for screening mammogram for malignant neoplasm of breast (principal) | CPT/HCPCS: 77063; 77067 ==

== ENCOUNTER 2025-01-08 08:52 | Outpatient (REF) | payer OTHER, SELFPAY ==
--- OUTSIDE RECORDS SUMMARY | 2025-01-08 08:55 | XMS_ITS | Continuity of Care Document ---
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 Role Phone SINCERE VALLE Primary Care Provider [phone] Assessment Encounter Date Assessment Date Assessment LastModified by Organization Details LastModified Time 01/07/2025 01/07/2025 Visit With: Use of Antihistamine s: If yes: Vial Test Change in medications: If yes Increase in asthma symptoms If yes, inhaler use: Reaction to last injections: If yes: Allergy Symptoms: Other: Missed: Dose Aware of Vial Test Aware: Notes: [email or web address] Not available 01/07/2025 15:00:03 Plan of Treatment Reminders Order Date Submit Date Provider Last Modified By Organization Details Last Modified Time Details Appointments [facility]- Allergy f-up 6mon 2025 01:30P M AUSTIN MYLES PA-C Not available Not available Not available Lab [...] Address Organization Details Recorded Time Nasal congestion 98354915 Active 2023 EMILI MLIES MD [address] [address], [place], [address], [facility] 4 14:36:00 Allergic rhinitis 59936391 Active 2023 EMILI MILES MD 100 [facility] 100, [place], [address], [place] [facility] [place] 4 14:36:09 Mild intermittent asthma 143649427 Active 2023 EMILI MILES MD [address] [address], [place], [address], [place] [facility] [place] 4 14:36:25 Chronic rhinitis 88620467 Active 2023 EMILI MILES MD [address] [address], [place], [address], [place] [facility] [place] 4 08:53:38 Perennial allergic rhinitis 542131171 Active 2023 Brittany Raji [address] [place] [address], [place], [address], [facility] - [facility] [place] 5 09:55:03 Snoring 28331871 Active 2024 EMILI MILES MD [address] [address], [place], [address], [facility] - [facility] [place] 5 10:54:27 Problem Notes None recorded. Procedures Surgical History Date Name Laterality Status Provider Name and Address Organization Details Recorded Time 01/08/20 25 Allergy Immunotherapy Injections completed BECCA EVANS RN [address], [address], [place] [facility] [place] 01/07/2025 15:04:01 01/01/20 25 [facility] [address] [place] [address],[address], [address], [place] [facility] [place] 12/31/2024 09:47:12 12/25/19 25 Allergy Immunotherapy Injections completed [address], [address], [place] [facility] [place] 12/24/2024 09:35:38 12/18/19 25 Allergy Immunotherapy Injections completed [address], [address], [place] [facility] [place] 12/17/2024 09:55:20 12/11/19 25 Allergy Immunotherapy Injections completed MARITA HARTLEY [facility] [address], [place], [address], [place] [facility] [place] 12/10/2024 09:57:45 12/04/19 25 Allergy Immunotherapy Injections completed Brittany Raji [address], [place], [address], [place] [facility] [place] 12/03/2024 12:55:08 11/27/19 25 Allergy Immunotherapy Injections completed Brittany Raji [address], [place], [address], [place] [facility] [place] 11/26/2024 10:29:21 11/20/19 25 Allergy Immunotherapy Injections completed ALMA AHN A [address], [place], [address], [place] [facility] [place] 11/19/2024 10:23:58 11/13/19 25 Allergy Immunotherapy Injections completed Brittany Alegria [address], [place], [address], [place] [facility] [place] 11/12/2024 09:27:35 11/06/19 25 Allergy Immunotherapy Injections completed BECCA EVANS RN [address],[place] [place] [address], [address], [place] [facility] [place] 11/05/2024 09:31:55 10/29/19 25 Allergy Immunotherapy Injections completed MARITA HARTLEY Darlin [address] [facility] [facility] [address] [place] [place], [place], [address], [place] [facility] [place] 10/28/2024 13:57:02 10/23/19 25 Allergy Immunotherapy Injections completed [facility] Raji [address], [place], [address], [place] [facility] [place] 10/22/2024 11:02:05 10/16/19 25 Allergy Immunotherapy Injections active [facility] Raji [address], [place], [address], [place] [facility] [place] 10/15/2024 10:19:30 09/25/19 25 Allergy Immunotherapy Injections completed ALMA ELYSEC, RMA [address], [place], [address], [place] [facility] [place] 09/24/2024 10:14:53 09/25/19 25 JMSNasal/Sinus Endoscopy completed EMILI Aguilar MD [address], [place], [address], [place] [facility] [place] 09/24/2024 10:53:10 09/18/19 25 Allergy Immunotherapy Injections completed ALMA PAPPASC, RMA [address], [place], [address], [place] [facility] [place] 09/17/2024 09:45:03 09/09/19 25 Allergy Immunotherapy Injections completed ALMA PAPPASC, RMA [address], [place], [address], [place] [facility] [place] 09/08/2024 13:27:11 09/04/19 25 Allergy Immunotherapy Injections completed KM ACE [address],[place] [address] [place] [address], [address], [place] [facility] [place] 09/03/2024 10:33:12 08/28/19 25 Allergy Immunotherapy Injections completed KM ACE [address], [place], [address], [place] [facility] [place] 08/27/2024 09:30:02 08/21/19 25 Allergy Immunotherapy Injections completed BECCA EVANS RN [address],[place] [address] [place] [address], [address], [place] [facility] [place] 08/20/2024 09:55:59 08/14/19 25 Allergy Immunotherapy Injections completed BECCA EVANS RN [address],[place] [address] [place] [address], [address], [place] [facility] [place] 08/13/2024 10:22:32 08/07/19 25 Allergy Immunotherapy Injections completed BECCA EVANS RN 100 [facility] [place] [address] [place] [address], [address], [place] [facility] [place] 08/06/2024 09:54:17 07/31/19 25 Allergy Immunotherapy Injections completed KM ACE [address],[place] [address] [place] [address], [address], [place] [facility] [place] 07/30/2024 11:03:33 07/24/19 25 Allergy Immunotherapy Injections completed KM ACE [address], [place], [address], [place] [facility] [place] 07/23/2024 10:43:37 07/10/19 25 Allergy Immunotherapy Injections completed BECCA EVANS RN [address], [place], [address], [place] [facility] [place] 07/09/2024 11:36:13 07/03/19 25 Allergy Immunotherapy Injections completed BECCA EVANS RN [address],[place] [address] [place] [address], [address], [place] [facility] [place] 07/02/2024 10:57:37 06/26/19 25 Allergy Immunotherapy Injections completed BECCA EVANS RN [address],[place] [address] [place] [address], [address], [place] [facility] [place] 06/25/2024 09:50:15 06/19/19 25 Allergy Immunotherapy Injections completed KM ACE [address], [place], [address], [place] [facility] [place] 06/18/2024 09:35:42 06/12/19 25 Allergy Immunotherapy Injections completed KM MATIAS [address], [place], [address], [place] [facility] [place] 06/11/2024 13:25:19 06/05/19 25 Allergy Immunotherapy Injections completed BECCA EVANS RN [address], [place], [address], [place] [facility] [place] 06/04/2024 13:12:38 05/29/19 25 Allergy Immunotherapy Injections completed KM MATIAS [address], [place], [address], [place] [facility] [place] 05/28/2024 09:47:02 05/22/19 25 Allergy Immunotherapy Injections completed MARITA HARTLEY RMDarlin [address],[place] [address] [place] [address], [address], [place] [facility] [place] 05/21/2024 11:50:38 05/15/19 25 Allergy Immunotherapy Injections completed ALMA AHN, RMA [address], [place], [address], [place] [facility] [place] 05/14/2024 14:40:25 05/07/19 25 Allergy Immunotherapy Injections completed BECCA EVANS RN [address], [place], [address], [place] [facility] [place] 05/07/2024 11:12:00 04/27/19 25 Allergy Immunotherapy Injections completed BECCA EVANS RN [address], [place], [address], [place] [facility] [place] 04/27/2024 13:26:05 04/23/19 25 Allergy Immunotherapy Injections completed ALMA AHN, RMA [address], [place], [address], [place] [facility] [place] 04/23/2024 10:51:49 04/16/19 25 Allergy Immunotherapy Injections completed ALMA AHN, RMA [address],[place] [address] [place] [address], [address], [place] [facility] [place] 04/16/2024 12:50:47 04/09/19 25 Allergy Immunotherapy Injections completed BECCA EVANS RN [address], [place], [address], [place] [facility] [place] 04/09/2024 09:50:33 04/02/19 25 Allergy Immunotherapy Injections completed BECCA EVANS RN [address], [place], [address], [place] [facility] [place] 04/02/2024 10:46:40 03/26/19 25 Allergy Immunotherapy Injections completed ALMA AHN, RMA [address], [place], [address], [place] [facility] 03/26/2024 10:16:19 03/16/19 25 Allergy Immunotherapy Injections completed MARITA HARTLEY RMA [address],[place] [address] [place] [address], [address], [facility] 03/16/2024 12:04:12 03/09/20 24 Allergy Immunotherapy Injections completed MARITA HARTLEY RMA [address], [place], [address], [facility] 03/09/2024 10:26:16 03/02/20 24 Allergy Immunotherapy Injections completed MARITA HARTLEY RMA [address],[place] [address] [place] [address], [address], [facility] 03/02/2024 12:04:34 02/24/20 24 Allergy Immunotherapy Injections completed ALMA AHN, RMA [address],[place] [address] [place] [address], [address], [facility] 02/24/2024 11:20:06 02/16/20 24 Allergy Immunotherapy Injections completed ALMA AHN, RMA [address],[place] [address] [place] [address], [address], [facility] 02/16/2024 09:38:03 01/02/20 24 Allergy Testing-Full completed ALMA AHN, RMA [address],[place] [address] [place] [address], [address], [facility] 01/02/2024 14:13:04 12/05/19 24 JMSNasal/Sinus Endoscopy completed EMILI Aguilar MD [address] [facility] [place] [place] [address] [place] [address], [address], [facility] 12/05/2023 14:35:53 open rhinoseptoplasty completed EMILI Aguilar MD [address],[place] [address] [place] [address], [address], [facility] 09/24/2024 10:52:41 Imaging Results None recorded. Procedure Notes None [...] azelastine 137 mcg (0.1 %) nasal spray SPRAY 2 SPRAYS BY [employer] TWICE A DAY FOR 30 DAYS active Not Available Not Available No [...] Emphysema N Migraines N Thyroid Problems N COPD N Depression Y Developmental Delay N Glaucoma N Nasal or Sinus Problems Y Anemia N Immune System Disorder N Anesthesia Complications N Heart Attack (IN) N Other Skin Condition N Diabetes N Rhinitis N Bleeding Disorder N Food Allergy N Hearing Loss N Arthritis N Hyperlipidemia N Eczema N Cancer N Stroke N Dementia N [...] Diagnosis SNOMED-CT Code Diagnosis ICD10 Code Diagnosis IMO Codes Diagnosis Note [id number] MARITA HARTLEY [facility] [address] [place] [address] 100 [place] [address] 12/10/2024 09:12:12 12/10/2024 09:58:55 Perennial allergic rhinitis 722847348 J30.89 [id number] MARITA HARTLEY [facility] Allergy [address] [place] [address] 100 [place] [address] 12/17/2024 09:36:38 12/17/2024 09:55:51 Perennial allergic rhinitis [id number] J30.89 [id number] [facility] [address] [place] [address] 100 [place] [address] 12/24/2024 09:14:36 12/24/2024 09:36:00 Perennial allergic rhinitis 851776276 J30.89 [id number] [facility] [address] [place] [address] 100 [place] [address] 12/31/2024 09:11:28 12/31/2024 09:47:51 Perennial allergic rhinitis 205964660 J30.89 [id number] BECCA EVANS RN Allergy [address] [place] [address] 100 [place] [address] 01/07/2025 13:42:47 01/07/2025 15:04:19 Perennial allergic rhinitis 393865573 J30.89 Health Concerns Section Related Observation LastModified by Organization Detai ls LastModified Time None Recorded Concern Status LastModified by Organization Details LastModified Time None Recorded Payers Encounter Date Sequence Insurance Name Policy Number Policy Pardo Covered Member ID Pardo Member ID Guarantor Name 01/07/2025 1 [facility] ([facility]) [id number] Venkata Fabian [id number] Venkata Melara OBGyn Episode No OBEpisode recorded.
--- OUTSIDE RECORDS SUMMARY | 2025-01-08 08:55 | XMS_ITS | Data Portability ---
Author Organization [place] - [facility], Allergy Address [address] [place] [phone] Care Team Providers Care Parachute Mender Name Role Phone SINCERE VALLE Primary Care Provider Assessment Encounter Date Assessment Date Assessment LastModified by Organization Details LastModified Time 12/10/2024 12/10/2024 Visit With: Michelle Malhotra Use of Antihistamine s: No If yes: Vial Test Yes Change in medications: No If yes Increase in asthma symptoms If yes, inhaler use: Reaction to last injections: No If yes: Allergy Symptoms: Other: Missed: Dose Aware of Vial Test Aware: Notes: [email or web address] Not available 12/10/2024 09:58:26 12/17/2024 12/17/2024 Visit With: Michelle Malhotra Use of Antihistamine s: No If yes: Vial Test Change in medications: No If yes Increase in asthma symptoms No If yes, inhaler use: Reaction to last injections: No If yes: Allergy Symptoms: Other: Missed: Dose Aware of Vial Test Aware: Notes: [email or web address] Not available 12/17/2024 09:55:32 12/24/2024 12/24/2024 Visit With: Brittany Alegria MA Use of Antihistamine s: Yes If yes: Vial Test Change in medications: No If yes Increase in asthma symptoms No If yes, inhaler use: Reaction to last injections: No If yes: Allergy Symptoms: Other: Missed: Dose Aware of Vial Test Aware: Notes: [email or web address] Not available 12/24/2024 09:34:58 12/31/2024 12/31/2024 Visit With: Brittany Alegria MA Use of Antihistamine s: Yes If yes: Vial Test Change in medications: No If yes Increase in asthma symptoms No If yes, inhaler use: Reaction to last injections: Yes If yes: r-sided redness >25mm Allergy Symptoms: Other: Missed: Dose Decreased Aware of Vial Test Aware: Notes: [email or web address] Not available 12/31/2024 09:47:38 01/07/2025 01/07/2025 Visit With: Use of Antihistamine [...] [facility]- Allergy f-up 6mon 2025 01:30P M [...] Address Organization Details Recorded Time Nasal congestion 68203172 Active 2023 EMILI MILES MD [address] [place] [address], [phone], [facility] 4 14:36:00 Allergic rhinitis 91614958 Active 2023 EMILI MILES MD [address] [place] [address], [address], [facility] 4 14:36:09 Mild intermittent asthma 306728324 Active 2023 EMILI MILES MD [address] [place] [address], [address], [facility] 4 14:36:25 Chronic rhinitis 65779952 Active 2023 EMILI MILES MD [address] [place] [address], [address], [place] [facility] 08:53:38 Perennial allergic rhinitis 640674101 Active 2023 Brittany Raji 100 [facility], [address], [place], [address], [place] [facility] 09:55:03 Snoring 86542332 Active 2024 EMILI MILES MD 100 [facility],[place] [address], [place], [address], [place] [facility] 10:54:27 Problem Notes None recorded. Procedures Surgical History Date Name Laterality Status Provider Name and Address Organization Details Recorded Time 01/08/20 25 Allergy Immunotherapy Injections completed BECCA EVANS RN 100 [facility],[address], [address], [place] [facility] 01/07/2025 15:04:01 01/01/20 25 Allergy Immunotherapy Injections completed [address], [address], [place] [facility] 12/31/2024 09:47:12 12/25/19 25 Allergy Immunotherapy Injections completed [address], [address], [facility] 12/24/2024 09:35:38 12/18/19 25 Allergy Immunotherapy [facility] [address] [place] [address],[address], [address], [place] [facility] 12/17/2024 09:55:20 12/11/19 25 Allergy Immunotherapy Injections completed KM ACE 100 [facility],[address], [address], [facility] 12/10/2024 09:57:45 12/04/19 25 Allergy Immunotherapy Injections completed [facility] [address] [place] [address],[address], [address], [place] [facility] 12/03/2024 12:55:08 11/27/19 25 Allergy Immunotherapy Injections completed Brittany Raji [address] [facility] [address], [place], [address], [place] [facility] 11/26/2024 10:29:21 11/20/19 25 Allergy Immunotherapy Injections completed ALMA AHN, RMA [address], [place], [address], [place] [facility] 11/19/2024 10:23:58 11/13/19 25 Allergy Immunotherapy Injections completed Brittany Raji [address], [place], [address], [place] [facility] 11/12/2024 09:27:35 11/06/19 25 Allergy Immunotherapy Injections completed BECCA EVANS RN [address], [address], [place] [facility] 11/05/2024 09:31:55 10/29/19 25 Allergy Immunotherapy Injections completed MICHELLE MALHOTRA, [facility] [address] [facility], [place], [address], [place] [facility] 10/28/2024 13:57:02 10/23/19 25 Allergy Immunotherapy Injections completed [facility] [address] [facility] [place],[address] [place] [address], [address], [place] [facility] 10/22/2024 11:02:05 10/16/19 25 Allergy Immunotherapy Injections active [facility] [address] [address] [facility] [place],[address], [place], [address], [place] [facility] 10/15/2024 10:19:30 09/25/19 25 Allergy Immunotherapy Injections completed ALMA AHN, A [address] [facility] [place],[address] [place] [address], [address], [place] [facility] 09/24/2024 10:14:53 09/25/19 25 JMSNasal/Sinus Endoscopy completed EMILI Aguilar MD [address] [facility] [place],[address], [place], [address], [place] [facility] 09/24/2024 10:53:10 09/18/19 25 Allergy Immunotherapy Injections completed ALMA HAN, RMA [address], [place], [address], [place] [facility] 09/17/2024 09:45:03 09/09/19 25 Allergy Immunotherapy Injections completed ALMA AHN, RMA [address], [place], [address], [place] [facility] 09/08/2024 13:27:11 09/04/19 25 Allergy Immunotherapy Injections completed KM ACE [address], [place], [address], [place] [facility] 09/03/2024 10:33:12 08/28/19 25 Allergy Immunotherapy Injections completed KM ACE [address], [address], [place] [facility] 08/27/2024 09:30:02 08/21/19 25 Allergy Immunotherapy Injections completed BECCA EVANS RN [address] [address] [facility] [address] [place] [address], [address], [place] [facility] 08/20/2024 09:55:59 08/14/19 25 Allergy Immunotherapy Injections completed BECCA EVANS RN [address] [address] [facility] [address] [place] [address], [address], [place] [facility] 08/13/2024 10:22:32 08/07/19 25 Allergy Immunotherapy Injections completed BECCA EVANS RN [address] [facility] [place],[address] [place] [address], [address], [place] [facility] 08/06/2024 09:54:17 07/31/19 25 Allergy Immunotherapy Injections completed KM ACE [address], [address], [place] [facility] 07/30/2024 11:03:33 07/24/19 25 Allergy Immunotherapy Injections completed KM ACE [address], [address], [place] [facility] 07/23/2024 10:43:37 07/10/19 25 Allergy Immunotherapy Injections completed BECCA EVANS RN [address] [facility], [place], [address], [place] [facility] 07/09/2024 11:36:13 07/03/19 25 Allergy Immunotherapy Injections completed BECCA EVANS RN [address], [place], [address], [place] [facility] 07/02/2024 10:57:37 06/26/19 25 Allergy Immunotherapy Injections completed BECCA EVANS RN [address], [place], [address], [place] [facility] 06/25/2024 09:50:15 06/19/19 25 Allergy Immunotherapy Injections completed KM ACE [address], [place], [address], [place] [facility] 06/18/2024 09:35:42 06/12/19 25 Allergy Immunotherapy Injections completed ALMA AHN RMDarlin [address], [place], [address], [place] [facility] 06/11/2024 13:25:19 06/05/19 25 Allergy Immunotherapy Injections completed BECCA EVANS RN [address], [address], [place] [facility] 06/04/2024 13:12:38 05/29/19 25 Allergy Immunotherapy Injections completed ALMA AHN RMDarlin [address], [place], [address], [place] [facility] 05/28/2024 09:47:02 05/22/19 25 Allergy Immunotherapy Injections completed KM ACE [address], [address], [place] [facility] 05/21/2024 11:50:38 05/15/19 25 Allergy Immunotherapy Injections completed ALMA AHN RMA [address], [address], [place] [facility] 05/14/2024 14:40:25 05/07/19 25 Allergy Immunotherapy Injections completed BECCA EVANS RN [address], [address], [place] [facility] 05/07/2024 11:12:00 04/27/19 25 Allergy Immunotherapy Injections completed BECCA EVANS RN [address], [address], [place] [facility] 04/27/2024 13:26:05 04/23/19 25 Allergy Immunotherapy Injections completed ALMA AHN, RMA [address], [address], [place] [facility] 04/23/2024 10:51:49 04/16/19 25 Allergy Immunotherapy Injections completed ALMA AHN, RMA [address], [place], [address], [place] [facility] 04/16/2024 12:50:47 04/09/19 25 Allergy Immunotherapy Injections completed BECCA EVANS RN [address] [place] [address], [address], [place] [facility] 04/09/2024 09:50:33 04/02/19 25 Allergy Immunotherapy Injections completed BECCA EVANS RN [address] [place] [address], [address], [place] [facility] 04/02/2024 10:46:40 03/26/19 25 Allergy Immunotherapy Injections completed ALMA AHN, RMA [address], [address], [place] [facility] 03/26/2024 10:16:19 03/16/19 25 Allergy Immunotherapy Injections completed KM ACE [address], [address], [place] [facility] 03/16/2024 12:04:12 03/09/20 24 Allergy Immunotherapy Injections completed KM ACE [address], [address], [place] [facility] 03/09/2024 10:26:16 03/02/20 24 Allergy Immunotherapy Injections completed MICHELLE MALHOTRA, [facility] [address] [facility] [facility] [place],[address], [address], [facility] 03/02/2024 12:04:34 02/24/20 24 Allergy Immunotherapy Injections completed ALMA ELYSE, [facility] [address] [facility] [address] [facility] [facility] [place],[address], [address], [facility] 02/24/2024 11:20:06 02/16/20 24 [facility] [address] [facility] [place],[address], [address], [facility] 02/16/2024 09:38:03 01/02/20 24 Allergy Testing-Full completed ALMA AHN, [facility] 100 [facility],[address], [address], [facility] 01/02/2024 14:13:04 12/05/19 JMSNasal/Sinus Endoscopy completed EMILI Aguilar MD 100 [facility],[address], [address], [facility] 12/05/2023 14:35:53 open rhinoseptoplasty completed EMILI Aguilar MD [address] [facility] [place],[address], [address], [facility] 09/24/2024 10:52:41 Imaging Results None recorded. Procedure [...] Disorder N Anesthesia Complications N Heart Attack ([place]) N Other Skin Condition N Diabetes N [...] ICD10 Code Diagnosis IMO Codes Diagnosis Note [id number] EMILI MENEZES MD [facility] 100 [place] [address] 12/05/2023 13:55:58 12/05/2023 14:57:50 Nasal congestion 85961930 R09.81 Allergic rhinitis 019804 04 J30.9 Mild inter mittent asthma 945014768 J45.20 [id number] MICHELLE ODILIA, [facility] Allergy [address] [place] [address] 100 [place] [address] 12/05/2023 14:39:15 12/05/2023 15:38:00 Mild intermittent asthma 132832646 J45.20 [id number] ALMA PAPPAS, [facility] Allergy 100 [facility] 100 [place] [address] 01/02/2024 12:55:00 01/02/2024 14:16:16 Allergic rhinitis 13113810 J30.9 [id number] EMILI MENEZES MD [facility] 100 [place] [address] 01/30/2024 08:27:23 01/30/2024 08:56:28 Allergic rhinitis 22947361 J30.89 We discussed that given the significan [...] Use of an Epipen discussed. Nasal congestion 3963538 0 R09.81 Chronic rhinitis 4542678 6 J31.0 [id number] ALMA AHN [facility] [address] [place] [address] it [address] [place] [address] 02/16/2024 09:25:53 02/16/2024 09:39:29 Perennial allergic rhinitis 402220419 J30.89 Patient presents to begin immunother apy injections . Reviewed injection hours, importance of compliance and of reporting any changes in medication s. Also reviewed importance of reporting any local reactions to immunother apy injections . For patients of child bearing age, reviewed importance of reporting . Follow up with MD made in 6 months. [id number] ALMA AHN [facility] [address] [place] [address] 100 [place] [address] 02/24/2024 11:19:07 02/24/2024 11:20:43 Perennial allergic rhinitis 134030443 J30.89 Patient presents to begin immunother apy injections . Reviewed injection hours, importance of compliance and of reporting any changes in medication s. Also reviewed importance of reporting any local reactions to immunother apy injections . For patients of child bearing age, reviewed importance of reporting . Follow up with MD made in 6 months. [id number] BECCA EVANS RN Allergy [address] [place] [address] it[address] [place] [address] 03/02/2024 12:02:58 03/02/2024 12:05:15 Perennial allergic rhinitis 493994726 J30.89 [id number] KM ACE [facility] [address] [place] [address] it[address] [place] [address] 03/09/2024 10:13:13 03/09/2024 10:51:08 Perennial allergic rhinitis 513059830 J30.89 13736 KM ACE [facility] [address] [place] [address],[place] [address] [place] [address] 03/16/2024 12:03:10 03/16/2024 12:04:45 Perennial allergic rhinitis 465280925 J30.89 [id number] ALMA AHN [facility] [address] [place] [address], it[address] [place] [address] 03/26/2024 10:15:02 03/26/2024 10:17:04 Perennial allergic rhinitis 921148147 J30.89 Patient presents to begin immunother apy injections . Reviewed injection hours, importance of compliance and of reporting any changes in medication s. Also reviewed importance of reporting any local reactions to immunother apy injections . For patients of child bearing age, reviewed importance of reporting . Follow up with MD made in 6 months. [id number] BECCA EVANS RN Allergy [address] [place] [address], [address] 100 [facility] [place] [address] 04/02/2024 10:45:59 04/02/2024 11:00:20 Perennial allergic rhinitis 364028013 J30.89 [id number] BECCA EVANS RN Allergy [address] [place] [address], [address] 100 [facility] [place] [address] 04/09/2024 09:47:25 04/09/2024 09:51:32 Perennial allergic rhinitis 512306608 J30.89 [id number] ALMA PAPPAS [facility] Allergy [address] [place] [address], it[address] 100 [facility] [address] 04/16/2024 12:49:55 04/16/2024 12:51:18 Perennial allergic rhinitis 976863970 J30.89 Patient presents to begin immunother apy injections . Reviewed injection hours, importance of compliance and of reporting any changes in medication s. Also reviewed importance of reporting any local reactions to immunother apy injections . For patients of child bearing age, reviewed importance of reporting . Follow up with MD made in 6 months. [id number] ALMA PAPPAS [facility] Allergy [address] [place] [address],[place] 100 [facility] [place] [address] 04/23/2024 10:51:04 04/23/2024 11:09:05 Perennial allergic rhinitis 981658385 J30.89 Patient presents to begin immunother apy injections . Reviewed injection hours, importance of compliance and of reporting any changes in medication s. Also reviewed importance of reporting any local reactions to immunother apy injections . For patients of child bearing age, reviewed importance of reporting . Follow up with MD made in 6 months. [id number] BECAC EVANS RN Allergy [address] [place] [address],[place] 100 [facility] [place] [address] 04/27/2024 13:25:28 04/27/2024 13:26:35 Perennial allergic rhinitis 416550932 J30.89 [id number] ALMA PAPPAS [facility] Allergy [address] [place] [address],[place] [address] [place] [address] 05/07/2024 11:11:07 05/07/2024 11:12:27 Perennial allergic rhinitis 084536595 J30.89 Patient presents to begin immunother apy injections . Reviewed injection hours, importance of compliance and of reporting any changes in medication s. Also reviewed importance of reporting any local reactions to immunother apy injections . For patients of child bearing age, reviewed importance of reporting . Follow up with MD made in 6 months. [id number] MICHELLE MALHOTRA [facility] Allergy [address] [place] [address],[place] [address] [place] [address] 05/14/2024 14:37:59 05/14/2024 14:41:12 Perennial allergic rhinitis 900991705 J30.89 [id number] MICHELLE MALHOTRA [facility] Allergy [address] [place] [address],[place] [address] [place] [address] 05/21/2024 11:47:02 05/21/2024 11:53:01 Perennial allergic rhinitis 066213319 J30.89 [id number] ALMA PAPPAS [facility] Allergy [address] [place] [address],[place] [address] [place] [address] 05/28/2024 09:46:27 05/28/2024 09:47:29 Perennial allergic rhinitis 421853781 J30.89 Patient presents to begin immunother apy injections . Reviewed injection hours, importance of compliance and of reporting any changes in medication s. Also reviewed importance of reporting any local reactions to immunother apy injections . For patients of child bearing age, reviewed importance of reporting . Follow up with MD made in 6 months. [id number] ALMA PAPPAS A Allergy [address] [place] [address],[place] [address] [place] [address] 06/04/2024 13:09:56 06/04/2024 13:13:14 Perennial allergic rhinitis 104138581 J30.89 Patient presents to begin immunother apy injections . Reviewed injection hours, importance of compliance and of reporting any changes in medication s. Also reviewed importance of reporting any local reactions to immunother apy injections . For patients of child bearing age, reviewed importance of reporting . Follow up with MD made in 6 months. [id number] ALMA AHN, [facility] Allergy [address] [place] [address] 100 [facility] [place] [address] 06/11/2024 13:24:37 06/11/2024 13:25:50 Perennial allergic rhinitis 151482338 J30.89 Patient presents to begin immunother apy injections . Reviewed injection hours, importance of compliance and of reporting any changes in medication s. Also reviewed importance of reporting any local reactions to immunother apy injections . For patients of child bearing age, reviewed importance of reporting . Follow up with MD made in 6 months. [id number] MICHELLE MALHOTRA [facility] [address] [place] [address] 100 [place] [address] 06/18/2024 09:34:46 06/18/2024 09:36:08 Perennial allergic rhinitis 414592762 J30.89 [id number] BECCA EVANS RN Allergy [address] [place], [place] [address] 100 [place] [address] 06/25/2024 09:49:10 06/25/2024 09:50:40 Perennial allergic rhinitis 850182727 J30.89 [id number] BECCA EVANS RN Allergy [address] [place], [place] [address] 100 [place] [address] 07/02/2024 10:50:29 07/02/2024 10:58:12 Perennial allergic rhinitis 802687161 J30.89 [id number] BECCA EVANS RN Allergy [address] [place] [address] ite 100 [facility] [place] [address] 07/09/2024 11:31:22 07/09/2024 11:36:56 Perennial allergic rhinitis 194552705 J30.89 [id number] BECCA EVANS RN Allergy [address] [place] [address] ite 100 [facility] [place] [address] 07/23/2024 10:42:36 07/23/2024 10:44:05 Perennial allergic rhinitis 443785275 J30.89 [id number] MICHELLE MALHOTRA [facility] [address] [place], [place] [address] [address] 07/30/2024 11:02:51 07/30/2024 11:18:51 Perennial allergic rhinitis 685550833 J30.89 [id number] BECCA EVANS RN Allergy [address] [place] [address],[place] [address] [place] [address] 08/06/2024 09:53:14 08/06/2024 09:54:39 Perennial allergic rhinitis 311290926 J30.89 [id number] BECCA EVANS RN Allergy [address] [place] [address],[place] [address] [place] [address] 08/13/2024 10:21:45 08/13/2024 10:22:52 Perennial allergic rhinitis 754224011 J30.89 [id number] MICHELLE MALHOTRA [facility] [address] [place] [address], [address] [place] [address] 08/20/2024 09:53:21 08/20/2024 09:56:52 Perennial allergic rhinitis [id number] J30.89 [id number] BECCA EVANS RN Allergy [address] [place] [address], [address] [place] [address] 08/27/2024 09:29:25 08/27/2024 09:30:47 Perennial allergic rhinitis [id number] J30.89 [id number] KM ACE [facility] [address] [place] [address], [address] [place] [address] 09/03/2024 10:32:18 09/03/2024 10:33:33 Perennial allergic rhinitis [id number] J30.89 [id number] KM MATIAS All[facility] [address] [place] [address], [address] [place] [address] 09/08/2024 13:26:35 09/08/2024 13:27:35 Perennial allergic rhinitis 195397561 J30.89 Patient presents to begin immunother apy injections . Reviewed injection hours, importance of compliance and of reporting any changes in medication s. Also reviewed importance of reporting any local reactions to immunother apy injections . For patients of child bearing age, reviewed importance of reporting . Follow up with MD made in 6 months. [address] KM MATIAS [facility] [address] [place] [address] 100 [place] [address] 09/17/2024 09:44:18 09/17/2024 09:45:23 Perennial allergic rhinitis [id number] J30.89 Patient presents to begin immunother apy injections . Reviewed injection hours, importance of compliance and of reporting any changes in medication s. Also reviewed importance of reporting any local reactions to immunother apy injections . For patients of child bearing age, reviewed importance of reporting . Follow up with MD made in 6 months. [id number] EMILI MENEZES MD [facility] [address] [place] [address] 09/24/2024 10:02:33 09/24/2024 10:58:29 Mild intermittent asthma [id number] J45.20 Allergic rhinitis [id number] J30.89 Environmen yonny controls and saline irrigation s discussed. No evidence of nasal polyps. Snoring [id number] R06.83 [id number] exacerbate d by nasal congestion 136[address] [facility] [address] [place] [address], [place] [address] 09/24/2024 10:10:20 09/24/2024 10:19:08 Perennial allergic rhinitis [id number] J30.89 11849 BECCA EVANS RN Allergy [address] [place] [address], [place] [address] 10/22/2024 11:01:22 10/22/2024 11:02:41 Perennial allergic rhinitis [id number] J30.89 76501 MICHELLE MALHOTRA [facility] All[facility] [address] [place] [address] 100 [place] [address] 10/28/2024 13:55:34 10/28/2024 14:02:35 Perennial allergic rhinitis [id number] J30.89 90471 BECCA EVANS RN Allergy [address] [place] [address] 100 [facility] [place] [address] 11/05/2024 09:31:15 11/05/2024 09:32:16 Perennial allergic rhinitis [id number] J30.89 19000 BECCA EVANS RN Allergy [address] [place] [address],[place] [address] [place] [address] 11/12/2024 09:26:35 11/12/2024 09:29:03 Perennial allergic rhinitis [id number] J30.89 82534 [facility] Allergy 100 [facility],[place] [address] [place] [address] 11/19/2024 09:13:49 11/19/2024 10:24:26 Perennial allergic rhinitis [id number] J30.89 00633 [facility] Allergy 100 [facility],[place] [address] [place] [address] 11/26/2024 10:28:17 11/26/2024 10:30:02 Perennial allergic rhinitis [id number] J30.89 07602 BECCA EVANS RN Allergy [address] [place] [address], [address] [place] [address] 12/03/2024 09:48:14 12/03/2024 12:55:37 Perennial allergic rhinitis [id number] J30.89 05252 MICHELLE MALHOTRA, [facility] Allergy [address] [place] [address],[place] [address] [place] [address] 12/10/2024 09:12:12 12/10/2024 09:58:55 Perennial allergic rhinitis [id number] J30.89 90254 MICHELLE MALHOTRA, [facility] Allergy 100 [facility],[place] [address] [place] [address] 12/17/2024 09:36:38 12/17/2024 09:55:51 Perennial allergic rhinitis [id number] J30.89 60613 Brittany Raji [facility] [address] [place] [address],[place] [address] [place] [address] 12/24/2024 09:14:36 12/24/2024 09:36:00 Perennial allergic rhinitis [id number] J30.89 24454 Brittany Raji [facility] [address] [place] [address],[place] [address] [place] [address] 12/31/2024 09:11:28 12/31/2024 09:47:51 Perennial allergic rhinitis [id number] J30.89 53645 BECCA EVANS RN Allergy [address] [place] [address] 100 [place] [address] 01/07/2025 13:42:47 01/07/2025 15:04:19 Perennial allergic rhinitis [id number] J30.89 Health Concerns Section Related Observation LastModified by Organization Detai ls LastModified Time None Recorded Concern Status LastModified by Organization Details LastModified Time None Recorded Advance Directives Directive None Recorded Payers Insurance Date Sequence Insurance Name Policy Number Policy Pardo Covered Member ID Pardo Member ID Guarantor Name 03/20/2024 1 [facility] [id number] Venkata Marcel Caren Melara [id number] Venkata Melara 09/24/2024 1 [place] Venkata Marcel Caren [id number] Venkata Melara 06/16/2024 2 [place] [facility] [facility] [place]ID) Venkata Fabian [id number] Venkata Melara 01/07/2025 1 [facility] ([facility]) [id number] Venkata Fabian [id number] Venkata Melara 11/19/2024 1 [place] [place]ID[place] Venkata Fabian [id number] Venkata Melara OBGyn Episode No OBEpisode recorded.
[2025-01-08 09:03] LABS: MANUAL DIFF FLAG NO
[2025-01-08 09:31] LABS: Hematocrit 39.0 % (37.0-47.0); Hemoglobin 12.7 g/dl (12.0-16.0); Imm Gran Abs Auto 0.03 X10*3/uL (0.00-0.03); Imm Gran Pct Auto 0.5 % (0.0-0.4); Lymphocytes Absolute Auto 1.1 X10*3/uL (1.2-4.9); Mean Corpuscular HGB Conc 32.6 g/dl (31.0-35.0); Mean Corpuscular Hemoglobin 28.1 pg (27.0-33.0); Mean Corpuscular Volume 86.3 fL (80.0-98.0); NRBC Abs Auto 0.000 X10*3/uL (0.0-0.012); NRBC Pct Auto 0.0 /100WBC (0.0-0.2); Platelet Count 401 X10*3/uL (160-400); Red Blood Count 4.52 X10*6/uL (4.20-5.50); White Blood Count 6.4 X10*3/uL (4.8-10.8)
[2025-01-08 10:04] LABS: Alanine Aminotransferase 21 U/L (0-31); Albumin Level 4.6 g/dL (3.5-5.0); Alkaline Phosphatase 92 U/L (39-117); Anion Gap 12 (12-20); Aspartate Amino Transferase 33 U/L (5-31); Blood Urea Nitrogen 16 mg/dL (9-16); Calcium 10.2 mg/dL (8.4-10.2); Carbon Dioxide 29 mmol/L (22-29); Chloride 105 mmol/L (96-108); Cholesterol 139 mg/dL (<200); Estimated Glomerular Filt Rate > 60; HDL Cholesterol 46 mg/dL (>40); Potassium 3.7 mmol/L (3.3-5.1); Sodium 142 mmol/L (135-145); Total Protein 7.8 g/dL (6.5-8.0); Triglycerides 54 mg/dL (<150)
[2025-01-08 10:19] LABS: HIV Num 1 2.63 S/CO (0.00-0.99); ~HepC Num1 0.20 S/CO (0.00-0.79); ~Hepatitis C Antibody Nonreactive (Nonreactive)
[2025-01-08 11:19] LABS: HIV Num 2 0.07 S/CO; HIV Num 3 0.08 S/CO
== END 2025-01-08 08:53 | disposition home or self-care (01) ==
LOC: HO.LAB 08:52
PROVIDERS: PCP Internal Medicine; Visit Provider Internal Medicine
DX: Z00.00 Encounter for general adult medical examination without abnormal findings (principal); Z11.4 Encounter for screening for human immunodeficiency virus [HIV]
CPT/HCPCS: 36415; 80053; 80061; 82306; 83036; 84443; 85025; 86803; 87389